=== PATIENT | male | born 1955 | race Caucasian/White ===

== ENCOUNTER 2017-01-30 18:53 | Inpatient (IN) | payer MEDICAID ==
[2017-01-30] MEDS ORDERED: Pantoprazole 40 mg EC Tab PO STA (21:06)
--- NOTE | 2017-01-30 21:10 | ED Physician Chart ---
ED Chief Complaint/HPI - Patient Information Date Seen:: 01/30/17 Time Seen:: 21:08 Chief Complaint:: Skin rashes and stomach pain History of Present Illness:: 61 yo male was brought to ER by a caregiver at a facility. Per caregiver, the patient complained about skin rashes, stomach pain and constipation for 2 days. The patient also burped a lot. Allergies:: Allergies Allergy/AdvReac Type Severity Reaction Status Date / Time No Known Allergies Allergy Verified 01/30/17 19:57 Vitals:: Vital Signs - 8 hr 01/30/17 19:25 Temp 97.1 F HR 63 RR 20 BP 151/100 O2 Sat % 96 <Gloria Smith - Last Filed: 01/31/17 01:00> - Patient Information Allergies:: Allergies Allergy/AdvReac Type Severity Reaction Status Date / Time No Known Allergies Allergy Verified 01/30/17 19:57 Vitals:: Vital Signs - 8 hr 01/30/17 19:25 Temp 97.1 F HR 63 RR 20 BP 151/100 O2 Sat % 96 Historian:: Patient <Oleg Echevarria - Last Filed: 02/03/17 16:51> ED Review of Systems - Review of Systems General/Constitutional: No fever, No chills Skin: Skin lesions Head: No headache Eyes: No loss of vision ENT: No earache Neck: No neck pain Cardio Vascular: No chest pain Pulmonary: No SOB GI: No nausea, No vomiting, Pain (epigastric pain) Musculoskeletal: No bone or joint pain <Gloria Smith Last Filed: 01/31/17 01:00> ED Past Medical History - Past Medical History Past Medical History: PUD/GERD, Seizures, Other (tinea body) Social History: Non Smoker, No Alcohol, No Drug Use Surgical History: None <Gloria Smith Filed: 01/31/17 01:00> Family Medical History - Family Member Mother History Unknown: Yes <Gloria Smith Filed: 01/31/17 01:00> ED Physical Exam - Physical Examination General/Constitutional: Awake, Alert Head: Atraumatic Eyes: PERRL, EOMI Other Skin comments:: diffusely dry skin, erythematus scaly skin in bilateral skin folds on the chest and bilateral inguinal area ENMT: Nasal exam nl Neck: No nuchal rigidity Other Respiratory comments:: B/L crackles Cardio Vascular: RRR, No murmur, gallop, rubs, NL S1 S2 GI: No tenderness/rebounding/guarding Extremities: Full ROM, normal strength in all extremities Neuro/Psych: No focal deficits <Gloria Smith Last Filed: 01/31/17 01:00> ED Labs/Radiology/EKG Results - Lab Results Results: Laboratory Tests 01/30/17 01/30/17 01/30/17 21:36 21:36 22:45 WBC 5.5 RBC 4.42 Hgb 15.0 Hct 43.7 MCV 98.9 MCH 33.9 H MCHC Differential 34.3 RDW 13.1 Plt Count 100 L MPV 8.3 Neutrophils (Manual) 50 Lymphocytes 30 Monocytes 17 H Eosinophils 3 Platelet Estimate DECREASED PLATELETS Sodium 118 L* 120 L Potassium 3.7 4.1 Chloride 89 L 88 L Carbon Dioxide 23.9 26.5 Anion Gap 8.8 9.6 BUN 11 11 Creatinine 0.7 0.7 Est GFR ( Amer) > 60.0 > 60.0 Est GFR (Non-Af Amer) > 60.0 > 60.0 BUN/Creatinine Ratio 15.7 15.7 Glucose 89 84 Calcium 9.0 9.2 Total Bilirubin 0.6 AST 31 ALT 18 Alkaline Phosphatase 55 Total Protein 6.7 Albumin 4.1 L Globulin 2.6 Albumin/Globulin Ratio 1.6 <Oleg Echevarria - Last Filed: 02/03/17 16:51> ED Assessment - Assessment Critical Care Time: 45 min Excludes all billable procedures: Yes This condition life threatening/high prob of deterioration: No <Gloria Smith - Last Filed: 01/31/17 01:00> - Assessment General Assessment: admitted to med surg for 120 hyponatremia verified pmd aware and will manage fluids <Oleg Echevarria - Last Filed: 02/03/17 16:51> ED Septic Shock - . Is Septic Shock (SBP<90, OR Lactate>4 mmol\L) present?: No - <6hrs of presentation: Vital Signs: Vital Signs - 8 hr 01/30/17 19:25 Temp 97.1 F HR 63 RR 20 BP 151/100 O2 Sat % 96 <Gloria Smith Last Filed: 01/31/17 01:00> - <6hrs of presentation: Vital Signs: Vital Signs - 8 hr 01/30/17 19:25 Temp 97.1 F HR 63 RR 20 BP 151/100 O2 Sat % 96 <Oleg Echevarria - Last Filed: 02/03/17 16:51> ED Reassessment (Disposition) - Reassessment Reassessment Condition:: Unchanged - Patient Disposition Discharge/Transfer:: Acute Care w/in this hosp <Gloria Smith - Last Filed: 01/31/17 01:00> ED Discharge Plan <Gloria Smith - Last Filed: 01/31/17 01:00> <Oleg Echevarria - Last Filed: 02/03/17 16:51> - Patient Disposition Admit/Discharge/Transfer: Acute Care w/in this hosp Condition at Disposition: Stable
[2017-01-30 21:48] LABS: EOSINOPHILE ABSOLUTE 0.2 Th/cmm (0.1-0.4); HEMATOCRIT 43.7 % (41.0-60); LYMPHOCYTE ABSOLUTE 1.5 Th/cmm (1.5-3.0); MEAN CELL VOLUME 98.9 fl (80-99); MEAN CORPUSCULAR HEMOGLOBIN 33.9 pg (26.0-30.0); MEAN CORPUSCULAR HGB CONC 34.3 pg (28.0-36.0); MEAN PLATELET VOLUME 8.3 fl; NEUTROPHILE ABSOLUTE 2.8 Th/cmm (1.8-8.0); RED BLOOD COUNT 4.42 Mil/cmm (4.30-5.70); RED CELL DISTRIBUTION WIDTH 13.1 % (11.5-20.0); WHITE BLOOD COUNT 5.5 Th/cmm (4.8-10.8)
[2017-01-30 21:59] LABS: ALB/GLOB RATIO 1.6 (1.0-1.8); ALBUMIN 4.1 gm/dL (4.2-5.5); ALKALINE PHOSPHATASE 55 U/L (34-104); ANION GAP 8.8 (7.0-16.0); BILIRUBIN,TOTAL 0.6 mg/dL (0.3-1.0); BUN - UREA NITROGEN 11 mg/dL (7-25); CARBON DIOXIDE 23.9 mEq/L (21.0-31.0); CHLORIDE 89 mEq/L (98-107); CREATININE - SERUM 0.7 mg/dL (0.7-1.3); GFR AFRICAN-AMERICAN > 60.0 ml/min (>90); GFR NON AFRICAN-AMERICAN > 60.0 ml/min; GLUCOSE 89 mg/dL (70-105); PLATELET COUNT 100 Th/cmm (150-400); POTASSIUM SERUM 3.7 mEq/L (3.5-5.1); SGOT 31 U/L (13-39); SGPT/ALT 18 U/L (7-52); TOTAL PROTEIN,SERUM 6.7 gm/dL (6.0-8.3)
[2017-01-30] MEDS ORDERED: Pantoprazole 40 mg EC Tab PO ONE (21:59)
[2017-01-30 22:06] LABS: SODIUM SERUM 118 mEq/L (136-145)
[2017-01-30 22:35] LABS: EOSINOPHIL 3 % (0-5); LYMPHOCYTE 30 % (20-50); MONOCYTE 17 % (2-10); NEUTROPHILS 50 % (40-80)
[2017-01-30 22:36] LABS: PLATELET ESTIMATE DECREASED PLATELETS (NORMAL)
[2017-01-30 23:09] LABS: ANION GAP 9.6 (7.0-16.0); BUN - UREA NITROGEN 11 mg/dL (7-25); CALCIUM SERUM 9.2 mg/dL (8.6-10.3); CARBON DIOXIDE 26.5 mEq/L (21.0-31.0); CHLORIDE 88 mEq/L (98-107); CREATININE - SERUM 0.7 mg/dL (0.7-1.3); GFR AFRICAN-AMERICAN > 60.0 ml/min (>90); GFR NON AFRICAN-AMERICAN > 60.0 ml/min; GLUCOSE 84 mg/dL (70-105); POTASSIUM SERUM 4.1 mEq/L (3.5-5.1)
[2017-01-30 23:22] LABS: SODIUM SERUM 120 mEq/L (136-145)
[2017-01-30] MEDS ORDERED: NITROGLYCERIN OINT 2% 1 INCH PACKET TP STA (23:59)
[2017-01-31] MEDS ORDERED: NITROGLYCERIN OINT 2% 1 INCH PACKET TP ONE (00:06)
[2017-01-31 03:26] VITALS: BP 117/78
[2017-01-31] MEDS: Sodium Chloride 0.9% 1,000 ML IV SCH ×3 (03:27→22:08)
[2017-01-31 05:27] LABS: EOSINOPHILE ABSOLUTE 0.3 Th/cmm (0.1-0.4); HEMATOCRIT 43.9 % (41.0-60); HEMOGLOBIN 14.9 gm/dL (12-16); LYMPHOCYTE ABSOLUTE 1.4 Th/cmm (1.5-3.0); MEAN CELL VOLUME 99.1 fl (80-99); MEAN CORPUSCULAR HEMOGLOBIN 33.6 pg (26.0-30.0); MEAN CORPUSCULAR HGB CONC 33.9 pg (28.0-36.0); MEAN PLATELET VOLUME 8.4 fl; MONOCYTE ABSOLUTE 1.3 Th/cmm (0.3-1.0); NEUTROPHILE ABSOLUTE 4.4 Th/cmm (1.8-8.0); PLATELET COUNT 91 Th/cmm (150-400); RED BLOOD COUNT 4.43 Mil/cmm (4.30-5.70); RED CELL DISTRIBUTION WIDTH 12.9 % (11.5-20.0); WHITE BLOOD COUNT 7.4 Th/cmm (4.8-10.8)
[2017-01-31 05:46] LABS: ANION GAP 10.6 (7.0-16.0); BUN - UREA NITROGEN 10 mg/dL (7-25); CALCIUM SERUM 8.8 mg/dL (8.6-10.3); CARBON DIOXIDE 23.2 mEq/L (21.0-31.0); CHLORIDE 91 mEq/L (98-107); CREATININE - SERUM 0.7 mg/dL (0.7-1.3); GFR AFRICAN-AMERICAN > 60.0 ml/min (>90); GFR NON AFRICAN-AMERICAN > 60.0 ml/min; GLUCOSE 76 mg/dL (70-105); POTASSIUM SERUM 3.8 mEq/L (3.5-5.1); SODIUM SERUM 121 mEq/L (136-145)
--- NOTE | 2017-01-31 08:12 | History & Physical ---
ADMIT DATE: 01/31/2017 DATE OF SERVICE: 01/31/2017 HISTORY OF PRESENT ILLNESS: This is a 61-year-old male who was admitted from a [facility] and [facility] with chief complaint of abdominal pain and constipation. REVIEW OF SYSTEMS: GENERAL: This is a 61-year-old male that appears as stated. Denies any fever, denies any chills. HEAD: Denies any headache. Denies any dizziness. EYES: Denies any eye pain. Denies any blurring of vision. NECK: Denies any neck pain, denies any nuchal rigidity. CARDIOVASCULAR: Denies any chest pain, denies any palpitation. RESPIRATORY: Denies shortness of breath. Denies coughing. GASTROINTESTINAL: Positive abdominal pain. Positive constipation. Denies diarrhea. MUSCULOSKELETAL: Denies any joint pain. Denies any muscle pain. SOCIAL HISTORY: The patient lives in a [facility] and [facility] prior to hospitalization. PAST SURGICAL HISTORY: Unremarkable. FAMILY HISTORY: Unremarkable. PAST MEDICAL HISTORY: Includes hypertension, seizure, gastroesophageal reflux disease, benign prostatic hypertrophy, insomnia, bipolar. PHYSICAL EXAMINATION: GENERAL: This is a 61-year-old male that appears as stated. The patient is awake, alert, oriented x 2-3 with episodes of forgetfulness. HEENT: Head is atraumatic, normocephalic. Eyes: Bilateral conjunctivae are clear. Bilateral pupils are equally round and reactive. NECK: Supple. No JVD. CARDIOVASCULAR: S1 and S2, without murmur. PULMONARY: Clear to auscultation. GASTROINTESTINAL: Soft and nontender without guarding. Positive bowel sounds. MUSCULOSKELETAL: No clubbing, no cyanosis noted. ASSESSMENT: 1. Hyponatremia. 2. Hypertension. 3. Bipolar. 4. Seizure. 5. Gastroesophageal reflux disease. 6. Benign prostatic hypertrophy. 7. Insomnia. 8. Obesity. PLAN: We will keep the patient inpatient. We will follow up with the solid plasterer and also we will monitor the patient's electrolytes. We will continue to monitor the patient's condition and also nutritional status. Treatment plans were discussed with the patient's nurse. Treatment plans were discussed with Dr. Franz. JOB# [id number]
--- NOTE | 2017-01-31 08:35 | Diagnostic Imaging Report ---
CHEST X-RAY: AP view INDICATION: Cough COMPARISON: None FINDINGS: Increased bibasal linear markings are noted. No focal consolidation. There may be a trace right effusion. Suboptimal lung volume noted. Heart size at the upper limits of normal. Mildly tortuous aorta is noted. Degenerative changes of the spine are noted. IMPRESSION: Suboptimal lung volumes increased bibasal lung markings. Findings may be due to atelectasis. Faint infiltrate is considered less likely, however, clinical correlation is recommended.
[2017-01-31] MEDS ORDERED: PANTOPRAZOLE SODIUM 20 MG PO SCH (09:00)
[2017-01-31] MEDS: Benztropine 1 MG TAB PO SCH ×2 (10:07→17:14)
[2017-01-31] MEDS: Calcium Carb/Vit D 500 mg/200 U Tab PO SCH ×2 (10:08→17:12)
[2017-01-31] MEDS: Pantoprazole 40 mg EC Tab PO SCH (10:09)
[2017-01-31] MEDS ORDERED: VTE Chemical Prophylaxis Screen/Admission MC PRN (12:25)
[2017-01-31 19:01] LABS: URINE MICROSCOPIC INDICATED? YES; URINE SOURCE MIDSTREAM
[2017-01-31 19:05] LABS: URINE BILIRUBIN NEGATIVE (NEGATIVE); URINE BLOOD TRACE (NEGATIVE); URINE GLUCOSE (UA) NEGATIVE (NEGATIVE); URINE KETONE TRACE mg/dL (NEGATIVE); URINE LEUKOCYTE ESTERASE NEGATIVE (NEGATIVE); URINE NITRATE NEGATIVE (NEGATIVE); URINE PH 6.5 (4.6 - 8.0); URINE PROTEIN NEGATIVE (NEGATIVE); URINE UROBILINOGEN 0.2 E.U./dL (0.2 - 1.0)
[2017-01-31 19:07] LABS: URINE CLARITY CLEAR (CLEAR); URINE COLOR YELLOW
[2017-01-31 19:09] LABS: URINE BACTERIA NONE SEEN /hpf (NONE SEEN); URINE EPITHELIAL CELLS NONE SEEN /lpf (FEW); URINE RBC 0-2 /hpf (0-5); URINE WBC NONE SEEN /hpf (0-5)
[2017-02-01] MEDS: Sodium Chloride 0.9% 1,000 ML IV SCH ×3 (05:48→22:52)
[2017-02-01 06:51] LABS: ANION GAP 10.8 (7.0-16.0); BUN - UREA NITROGEN 11 mg/dL (7-25); CALCIUM SERUM 9.1 mg/dL (8.6-10.3); CARBON DIOXIDE 22.1 mEq/L (21.0-31.0); CHLORIDE 93 mEq/L (98-107); CREATININE - SERUM 0.8 mg/dL (0.7-1.3); GFR AFRICAN-AMERICAN > 60.0 ml/min (>90); GFR NON AFRICAN-AMERICAN > 60.0 ml/min; GLUCOSE 71 mg/dL (70-105); POTASSIUM SERUM 3.9 mEq/L (3.5-5.1); SODIUM SERUM 122 mEq/L (136-145); URIC ACID 2.7 mg/dL (4.4-7.6)
[2017-02-01] MEDS: Calcium Carb/Vit D 500 mg/200 U Tab PO SCH ×2 (08:56→16:29)
[2017-02-01] MEDS: Benztropine 1 MG TAB PO SCH ×2 (08:56→16:30)
[2017-02-01] MEDS: Pantoprazole 40 mg EC Tab PO SCH (08:57)
--- NOTE | 2017-02-01 09:24 | General Progress Note ---
Subjective - Review of Systems Events since last encounter: patient still with c/o abdominal pain patient awake alert Objective - Results Result Diagrams: 01/31/17 04:33 02/01/17 05:14 Recent Labs: Laboratory Last Values WBC 7.4 Th/cmm (4.8-10.8) D 01/31/17 04:33 RBC 4.43 Mil/cmm (4.30-5.70) 01/31/17 04:33 Hgb 14.9 gm/dL (12-16) 01/31/17 04:33 Hct 43.9 % (41.0-60) 01/31/17 04:33 MCV 99.1 fl (80-99) H 01/31/17 04:33 MCH 33.6 pg (26.0-30.0) H 01/31/17 04:33 MCHC Differential 33.9 pg (28.0-36.0) 01/31/17 04:33 RDW 12.9 % (11.5-20.0) 01/31/17 04:33 Plt Count 91 Th/cmm (150-400) L 01/31/17 04:33 MPV 8.4 fl 01/31/17 04:33 Neutrophils (Manual) 50 % (40-80) 01/30/17 21:36 Lymphocytes 30 % (20-50) 01/30/17 21:36 Monocytes 17 % (2-10) H 01/30/17 21:36 Eosinophils 3 % (0-5) 01/30/17 21:36 Platelet Estimate DECREASED PLATELETS (NORMAL) 01/30/17 21:36 Sodium 122 mEq/L (136-145) L 02/01/17 05:14 Potassium 3.9 mEq/L (3.5-5.1) 02/01/17 05:14 Chloride 93 mEq/L (98-107) L 02/01/17 05:14 Carbon Dioxide 22.1 mEq/L (21.0-31.0) 02/01/17 05:14 Anion Gap 10.8 (7.0-16.0) 02/01/17 05:14 BUN 11 mg/dL (7-25) 02/01/17 05:14 Creatinine 0.8 mg/dL (0.7-1.3) 02/01/17 05:14 Est GFR ( Amer) > 60.0 ml/min (>90) 02/01/17 05:14 Est GFR (Non-Af Amer) > 60.0 ml/min 02/01/17 05:14 BUN/Creatinine Ratio 13.8 02/01/17 05:14 Glucose 71 mg/dL (70-105) 02/01/17 05:14 Uric Acid 2.7 mg/dL (4.4-7.6) L 02/01/17 05:14 Calcium 9.1 mg/dL (8.6-10.3) 02/01/17 05:14 Total Bilirubin 0.6 mg/dL (0.3-1.0) 01/30/17 21:36 AST 31 U/L (13-39) 01/30/17 21:36 ALT 18 U/L (7-52) 01/30/17 21:36 Alkaline Phosphatase 55 U/L (34-104) 01/30/17 21:36 Total Protein 6.7 gm/dL (6.0-8.3) 01/30/17 21:36 Albumin 4.1 gm/dL (4.2-5.5) L 01/30/17 21:36 Globulin 2.6 gm/dL 01/30/17 21:36 Albumin/Globulin Ratio 1.6 (1.0-1.8) 01/30/17 21:36 TSH 2.34 uIU/ml (0.34-5.60) 02/01/17 05:14 Urine Source MIDSTREAM 01/31/17 18:28 Urine Color YELLOW 01/31/17 18:28 Urine Clarity CLEAR (CLEAR) 01/31/17 18:28 Urine pH 6.5 (4.6 - 8.0) 01/31/17 18:28 Ur Specific [place] 1.010 (1.005-1.030) 01/31/17 18:28 Urine Protein NEGATIVE mg/dL (NEGATIVE) 01/31/17 18:28 Urine Glucose (UA) NEGATIVE mg/dL (NEGATIVE) 01/31/17 18:28 Urine Ketones TRACE mg/dL (NEGATIVE) 01/31/17 18:28 Urine Blood TRACE (NEGATIVE) 01/31/17 18:28 Urine Nitrate NEGATIVE (NEGATIVE) 01/31/17 18:28 Urine Bilirubin NEGATIVE (NEGATIVE) 01/31/17 18:28 Urine Urobilinogen 0.2 E.U./dL (0.2 - 1.0) 01/31/17 18:28 Ur Leukocyte Esterase NEGATIVE (NEGATIVE) 01/31/17 18:28 Urine RBC 0-2 /hpf (0-5) H 01/31/17 18:28 Urine WBC NONE SEEN /hpf (0-5) 01/31/17 18:28 Ur Epithelial Cells NONE SEEN /lpf (FEW) 01/31/17 18:28 Urine Bacteria NONE SEEN /hpf (NONE SEEN) 01/31/17 18:28 - Physical Exam Vitals and I&O: Vital Signs Temp 98.0 F 02/01/17 07:59 Pulse 64 02/01/17 07:59 Resp 18 02/01/17 07:59 BP 143/86 02/01/17 07:59 Pulse Ox 97 02/01/17 07:59 Intake & Output 01/31/17 02/01/17 02/01/17 18:59 06:59 18:59 Intake Total 2500 2518.750 Output Total 1300 Balance 2500 1218.750 Weight (lbs) 96.162 kg 97.84 kg Intake: Intake, IV Amount 1000 2018.750 Sodium Chloride 0.9% 1, 1000 2018.750 000 ml @ 125 mls/hr IV . Q8H [facility] Rx#:[id number] Oral 1500 500 Output: Urine 1300 Other: # Voids 5 # Bowel Movements 0 Active Medications: Current Medications Acetaminophen (Tylenol) 650 mg PO Q4HR PRN PRN Reason: Pain (Mild) Last Admin: 02/01/17 00:20 Dose: 650 mg Aripiprazole (Abilify) 5 mg PO BID [facility] PRN Reason: Protocol Stop: 04/01/17 08:59 Atenolol (Tenormin) 25 mg PO DAILY [facility] Stop: 04/01/17 08:59 Last Admin: 01/31/17 10:33 Dose: Not Given Benztropine Mesylate (Cogentin) 2 mg PO BID [facility] Stop: 04/01/17 08:59 Last Admin: 02/01/17 08:56 Dose: 2 mg Buspirone HCl (Buspar) 10 mg PO BID [facility] Stop: 04/01/17 08:59 Calcium/Vitamin D (Oscal W/Vitamin D) 1 tab PO BID [facility] Stop: 04/01/17 08:59 Last Admin: 02/01/17 08:56 Dose: 1 tab Clotrimazole (Lotrimin 1% Cream) 1 appl TP DAILY JONATHAN Stop: 04/01/17 08:59 Last Admin: 02/01/17 09:04 Dose: Not Given Diphenhydramine HCl (Benadryl) 50 mg PO TID PRN PRN Reason: Itching Stop: 04/01/17 17:31 Divalproex Sodium (Depakote Dr) 500 mg PO BID JONATHAN PRN Reason: Protocol Stop: 04/01/17 08:59 Last Admin: 02/01/17 08:56 Dose: 500 mg Docusate Sodium (Colace) 100 mg PO BID JONATHAN Stop: 04/01/17 08:59 Last Admin: 02/01/17 08:57 Dose: 100 mg Sodium Chloride (Nacl 0.9%) 1,000 mls @ 125 mls/hr IV .Q8H JONATHAN Stop: 04/01/17 00:29 Last Infusion: 02/01/17 06:17 Dose: 125 mls/hr Levetiracetam (Keppra) 1,000 mg PO HS JONATHAN Stop: 04/01/17 20:59 Last Admin: 01/31/17 21:12 Dose: 1,000 mg Levetiracetam (Keppra) 750 mg PO BID [facility] Stop: 04/01/17 08:59 Last Admin: 02/01/17 08:57 Dose: 750 mg Miscellaneous (Vte [employer] Prophylaxis Screen/ Admission) 1 ea [facility] PRN PRN PRN Reason: PROTOCOL Stop: 04/01/17 12:24 Oxcarbazepine (Trileptal) 600 mg PO BID JONATHAN PRN Reason: Protocol Stop: 04/01/17 08:59 Last Admin: 02/01/17 08:57 Dose: 600 mg Pantoprazole Sodium (Protonix) 40 mg PO DAILY JONATHAN Stop: 04/01/17 08:59 Last Admin: 02/01/17 08:57 Dose: 40 mg Tamsulosin HCl (Flomax) 0.4 mg PO DAILY JONATHAN Stop: 04/01/17 08:59 Last Admin: 02/01/17 08:56 Dose: 0.4 mg
--- NOTE | 2017-02-01 09:50 | Diagnostic Imaging Report ---
KUB single view HISTORY: Abdominal pain distention. COMPARISON: None FINDINGS: Generalized gas-filled loops of bowel are noted. No abnormal calcifications identified. Osseous structures are intact. IMPRESSION: Generalized gaseous distended loops of bowel which is nonspecific. A mild ileus may be considered in the appropriate clinical setting.
--- NOTE | 2017-02-01 13:06 | Consultation ---
DATE OF CONSULTATION: 01/31/2017 REASON FOR CONSULTATION: Electrolyte imbalance and fluid management. HISTORY OF PRESENT ILLNESS: This is a 61-year-old male with past medical history of epilepsy, who came in because of constipation. A few hours prior to admission, the patient complained of abdominal pain. He had no bowel movement for several days. He had no episode of nausea and vomiting. Upon arrival at the Emergency Room, labs drawn revealed sodium of 120. PAST MEDICAL HISTORY: 1. Intellectual disability. 2. Epilepsy. 3. Essential hypertension. 4. GERD. 5. BPH. 6. Bipolar disorder. 7. Insomnia. CURRENT MEDICATIONS: He is currently on acetaminophen, Abilify, atenolol, Cogentin, BuSpar, clonidine, clotrimazole 1%, divalproex, docusate sodium, fluoxetine, levetiracetam, oxcarbazepine, pantoprazole, tamsulosin, and temazepam. ALLERGIES: No known drug allergies. SOCIAL AND FAMILY HISTORY: I was unable to obtain from the patient because the patient has slow mentation and unable to provide any information. REVIEW OF SYSTEMS: Again, I was unable to decipher directly from the patient because of the above mental reasons. PHYSICAL EXAMINATION: GENERAL: The patient is awake, mumbling, not in any distress. VITAL SIGNS: Blood pressure is 128/78, pulse 81, and temperature 97.9 degrees. SKIN: Good turgor, warm. He has macular rash in his upper extremities, linear papular rash on his abdomen, some on his legs. HEENT: Head: Normocephalic, atraumatic. Eyes: Extraocular muscles intact. Pupils equal, round, and reactive to light and accommodation. Anicteric sclerae. [place] conjunctivae. Nose: Midline nasal septum. Mouth: Moist mucosa with adequate dentition. NECK: Supple, no adenopathy, no thyromegaly, no bruits. Trachea palpated in the midline. CHEST AND CARDIOVASCULAR: S1 and S2. No rub, murmur, nor gallop appreciated. Point of maximal impulse fifth intercostal space, left midclavicular line. No abdominal or femoral bruits appreciated. LUNGS: Equal expansion. No use of accessory muscles. No supraclavicular retractions. Decreased breath sounds, but no rales nor wheezes appreciated. ABDOMEN: Globular, minimal bowel sounds, no tenderness on palpation. No bruits either diastolic or systolic. RECTAL: The patient refused. GENITOURINARY: Normal-appearing male genitalia. MUSCULOSKELETAL: No effusions present in his joints, but unable to assess his range of motion. EXTREMITIES: No evidence of any edema, cyanosis nor clubbing with palpable femoral, popliteal and dorsalis pedis pulses. NEUROLOGIC: The patient is awake; however, unable to follow my neuro commands, so I was not able to pursue further by neuro exam. LABORATORY DATA: Labs did reveal white count 7.4, hemoglobin 14.9, hematocrit 43.9, platelets 91, and polys 50%. Sodium was 121, potassium 3.8, chloride 91, bicarb 23, BUN 10, creatinine 0.7, glucose 76, and calcium 8.8. Albumin 4.1. IMPRESSION: 1. Hyponatremia, possibly syndrome of inappropriate antidiuretic hormone secondary to SSRI as well as carbamazepine in the form of Trileptal. 2. Macular rash, upper arms, etiology of possibly drug reaction. 3. Abdominal pain secondary to constipation, rule out ileus versus partial small bowel obstruction. 4. Fungal infection involving chest area. 5. Epilepsy. 6. Essential hypertension. 7. Gastroesophageal reflux disease. 8. Benign prostatic hypertrophy. 9. Bipolar disorder. 10. Insomnia. PLAN: 1. Discontinue SSRI. 2. Consider discontinuing Trileptal because carbamazepine can cause syndrome of inappropriate antidiuretic hormone. Consider switching to another antiepileptic drug. 3. Agree with clotrimazole which could be applied in the chest area. 4. Continue normal saline. 5. Urinalysis. 6. Continue with Colace. 7. Benadryl. 8. KUB. Thank you, Dr. Franz for this consult. I will follow the patient closely with you. JOB# [id number]
--- NOTE | 2017-02-01 15:13 | General Progress Note ---
Subjective - Review of Systems Service Date: 02/01/17 Subjective: awake, confused Objective - Results Result Diagrams: 01/31/17 04:33 02/01/17 05:14 Recent Labs: Laboratory Last Values WBC 7.4 Th/cmm (4.8-10.8) D 01/31/17 04:33 RBC 4.43 Mil/cmm (4.30-5.70) 01/31/17 04:33 Hgb 14.9 gm/dL (12-16) 01/31/17 04:33 Hct 43.9 % (41.0-60) 01/31/17 04:33 MCV 99.1 fl (80-99) H 01/31/17 04:33 MCH 33.6 pg (26.0-30.0) H 01/31/17 04:33 MCHC Differential 33.9 pg (28.0-36.0) 01/31/17 04:33 RDW 12.9 % (11.5-20.0) 01/31/17 04:33 Plt Count 91 Th/cmm (150-400) L 01/31/17 04:33 MPV 8.4 fl 01/31/17 04:33 Neutrophils (Manual) 50 % (40-80) 01/30/17 21:36 Lymphocytes 30 % (20-50) 01/30/17 21:36 Monocytes 17 % (2-10) H 01/30/17 21:36 Eosinophils 3 % (0-5) 01/30/17 21:36 Platelet Estimate DECREASED PLATELETS (NORMAL) 01/30/17 21:36 Sodium 122 mEq/L (136-145) L 02/01/17 05:14 Potassium 3.9 mEq/L (3.5-5.1) 02/01/17 05:14 Chloride 93 mEq/L (98-107) L 02/01/17 05:14 Carbon Dioxide 22.1 mEq/L (21.0-31.0) 02/01/17 05:14 Anion Gap 10.8 (7.0-16.0) 02/01/17 05:14 BUN 11 mg/dL (7-25) 02/01/17 05:14 Creatinine 0.8 mg/dL (0.7-1.3) 02/01/17 05:14 Est GFR ( Amer) > 60.0 ml/min (>90) 02/01/17 05:14 Est GFR (Non-Af Amer) > 60.0 ml/min 02/01/17 05:14 BUN/Creatinine Ratio 13.8 02/01/17 05:14 Glucose 71 mg/dL (70-105) 02/01/17 05:14 Uric Acid 2.7 mg/dL (4.4-7.6) L 02/01/17 05:14 Calcium 9.1 mg/dL (8.6-10.3) 02/01/17 05:14 Total Bilirubin 0.6 mg/dL (0.3-1.0) 01/30/17 21:36 AST 31 U/L (13-39) 01/30/17 21:36 ALT 18 U/L (7-52) 01/30/17 21:36 Alkaline Phosphatase 55 U/L (34-104) 01/30/17 21:36 Total Protein 6.7 gm/dL (6.0-8.3) 01/30/17 21:36 Albumin 4.1 gm/dL (4.2-5.5) L 01/30/17 21:36 Globulin 2.6 gm/dL 01/30/17 21:36 Albumin/Globulin Ratio 1.6 (1.0-1.8) 01/30/17 21:36 TSH 2.34 uIU/ml (0.34-5.60) 02/01/17 05:14 Urine Source MIDSTREAM 01/31/17 18:28 Urine Color YELLOW 01/31/17 18:28 Urine Clarity CLEAR (CLEAR) 01/31/17 18:28 Urine pH 6.5 (4.6 - 8.0) 01/31/17 18:28 Ur Specific [place] 1.010 (1.005-1.030) 01/31/17 18:28 Urine Protein NEGATIVE mg/dL (NEGATIVE) 01/31/17 18:28 Urine Glucose (UA) NEGATIVE mg/dL (NEGATIVE) 01/31/17 18:28 Urine Ketones TRACE mg/dL (NEGATIVE) 01/31/17 18:28 Urine Blood TRACE (NEGATIVE) 01/31/17 18:28 Urine Nitrate NEGATIVE (NEGATIVE) 01/31/17 18:28 Urine Bilirubin NEGATIVE (NEGATIVE) 01/31/17 18:28 Urine Urobilinogen 0.2 E.U./dL (0.2 - 1.0) 01/31/17 18:28 Ur Leukocyte Esterase NEGATIVE (NEGATIVE) 01/31/17 18:28 Urine RBC 0-2 /hpf (0-5) H 01/31/17 18:28 Urine WBC NONE SEEN /hpf (0-5) 01/31/17 18:28 Ur Epithelial Cells NONE SEEN /lpf (FEW) 01/31/17 18:28 Urine Bacteria NONE SEEN /hpf (NONE SEEN) 01/31/17 18:28 - Physical Exam Vitals and I&O: Vital Signs Temp 97.6 F 02/01/17 11:45 Pulse 80 02/01/17 11:45 Resp 18 02/01/17 11:45 BP 135/89 02/01/17 11:45 Pulse Ox 98 02/01/17 11:45 Intake & Output 01/31/17 02/01/17 02/01/17 18:59 06:59 18:59 Intake Total 2500 2518.750 943.749 Output Total 1300 Balance 2500 1218.750 943.749 Weight (lbs) 96.162 kg 97.84 kg Intake: Intake, IV Amount 1000 2017.750 943.749 Sodium Chloride 0.9% 1, 1000 2017.750 943.749 000 ml @ 125 mls/hr IV . Q8H [facility] Rx#:[id number] Oral 1500 500 Output: Urine 1300 Other: # Voids 5 # Bowel Movements 0 Active Medications: Current Medications Acetaminophen (Tylenol) 650 mg PO Q4HR PRN PRN Reason: Pain (Mild) Last Admin: 02/01/17 00:20 Dose: 650 mg Aripiprazole (Abilify) 5 mg PO BID [facility] PRN Reason: Protocol Stop: 04/01/17 08:59 Atenolol (Tenormin) 25 mg PO DAILY [facility] Stop: 04/01/17 08:59 Last Admin: 02/01/17 10:33 Dose: Not Given Benztropine Mesylate (Cogentin) 2 mg PO BID [facility] Stop: 04/01/17 08:59 Last Admin: 02/01/17 08:56 Dose: 2 mg Buspirone HCl (Buspar) 10 mg PO BID [facility] Stop: 04/01/17 08:59 Calcium/Vitamin D (Oscal W/Vitamin D) 1 tab PO BID [facility] Stop: 04/01/17 08:59 Last Admin: 02/01/17 08:56 Dose: 1 tab Diphenhydramine HCl (Benadryl) 50 mg PO TID PRN PRN Reason: Itching Stop: 04/01/17 17:31 Divalproex Sodium (Depakote Dr) 500 mg PO BID [facility] PRN Reason: Protocol Stop: 04/01/17 08:59 Last Admin: 02/01/17 08:56 Dose: 500 mg Docusate Sodium (Colace) 100 mg PO BID [facility] Stop: 04/01/17 08:59 Last Admin: 02/01/17 08:57 Dose: 100 mg Sodium Chloride (Nacl 0.9%) 1,000 mls @ 125 mls/hr IV .Q8H [facility] Stop: 04/01/17 00:29 Last Infusion: 02/01/17 14:34 Dose: 125 mls/hr Levetiracetam (Keppra) 1,000 mg PO HS [facility] Stop: 04/01/17 20:59 Last Admin: 01/31/17 21:12 Dose: 1,000 mg Levetiracetam (Keppra) 750 mg PO BID [facility] Stop: 04/01/17 08:59 Last Admin: 02/01/17 08:57 Dose: 750 mg Miscellaneous (Vte Chemical Prophylaxis Screen/ Admission) 1 ea [facility] PRN PRN PRN Reason: PROTOCOL Stop: 04/01/17 12:24 Oxcarbazepine (Trileptal) 600 mg PO BID [facility] PRN Reason: Protocol Stop: 04/01/17 08:59 Last Admin: 02/01/17 08:57 Dose: 600 mg Pantoprazole Sodium (Protonix) 40 mg PO DAILY [facility] Stop: 04/01/17 08:59 Last Admin: 02/01/17 08:57 Dose: 40 mg Tamsulosin HCl (Flomax) 0.4 mg PO DAILY [facility] Stop: 04/01/17 08:59 Last Admin: 02/01/17 08:56 Dose: 0.4 mg General: Alert, Mild distress HEENT: Atraumatic, PERRLA, EOMI, Mucous membr. 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 Macular rash 2nd drug reaction Abd pain mild ileus Fungal infxn chest area Epilepsy Ess HTN GERD BPH Bipolar Disorder Insomnia - Plan Plan: Lab - Result Diagrams 01/31/17 04:33 02/01/17 05:14 Current Medications Acetaminophen (Tylenol) 650 mg PO Q4HR PRN PRN Reason: Pain (Mild) Last Admin: 02/01/17 00:20 Dose: 650 mg Aripiprazole (Abilify) 5 mg PO BID [facility] PRN Reason: Protocol Stop: 04/01/17 08:59 Atenolol (Tenormin) 25 mg PO DAILY [facility] Stop: 04/01/17 08:59 Last Admin: 02/01/17 10:33 Dose: Not Given Benztropine Mesylate (Cogentin) 2 mg PO BID [facility] Stop: 04/01/17 08:59 Last Admin: 02/01/17 08:56 Dose: 2 mg Buspirone HCl (Buspar) 10 mg PO BID [facility] Stop: 04/01/17 08:59 Calcium/Vitamin D (Oscal W/Vitamin D) 1 tab PO BID [facility] Stop: 04/01/17 08:59 Last Admin: 02/01/17 08:56 Dose: 1 tab Diphenhydramine HCl (Benadryl) 50 mg PO TID PRN PRN Reason: Itching Stop: 04/01/17 17:31 Divalproex Sodium (Depakote Dr) 500 mg PO BID [facility] PRN Reason: Protocol Stop: 04/01/17 08:59 Last Admin: 02/01/17 08:56 Dose: 500 mg Docusate Sodium (Colace) 100 mg PO BID [facility] Stop: 04/01/17 08:59 Last Admin: 02/01/17 08:57 Dose: 100 mg Sodium Chloride (Nacl 0.9%) 1,000 mls @ 125 mls/hr IV .Q8H [facility] Stop: 04/01/17 00:29 Last Infusion: 02/01/17 14:34 Dose: 125 mls/hr Levetiracetam (Keppra) 1,000 mg PO HS [facility] Stop: 04/01/17 20:59 Last Admin: 01/31/17 21:12 Dose: 1,000 mg Levetiracetam (Keppra) 750 mg PO BID [facility] Stop: 04/01/17 08:59 Last Admin: 02/01/17 08:57 Dose: 750 mg Miscellaneous (Vte Chemical Prophylaxis Screen/ Admission) 1 ea PRN PRN PRN Reason: PROTOCOL Stop: 04/01/17 12:24 Oxcarbazepine (Trileptal) 600 mg PO BID [facility] PRN Reason: Protocol Stop: 04/01/17 08:59 Last Admin: 02/01/17 08:57 Dose: 600 mg Pantoprazole Sodium (Protonix) 40 mg PO DAILY [facility] Stop: 04/01/17 08:59 Last Admin: 02/01/17 08:57 Dose: 40 mg Tamsulosin HCl (Flomax) 0.4 mg PO DAILY [facility] Stop: 04/01/17 08:59 Last Admin: 02/01/17 08:56 Dose: 0.4 mg Lab - Result Diagrams 01/31/17 04:33 02/01/17 05:14 Na still low @ 122 even w/ NS Fluoxitene dc'ed already will also dc Trileptal switch to Lamictal f/u electrolytes
[2017-02-02 05:20] LABS: ANION GAP 10.9 (7.0-16.0); BUN - UREA NITROGEN 9 mg/dL (7-25); CALCIUM SERUM 9.3 mg/dL (8.6-10.3); CARBON DIOXIDE 25.1 mEq/L (21.0-31.0); CHLORIDE 93 mEq/L (98-107); CREATININE - SERUM 0.7 mg/dL (0.7-1.3); GFR AFRICAN-AMERICAN > 60.0 ml/min (>90); GFR NON AFRICAN-AMERICAN > 60.0 ml/min; GLUCOSE 81 mg/dL (70-105); SODIUM SERUM 125 mEq/L (136-145)
[2017-02-02] MEDS: Sodium Chloride 0.9% 1,000 ML IV SCH ×2 (06:25→16:38)
[2017-02-02] MEDS: Pantoprazole 40 mg EC Tab PO SCH (08:46)
[2017-02-02] MEDS: Benztropine 1 MG TAB PO SCH ×2 (08:47→16:32)
[2017-02-02] MEDS: Calcium Carb/Vit D 500 mg/200 U Tab PO SCH ×2 (08:48→16:33)
--- NOTE | 2017-02-02 09:34 | General Progress Note ---
Subjective - Review of Systems Events since last encounter: awake still confused Objective - Results Result Diagrams: 01/31/17 04:33 02/02/17 04:37 Recent Labs: Laboratory Last Values WBC 7.4 Th/cmm (4.8-10.8) D 01/31/17 04:33 RBC 4.43 Mil/cmm (4.30-5.70) 01/31/17 04:33 Hgb 14.9 gm/dL (12-16) 01/31/17 04:33 Hct 43.9 % (41.0-60) 01/31/17 04:33 MCV 99.1 fl (80-99) H 01/31/17 04:33 MCH 33.6 pg (26.0-30.0) H 01/31/17 04:33 MCHC Differential 33.9 pg (28.0-36.0) 01/31/17 04:33 RDW 12.9 % (11.5-20.0) 01/31/17 04:33 Plt Count 91 Th/cmm (150-400) L 01/31/17 04:33 MPV 8.4 fl 01/31/17 04:33 Neutrophils (Manual) 50 % (40-80) 01/30/17 21:36 Lymphocytes 30 % (20-50) 01/30/17 21:36 Monocytes 17 % (2-10) H 01/30/17 21:36 Eosinophils 3 % (0-5) 01/30/17 21:36 Platelet Estimate DECREASED PLATELETS (NORMAL) 01/30/17 21:36 Sodium 125 mEq/L (136-145) L 02/02/17 04:37 Potassium 4.0 mEq/L (3.5-5.1) 02/02/17 04:37 Chloride 93 mEq/L (98-107) L 02/02/17 04:37 Carbon Dioxide 25.1 mEq/L (21.0-31.0) 02/02/17 04:37 Anion Gap 10.9 (7.0-16.0) 02/02/17 04:37 BUN 9 mg/dL (7-25) 02/02/17 04:37 Creatinine 0.7 mg/dL (0.7-1.3) 02/02/17 04:37 Est GFR ( Amer) > 60.0 ml/min (>90) 02/02/17 04:37 Est GFR (Non-Af Amer) > 60.0 ml/min 02/02/17 04:37 BUN/Creatinine Ratio 12.9 02/02/17 04:37 Glucose 81 mg/dL (70-105) 02/02/17 04:37 Uric Acid 2.7 mg/dL (4.4-7.6) L 02/01/17 05:14 Calcium 9.3 mg/dL (8.6-10.3) 02/02/17 04:37 Total Bilirubin 0.6 mg/dL (0.3-1.0) 01/30/17 21:36 AST 31 U/L (13-39) 01/30/17 21:36 ALT 18 U/L (7-52) 01/30/17 21:36 Alkaline Phosphatase 55 U/L (34-104) 01/30/17 21:36 Total Protein 6.7 gm/dL (6.0-8.3) 01/30/17 21:36 Albumin 4.1 gm/dL (4.2-5.5) L 01/30/17 21:36 Globulin 2.6 gm/dL 01/30/17 21:36 Albumin/Globulin Ratio 1.6 (1.0-1.8) 01/30/17 21:36 TSH 2.34 uIU/ml (0.34-5.60) 02/01/17 05:14 Urine Source MIDSTREAM 01/31/17 18:28 Urine Color YELLOW 01/31/17 18:28 Urine Clarity CLEAR (CLEAR) 01/31/17 18:28 Urine pH 6.5 (4.6 - 8.0) 01/31/17 18:28 Ur Specific [place] 1.010 (1.005-1.030) 01/31/17 18:28 Urine Protein NEGATIVE mg/dL (NEGATIVE) 01/31/17 18:28 Urine Glucose (UA) NEGATIVE mg/dL (NEGATIVE) 01/31/17 18:28 Urine Ketones TRACE mg/dL (NEGATIVE) 01/31/17 18:28 Urine Blood TRACE (NEGATIVE) 01/31/17 18:28 Urine Nitrate NEGATIVE (NEGATIVE) 01/31/17 18:28 Urine Bilirubin NEGATIVE (NEGATIVE) 01/31/17 18:28 Urine Urobilinogen 0.2 E.U./dL (0.2 - 1.0) 01/31/17 18:28 Ur Leukocyte Esterase NEGATIVE (NEGATIVE) 01/31/17 18:28 Urine RBC 0-2 /hpf (0-5) H 01/31/17 18:28 Urine WBC NONE SEEN /hpf (0-5) 01/31/17 18:28 Ur Epithelial Cells NONE SEEN /lpf (FEW) 01/31/17 18:28 Urine Bacteria NONE SEEN /hpf (NONE SEEN) 01/31/17 18:28 - Physical Exam Vitals and I&O: Vital Signs Temp 97.1 F 02/02/17 04:00 Pulse 95 02/02/17 08:47 Resp 20 02/02/17 04:00 BP 136/94 02/02/17 08:47 Pulse Ox 95 02/02/17 04:00 Intake & Output 02/01/17 02/02/17 02/02/17 18:59 06:59 18:59 Intake Total 2443.749 2939.584 Output Total 1500 2670 Balance 943.749 269.584 Weight (lbs) 97.522 kg 97.704 kg Intake: Intake, IV Amount 138.805 7380.584 Sodium Chloride 0.9% 1, 518.059 9723.584 000 ml @ 125 mls/hr IV . Q8H [facility] Rx#:[id number] Oral 1500 1000 Output: Urine 1500 2670 Other: # Bowel Movements 1 0 Active Medications: Current Medications Acetaminophen (Tylenol) 650 mg PO Q4HR PRN PRN Reason: Pain (Mild) Last Admin: 02/01/17 00:20 Dose: 650 mg Aripiprazole (Abilify) 5 mg PO BID [facility] PRN Reason: Protocol Stop: 04/01/17 08:59 Last Admin: 02/02/17 08:48 Dose: 5 mg Atenolol (Tenormin) 25 mg PO DAILY [facility] Stop: 04/01/17 08:59 Last Admin: 02/02/17 08:47 Dose: 25 mg Benztropine Mesylate (Cogentin) 2 mg PO BID [facility] Stop: 04/01/17 08:59 Last Admin: 02/02/17 08:47 Dose: 2 mg Buspirone HCl (Buspar) 10 mg PO BID [facility] Stop: 04/01/17 08:59 Last Admin: 02/02/17 08:46 Dose: 10 mg Calcium/Vitamin D (Oscal W/Vitamin D) 1 tab PO BID [facility] Stop: 04/01/17 08:59 Last Admin: 02/02/17 08:48 Dose: 1 tab Diphenhydramine HCl (Benadryl) 50 mg PO TID PRN PRN Reason: Itching Stop: 04/01/17 17:31 Divalproex Sodium (Depakote Dr) 500 mg PO BID [facility] PRN Reason: Protocol Stop: 04/01/17 08:59 Last Admin: 02/02/17 08:46 Dose: 500 mg Docusate Sodium (Colace) 100 mg PO BID [facility] Stop: 04/01/17 08:59 Last Admin: 02/02/17 08:48 Dose: 100 mg Sodium Chloride (Nacl 0.9%) 1,000 mls @ 125 mls/hr IV .Q8H [facility] Stop: 04/01/17 00:29 Last Admin: 02/02/17 06:25 Dose: 125 mls/hr Lamotrigine (Lamictal) 25 mg PO Q48HR@0900 [facility] Stop: 04/02/17 15:29 Last Admin: 02/01/17 15:41 Dose: 25 mg Levetiracetam (Keppra) 1,000 mg PO HS [facility] Stop: 04/01/17 20:59 Last Admin: 02/01/17 23:27 Dose: 1,000 mg Levetiracetam (Keppra) 750 mg PO BID [facility] Stop: 04/01/17 08:59 Last Admin: 02/02/17 08:46 Dose: 750 mg Miscellaneous (Vte Chemical Prophylaxis Screen/ Admission) 1 ea [facility] PRN PRN PRN Reason: PROTOCOL Stop: 04/01/17 12:24 Pantoprazole Sodium (Protonix) 40 mg PO DAILY [facility] Stop: 04/01/17 08:59 Last Admin: 02/02/17 08:46 Dose: 40 mg Tamsulosin HCl (Flomax) 0.4 mg PO DAILY [facility] Stop: 04/01/17 08:59 Last Admin: 02/02/17 08:46 Dose: 0.4 mg General: Alert, Mild distress HEENT: Atraumatic, PERRLA, EOMI, Mucous membr. moist/pink Neck: Supple, +2 carotid pulse wo bruit Cardiovascular: Regular rate, Normal S1, Normal S2 Lungs: Clear to auscultation Abdomen: Bowel sounds, Soft Extremities: no Edema Neurological: Sensation intact Skin: no Rash Psych/Mental Status: Other (confused) Assessment/Plan - Problem List Patient Problems: All Active Problems Abdominal pain (Acute) R10.9 BPH (benign prostatic hyperplasia) (Acute) N40.0 Bipolar disorder (Acute) Drug allergy (Acute) Z88.9 Epilepsy (Acute) G40.909 GERD (gastroesophageal reflux disease) (Acute) K21.9 HTN (hypertension) (Acute) I10 Hyponatremia (Acute) E87.1 Ileus (Acute) K56.7 Insomnia (Acute) G47.00 Macular rash (Acute) R21 fungal infection chest area (Acute) - Plan Plan: labs monitor vitals diet f/up consultants
--- NOTE | 2017-02-02 18:44 | General Progress Note ---
Subjective - Review of Systems Service Date: 02/02/17 Subjective: awake, confused Objective - Results Result Diagrams: 01/31/17 04:33 02/02/17 04:37 Recent Labs: Laboratory Last Values WBC 7.4 Th/cmm (4.8-10.8) D 01/31/17 04:33 RBC 4.43 Mil/cmm (4.30-5.70) 01/31/17 04:33 Hgb 14.9 gm/dL (12-16) 01/31/17 04:33 Hct 43.9 % (41.0-60) 01/31/17 04:33 MCV 99.1 fl (80-99) H 01/31/17 04:33 MCH 33.6 pg (26.0-30.0) H 01/31/17 04:33 MCHC Differential 33.9 pg (28.0-36.0) 01/31/17 04:33 RDW 12.9 % (11.5-20.0) 01/31/17 04:33 Plt Count 91 Th/cmm (150-400) L 01/31/17 04:33 MPV 8.4 fl 01/31/17 04:33 Neutrophils (Manual) 50 % (40-80) 01/30/17 21:36 Lymphocytes 30 % (20-50) 01/30/17 21:36 Monocytes 17 % (2-10) H 01/30/17 21:36 Eosinophils 3 % (0-5) 01/30/17 21:36 Platelet Estimate DECREASED PLATELETS (NORMAL) 01/30/17 21:36 Sodium 125 mEq/L (136-145) L 02/02/17 04:37 Potassium 4.0 mEq/L (3.5-5.1) 02/02/17 04:37 Chloride 93 mEq/L (98-107) L 02/02/17 04:37 Carbon Dioxide 25.1 mEq/L (21.0-31.0) 02/02/17 04:37 Anion Gap 10.9 (7.0-16.0) 02/02/17 04:37 BUN 9 mg/dL (7-25) 02/02/17 04:37 Creatinine 0.7 mg/dL (0.7-1.3) 02/02/17 04:37 Est GFR ( Amer) > 60.0 ml/min (>90) 02/02/17 04:37 Est GFR (Non-Af Amer) > 60.0 ml/min 02/02/17 04:37 BUN/Creatinine Ratio 12.9 02/02/17 04:37 Glucose 81 mg/dL (70-105) 02/02/17 04:37 Uric Acid 2.7 mg/dL (4.4-7.6) L 02/01/17 05:14 Calcium 9.3 mg/dL (8.6-10.3) 02/02/17 04:37 Total Bilirubin 0.6 mg/dL (0.3-1.0) 01/30/17 21:36 AST 31 U/L (13-39) 01/30/17 21:36 ALT 18 U/L (7-52) 01/30/17 21:36 Alkaline Phosphatase 55 U/L (34-104) 01/30/17 21:36 Total Protein 6.7 gm/dL (6.0-8.3) 01/30/17 21:36 Albumin 4.1 gm/dL (4.2-5.5) L 01/30/17 21:36 Globulin 2.6 gm/dL 01/30/17 21:36 Albumin/Globulin Ratio 1.6 (1.0-1.8) 01/30/17 21:36 TSH 2.34 uIU/ml (0.34-5.60) 02/01/17 05:14 Urine Source MIDSTREAM 01/31/17 18:28 Urine Color YELLOW 01/31/17 18:28 Urine Clarity CLEAR (CLEAR) 01/31/17 18:28 Urine pH 6.5 (4.6 - 8.0) 01/31/17 18:28 Ur Specific [place] 1.010 (1.005-1.030) 01/31/17 18:28 Urine Protein NEGATIVE mg/dL (NEGATIVE) 01/31/17 18:28 Urine Glucose (UA) NEGATIVE mg/dL (NEGATIVE) 01/31/17 18:28 Urine Ketones TRACE mg/dL (NEGATIVE) 01/31/17 18:28 Urine Blood TRACE (NEGATIVE) 01/31/17 18:28 Urine Nitrate NEGATIVE (NEGATIVE) 01/31/17 18:28 Urine Bilirubin NEGATIVE (NEGATIVE) 01/31/17 18:28 Urine Urobilinogen 0.2 E.U./dL (0.2 - 1.0) 01/31/17 18:28 Ur Leukocyte Esterase NEGATIVE (NEGATIVE) 01/31/17 18:28 Urine RBC 0-2 /hpf (0-5) H 01/31/17 18:28 Urine WBC NONE SEEN /hpf (0-5) 01/31/17 18:28 Ur Epithelial Cells NONE SEEN /lpf (FEW) 01/31/17 18:28 Urine Bacteria NONE SEEN /hpf (NONE SEEN) 01/31/17 18:28 - Physical Exam Vitals and I&O: Vital Signs Temp 97.2 F 02/02/17 08:00 Pulse 95 02/02/17 08:47 Resp 20 02/02/17 08:00 BP 136/94 02/02/17 08:47 Pulse Ox 95 02/02/17 08:00 Intake & Output 02/01/17 02/02/17 12 18:59 06:59 18:59 Intake Total 2443.749 2939.584 1000 Output Total 1500 2670 Balance 943.749 952.725 8490 Weight (lbs) 97.522 kg 97.704 kg Intake: Intake, IV Amount 654.239 3513.584 1000 Sodium Chloride 0.9% 1, 352.625 6415.584 1000 000 ml @ 125 mls/hr IV . Q8H [facility] Rx#:[id number] Oral 1500 1000 Output: Urine 1500 2670 Other: # Bowel Movements 1 0 Active Medications: Current Medications Acetaminophen (Tylenol) 650 mg PO Q4HR PRN PRN Reason: Pain (Mild) Last Admin: 02/01/17 00:20 Dose: 650 mg Aripiprazole (Abilify) 5 mg PO BID [facility] PRN Reason: Protocol Stop: 04/01/17 08:59 Last Admin: 02/02/17 16:32 Dose: 5 mg Atenolol (Tenormin) 25 mg PO DAILY [facility] Stop: 04/01/17 08:59 Last Admin: 02/02/17 08:47 Dose: 25 mg Benztropine Mesylate (Cogentin) 2 mg PO BID [facility] Stop: 04/01/17 08:59 Last Admin: 02/02/17 16:32 Dose: 2 mg Buspirone HCl (Buspar) 10 mg PO BID [facility] Stop: 04/01/17 08:59 Last Admin: 02/02/17 16:33 Dose: 10 mg Calcium/Vitamin D (Oscal W/Vitamin D) 1 tab PO BID [facility] Stop: 04/01/17 08:59 Last Admin: 02/02/17 16:33 Dose: 1 tab Diphenhydramine HCl (Benadryl) 50 mg PO TID PRN PRN Reason: Itching Stop: 04/01/17 17:31 Divalproex Sodium (Depakote Dr) 500 mg PO BID [facility] PRN Reason: Protocol Stop: 04/01/17 08:59 Last Admin: 02/02/17 16:32 Dose: 500 mg Docusate Sodium (Colace) 100 mg PO BID [facility] Stop: 04/01/17 08:59 Last Admin: 02/02/17 16:33 Dose: 100 mg Sodium Chloride (Nacl 0.9%) 1,000 mls @ 125 mls/hr IV .Q8H [facility] Stop: 04/01/17 00:29 Last Admin: 02/02/17 16:38 Dose: 125 mls/hr Lamotrigine (Lamictal) 25 mg PO Q48HR@0900 [facility] Stop: 04/02/17 15:29 Last Admin: 02/01/17 15:41 Dose: 25 mg Levetiracetam (Keppra) 1,000 mg PO HS [facility] Stop: 04/01/17 20:59 Last Admin: 02/01/17 23:27 Dose: 1,000 mg Levetiracetam (Keppra) 750 mg PO BID [facility] Stop: 04/01/17 08:59 Last Admin: 02/02/17 16:32 Dose: 750 mg Miscellaneous (Vte Chemical Prophylaxis Screen/ Admission) 1 ea PRN PRN PRN Reason: PROTOCOL Stop: 04/01/17 12:24 Pantoprazole Sodium (Protonix) 40 mg PO DAILY [facility] Stop: 04/01/17 08:59 Last Admin: 02/02/17 08:46 Dose: 40 mg Tamsulosin HCl (Flomax) 0.4 mg PO DAILY [facility] Stop: 04/01/17 08:59 Last Admin: 02/02/17 08:46 Dose: 0.4 mg General: Alert, Mild distress HEENT: Atraumatic, PERRLA, EOMI, Mucous membr. moist/pink Neck: Supple, +2 carotid pulse wo bruit Cardiovascular: Regular rate, Normal S1, Normal S2 Lungs: Clear to auscultation Abdomen: Bowel sounds, Soft Extremities: no Edema Neurological: Sensation intact Skin: no Rash Psych/Mental Status: Other (confused) Assessment/Plan - Problem List Patient Problems: All Active Problems Abdominal pain (Acute) R10.9 BPH (benign prostatic hyperplasia) (Acute) N40.0 Bipolar disorder (Acute) Drug allergy (Acute) Z88.9 Epilepsy (Acute) G40.909 GERD (gastroesophageal reflux disease) (Acute) K21.9 HTN (hypertension) (Acute) I10 Hyponatremia (Acute) E87.1 Ileus (Acute) K56.7 Insomnia (Acute) G47.00 Macular rash (Acute) R21 fungal infection chest area (Acute) - Assessment Assessment: 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 Macular rash 2nd drug reaction Abd pain mild ileus Fungal infxn chest area Epilepsy Ess HTN GERD BPH Bipolar Disorder Insomnia - Plan Plan: Lab - Result Diagrams 01/31/17 04:33 02/01/17 05:14 Current Medications Acetaminophen (Tylenol) 650 mg PO Q4HR PRN PRN Reason: Pain (Mild) Last Admin: 02/01/17 00:20 Dose: 650 mg Aripiprazole (Abilify) 5 mg PO BID [facility] PRN Reason: Protocol Stop: 04/01/17 08:59 Atenolol (Tenormin) 25 mg PO DAILY [facility] Stop: 04/01/17 08:59 Last Admin: 02/01/17 10:33 Dose: Not Given Benztropine Mesylate (Cogentin) 2 mg PO BID [facility] Stop: 04/01/17 08:59 Last Admin: 02/01/17 08:56 Dose: 2 mg Buspirone HCl (Buspar) 10 mg PO BID [facility] Stop: 04/01/17 08:59 Calcium/Vitamin D (Oscal W/Vitamin D) 1 tab PO BID [facility] Stop: 04/01/17 08:59 Last Admin: 02/01/17 08:56 Dose: 1 tab Diphenhydramine HCl (Benadryl) 50 mg PO TID PRN PRN Reason: Itching Stop: 02/14/18 17:31 Divalproex Sodium (Depakote Dr) 500 mg PO BID [facility] PRN Reason: Protocol Stop: 04/01/17 08:59 Last Admin: 02/01/17 08:56 Dose: 500 mg Docusate Sodium (Colace) 100 mg PO BID [facility] Stop: 04/01/17 08:59 Last Admin: 02/01/17 08:57 Dose: 100 mg Sodium Chloride (Nacl 0.9%) 1,000 mls @ 125 mls/hr IV .Q8H [facility] Stop: 04/01/17 00:29 Last Infusion: 02/01/17 14:34 Dose: 125 mls/hr Levetiracetam (Keppra) 1,000 mg PO HS [facility] Stop: 04/01/17 20:59 Last Admin: 01/31/17 21:12 Dose: 1,000 mg Levetiracetam (Keppra) 750 mg PO BID [facility] Stop: 04/01/17 08:59 Last Admin: 02/01/17 08:57 Dose: 750 mg Miscellaneous ([employer] Prophylaxis Screen/ Admission) 1 ea [facility] PRN PRN PRN Reason: PROTOCOL Stop: 04/01/17 12:24 Oxcarbazepine (Trileptal) 600 mg PO BID [facility] PRN Reason: Protocol Stop: 04/01/17 08:59 Last Admin: 02/01/17 08:57 Dose: 600 mg Pantoprazole Sodium (Protonix) 40 mg PO DAILY [facility] Stop: 04/01/17 08:59 Last Admin: 02/01/17 08:57 Dose: 40 mg Tamsulosin HCl (Flomax) 0.4 mg PO DAILY [facility] Stop: 04/01/17 08:59 Last Admin: 02/01/17 08:56 Dose: 0.4 mg Lab - Result Diagrams 01/31/17 04:33 02/02/17 04:37 Na improved @ 122 even w/ NS Fluoxitene dc'ed already will also dc Trileptal switch to Lamictal f/u electrolytes
[2017-02-03] MEDS: Sodium Chloride 0.9% 1,000 ML IV SCH ×2 (01:05→08:48)
[2017-02-03 05:58] LABS: ANION GAP 8.2 (7.0-16.0); BUN - UREA NITROGEN 12 mg/dL (7-25); CALCIUM SERUM 9.2 mg/dL (8.6-10.3); CARBON DIOXIDE 24.7 mEq/L (21.0-31.0); CHLORIDE 95 mEq/L (98-107); CREATININE - SERUM 0.8 mg/dL (0.7-1.3); GFR AFRICAN-AMERICAN > 60.0 ml/min (>90); GFR NON AFRICAN-AMERICAN > 60.0 ml/min; GLUCOSE 76 mg/dL (70-105); POTASSIUM SERUM 3.9 mEq/L (3.5-5.1); SODIUM SERUM 124 mEq/L (136-145)
[2017-02-03] MEDS: Calcium Carb/Vit D 500 mg/200 U Tab PO SCH ×2 (08:48→16:31)
[2017-02-03] MEDS: Benztropine 1 MG TAB PO SCH ×2 (08:49→16:31)
[2017-02-03] MEDS: Pantoprazole 40 mg EC Tab PO SCH (08:50)
--- NOTE | 2017-02-03 12:39 | Internal Medicine Prog Note ---
Internal Medicine Subjective - Subjective Service Date: 02/03/17 Patient seen and examined:: with staff Patient is:: awake, confused Per staff patient has:: no adverse event, tolerating meds Internal Medicine Objective - Results Result Diagrams: 01/31/17 04:33 02/03/17 05:00 Recent Labs: Laboratory Last Values WBC 7.4 Th/cmm (4.8-10.8) D 01/31/17 04:33 RBC 4.43 Mil/cmm (4.30-5.70) 01/31/17 04:33 Hgb 14.9 gm/dL (-16) 01/31/17 04:33 Hct 43.9 % (41.0-60) 01/31/17 04:33 MCV 99.1 fl (80-99) H 01/31/17 04:33 MCH 33.6 pg (26.0-30.0) H 01/31/17 04:33 MCHC Differential 33.9 pg (28.0-36.0) 01/31/17 04:33 RDW 12.9 % (11.5-20.0) 01/31/17 04:33 Plt Count 91 Th/cmm (150-400) L 01/31/17 04:33 MPV 8.4 fl 01/31/17 04:33 Neutrophils (Manual) 50 % (40-80) 01/30/17 21:36 Lymphocytes 30 % (20-50) 01/30/17 21:36 Monocytes 17 % (2-10) H 01/30/17 21:36 Eosinophils 3 % (0-5) 01/30/17 21:36 Platelet Estimate DECREASED PLATELETS (NORMAL) 01/30/17 21:36 Sodium 124 mEq/L (136-145) L 02/03/17 05:00 Potassium 3.9 mEq/L (3.5-5.1) 02/03/17 05:00 Chloride 95 mEq/L (98-107) L 02/03/17 05:00 Carbon Dioxide 24.7 mEq/L (21.0-31.0) 02/03/17 05:00 Anion Gap 8.2 (7.0-16.0) 02/03/17 05:00 BUN 12 mg/dL (7-25) 02/03/17 05:00 Creatinine 0.8 mg/dL (0.7-1.3) 02/03/17 05:00 Est GFR ( Amer) > 60.0 ml/min (>90) 02/03/17 05:00 Est GFR (Non-Af Amer) > 60.0 ml/min 02/03/17 05:00 BUN/Creatinine Ratio 15.0 02/03/17 05:00 Glucose 76 mg/dL (70-105) 02/03/17 05:00 Plasma/Ser Osmolality 253 mOsmol/kg (275-295) L 01/31/17 04:33 Uric Acid 2.7 mg/dL (4.4-7.6) L 02/01/17 05:14 Calcium 9.2 mg/dL (8.6-10.3) 02/03/17 05:00 Total Bilirubin 0.6 mg/dL (0.3-1.0) 01/30/17 21:36 AST 31 U/L (13-39) 01/30/17 21:36 ALT 18 U/L (7-52) 01/30/17 21:36 Alkaline Phosphatase 55 U/L (34-104) 01/30/17 21:36 Total Protein 6.7 gm/dL (6.0-8.3) 01/30/17 21:36 Albumin 4.1 gm/dL (4.2-5.5) L 01/30/17 21:36 Globulin 2.6 gm/dL 01/30/17 21:36 Albumin/Globulin Ratio 1.6 (1.0-1.8) 01/30/17 21:36 TSH 2.34 uIU/ml (0.34-5.60) 02/01/17 05:14 Urine Source MIDSTREAM 01/31/17 18:28 Urine Color YELLOW 01/31/17 18:28 Urine Clarity CLEAR (CLEAR) 01/31/17 18:28 Urine pH 6.5 (4.6 - 8.0) 01/31/17 18:28 Ur Specific [place] 1.010 (1.005-1.030) 01/31/17 18:28 Urine Protein NEGATIVE mg/dL (NEGATIVE) 01/31/17 18:28 Urine Glucose (UA) NEGATIVE mg/dL (NEGATIVE) 01/31/17 18:28 Urine Ketones TRACE mg/dL (NEGATIVE) 01/31/17 18:28 Urine Blood TRACE (NEGATIVE) 01/31/17 18:28 Urine Nitrate NEGATIVE (NEGATIVE) 01/31/17 18:28 Urine Bilirubin NEGATIVE (NEGATIVE) 01/31/17 18:28 Urine Urobilinogen 0.2 E.U./dL (0.2 - 1.0) 01/31/17 18:28 Ur Leukocyte Esterase NEGATIVE (NEGATIVE) 01/31/17 18:28 Urine RBC 0-2 /hpf (0-5) H 01/31/17 18:28 Urine WBC NONE SEEN /hpf (0-5) 01/31/17 18:28 Ur Epithelial Cells NONE SEEN /lpf (FEW) 01/31/17 18:28 Urine Bacteria NONE SEEN /hpf (NONE SEEN) 01/31/17 18:28 - Physical Exam Vitals and I&O: Vital Signs Temp 97.8 F 02/03/17 11:55 Pulse 72 02/03/17 11:55 Resp 18 02/03/17 11:55 BP 143/83 02/03/17 11:55 Pulse Ox 97 02/03/17 11:55 Intake & Output 02/02/17 02/03/17 02/03/17 18:59 06:59 18:59 Intake Total 1000 2293.75 320.833 Output Total 2775 Balance 1000 -481.25 320.833 Weight (lbs) 212 lb 8 oz Intake: Intake, IV Amount 1000 1643.75 320.833 Sodium Chloride 0.9% 1, 1000 1643.75 320.833 000 ml @ 125 mls/hr IV . Q8H [facility] Rx#:[id number] Oral 650 Output: Urine 2775 Other: # Voids 4 Active Medications: Current Medications Acetaminophen (Tylenol) 650 mg PO Q4HR PRN PRN Reason: Pain (Mild) Last Admin: 02/01/17 00:20 Dose: 650 mg Aripiprazole (Abilify) 5 mg PO BID [facility] PRN Reason: Protocol Stop: 04/01/17 08:59 Last Admin: 02/03/17 08:50 Dose: 5 mg Atenolol (Tenormin) 25 mg PO DAILY [facility] Stop: 04/01/17 08:59 Last Admin: 02/03/17 08:48 Dose: 25 mg Benztropine Mesylate (Cogentin) 2 mg PO BID [facility] Stop: 04/01/17 08:59 Last Admin: 02/03/17 08:49 Dose: 2 mg Betamethasone/Clotrimazole (Lotrisone Cream) 1 appl TP BID [facility] Stop: 04/04/17 16:59 Buspirone HCl (Buspar) 10 mg PO BID [facility] Stop: 04/01/17 08:59 Last Admin: 02/03/17 08:49 Dose: 10 mg Calcium/Vitamin D (Oscal W/Vitamin D) 1 tab PO BID [facility] Stop: 04/01/17 08:59 Last Admin: 02/03/17 08:48 Dose: 1 tab Diphenhydramine HCl (Benadryl) 50 mg PO TID PRN PRN Reason: Itching Stop: 04/01/17 17:31 Divalproex Sodium (Depakote Dr) 500 mg PO BID [facility] PRN Reason: Protocol Stop: 04/01/17 08:59 Last Admin: 02/03/17 08:50 Dose: 500 mg Docusate Sodium (Colace) 100 mg PO BID [facility] Stop: 04/01/17 08:59 Last Admin: 02/03/17 08:50 Dose: 100 mg Sodium Chloride (Nacl 0.9%) 1,000 mls @ 125 mls/hr IV .Q8H [facility] Stop: 04/01/17 00:29 Last Admin: 02/03/17 08:48 Dose: 125 mls/hr Ceftriaxone Sodium 1 gm/ (Dextrose) 50 mls @ 100 mls/hr IV Q24H [facility] Stop: 04/04/17 10:59 Last Admin: 02/03/17 12:23 Dose: 100 mls/hr Lactic Acid (Lac-Hydrin Cream) 1 appl TP BID [facility] Stop: 04/04/17 16:59 Lamotrigine (Lamictal) 25 mg PO Q48HR@0900 [facility] Stop: 04/02/17 15:29 Last Admin: 02/03/17 08:48 Dose: 25 mg Levetiracetam (Keppra) 1,000 mg PO HS [facility] Stop: 04/01/17 20:59 Last Admin: 02/02/17 21:42 Dose: 1,000 mg Levetiracetam (Keppra) 750 mg PO BID [facility] Stop: 04/01/17 08:59 Last Admin: 02/03/17 08:48 Dose: 750 mg Miscellaneous (Vte Chemical Prophylaxis Screen/ Admission) 1 ea PRN PRN PRN Reason: PROTOCOL Stop: 04/01/17 12:24 Pantoprazole Sodium (Protonix) 40 mg PO DAILY [facility] Stop: 04/01/17 08:59 Last Admin: 02/03/17 08:50 Dose: 40 mg Tamsulosin HCl (Flomax) 0.4 mg PO DAILY [facility] Stop: 04/01/17 08:59 Last Admin: 02/03/17 08:48 Dose: 0.4 mg General: weak HEENT: NC/AT, PERRLA Neck: Supple Lungs: CTAB Cardiovascular: RRR, Normal S1, Normal S2 Abdomen: soft, non-tender, non-distended, positive bowel sound Extremities: excoriation Neurological: no change Internal Medicine Assmt/Plan - Assessment Assessment: Abdominal pain (Acute) R10.9 BPH (benign prostatic hyperplasia) (Acute) N40.0 Bipolar disorder (Acute) Drug allergy (Acute) Z88.9 Epilepsy (Acute) G40.909 GERD (gastroesophageal reflux disease) (Acute) K21.9 HTN (hypertension) (Acute) I10 Hyponatremia (Acute) E87.1 Ileus (Acute) K56.7 Insomnia (Acute) G47.00 Macular rash (Acute) R21 fungal infection chest area (Acute) - Plan Plan: follow up labs in am contact isolation continue current orders
--- NOTE | 2017-02-03 15:01 | Consultation ---
DATE OF CONSULTATION: 02/03/2017 REFERRING PHYSICIAN: Dr. Franz. REASON FOR CONSULTATION: Rash, cellulitis of left leg. HISTORY OF PRESENT ILLNESS: The patient is a 61-year-old male with a past medical history of hypertension, seizure disorder, GERD, BPH, insomnia, bipolar disorder, brought in to the hospital for abdominal pain and constipation. On further evaluation, the patient was found to have fungal rash under the breast, worse on the right side and redness of the left lower extremity with dry skin. ID consult was called for further evaluation and management. On initial evaluation, the patient's temperature was 97.1 degree Fahrenheit and WBC count was 7400. PAST MEDICAL HISTORY: As mentioned above, bipolar disorder, seizure disorder, hypertension, GERD, BPH, insomnia. ALLERGIES: NKDA. MEDICATIONS: As per medication reconciliation sheet. No antibiotic at this time. REVIEW OF SYSTEMS: GENERAL: The patient has no fever, no chills. HEENT: No diplopia, no photophobia, no sore throat. RESPIRATORY: No cough, no shortness of breath. CARDIOVASCULAR: No chest pain or palpitation. GASTROINTESTINAL: No nausea, no vomiting, no diarrhea, no constipation. GENITOURINARY: No dysuria. NEUROLOGIC: No headache, no dizziness. No focal weakness. SKIN: The patient has rash under lower chest bilaterally. The patient also has some redness and dry skin of the left leg. There is no swelling. The patient has some itchiness of both hands dorsal aspect. PHYSICAL EXAMINATION: VITAL SIGNS: Shows temperature is 97.4 degrees Fahrenheit, pulse 68, respirations 18, blood pressure 163/92. GENERAL: The patient is comfortable lying in the bed, not in acute distress. HEENT: Head is normocephalic, atraumatic. Oral mucosa moist, pink tongue. Eyes: Pallor is present, no icterus. PERRLA, EOMI. NECK: Supple, no JVD, no carotid bruit. Trachea in midline. CHEST: Bilateral breath sounds. No crackles or wheezing. HEART: S1, S2 within normal limit. Regular rhythm. No murmur, no gallop. ABDOMEN: Soft, nontender, nondistended. Bowel sounds present. EXTREMITIES: No cyanosis, no clubbing, no edema. NEUROLOGIC: Alert, awake ____ as well. Confused. LABORATORY DATA: Current lab shows WBC count is 7400, hemoglobin 14.9, hematocrit 43, platelets are 91,000. Sodium 124, potassium 3.9, chloride 95, bicarbonate is 24.7 and BUN is 12, creatinine 0.8, glucose is 76. Urinalysis shows negative nitrite, negative leukoesterase. WBCs none. Bacteria none. There is RBC 0-2. IMPRESSION: 1. Cellulitis of left leg. 2. Tinea corporis. 3. Hematuria. 4. Hypertension. 5. Bipolar disorder. 6. Seizure disorder. 7. Benign prostatic hypertrophy. 8. Dry skin dermatitis. RECOMMENDATIONS: 1. We will provide some moisturizer cream A and D or Lac-Hydrin. 2. For the cellulitis of left leg, we will provide Rocephin, which can be changed to Keflex to complete 10 days of therapy and give Lotrisone twice a day apply topically to lower chest. Thank you Dr. Franz for involving me in taking care of this patient. JOB# [id number]
[2017-02-03] MEDS: Betamethasone/Clotrimazole Cream 15 gm Tube TP SCH (16:38)
[2017-02-03] MEDS: Ammonium Lactate Cream 140 gm Tube TP SCH (16:38)
[2017-02-04 06:38] LABS: ANION GAP 13.4 (7.0-16.0); BUN - UREA NITROGEN 14 mg/dL (7-25); CALCIUM SERUM 9.7 mg/dL (8.6-10.3); CARBON DIOXIDE 23.6 mEq/L (21.0-31.0); CHLORIDE 92 mEq/L (98-107); CREATININE - SERUM 0.8 mg/dL (0.7-1.3); GFR AFRICAN-AMERICAN > 60.0 ml/min (>90); GFR NON AFRICAN-AMERICAN > 60.0 ml/min; GLUCOSE 78 mg/dL (70-105); SODIUM SERUM 125 mEq/L (136-145)
[2017-02-04] MEDS: Ammonium Lactate Cream 140 gm Tube TP SCH ×2 (08:19→16:23)
[2017-02-04] MEDS: Benztropine 1 MG TAB PO SCH ×2 (08:19→16:23)
[2017-02-04] MEDS: Betamethasone/Clotrimazole Cream 15 gm Tube TP SCH ×2 (08:19→16:24)
[2017-02-04] MEDS: Calcium Carb/Vit D 500 mg/200 U Tab PO SCH ×2 (08:20→16:23)
[2017-02-04] MEDS: Pantoprazole 40 mg EC Tab PO SCH (08:22)
--- NOTE | 2017-02-04 08:45 | Infectious Disease Prog Note ---
Infectious Disease Subjective - Review of Systems Service Date: 02/04/17 Subjective: There is no new change, there is no fever. Infectious Disease Objective - Results Result Diagrams: 01/31/17 04:33 02/04/17 06:00 Recent Labs: Laboratory Last Values WBC 7.4 Th/cmm (4.8-10.8) D 01/31/17 04:33 RBC 4.43 Mil/cmm (4.30-5.70) 01/31/17 04:33 Hgb 14.9 gm/dL (12-16) 01/31/17 04:33 Hct 43.9 % (41.0-60) 01/31/17 04:33 MCV 99.1 fl (80-99) H 01/31/17 04:33 MCH 33.6 pg (26.0-30.0) H 01/31/17 04:33 MCHC Differential 33.9 pg (28.0-36.0) 01/31/17 04:33 RDW 12.9 % (11.5-20.0) 01/31/17 04:33 Plt Count 91 Th/cmm (150-400) L 01/31/17 04:33 MPV 8.4 fl 01/31/17 04:33 Neutrophils (Manual) 50 % (40-80) 01/30/17 21:36 Lymphocytes 30 % (20-50) 01/30/17 21:36 Monocytes 17 % (2-10) H 01/30/17 21:36 Eosinophils 3 % (0-5) 01/30/17 21:36 Platelet Estimate DECREASED PLATELETS (NORMAL) 01/30/17 21:36 Sodium 125 mEq/L (136-145) L 02/04/17 06:00 Potassium 4.0 mEq/L (3.5-5.1) 02/04/17 06:00 Chloride 92 mEq/L (98-107) L 02/04/17 06:00 Carbon Dioxide 23.6 mEq/L (21.0-31.0) 02/04/17 06:00 Anion Gap 13.4 (7.0-16.0) 02/04/17 06:00 BUN 14 mg/dL (7-25) 02/04/17 06:00 Creatinine 0.8 mg/dL (0.7-1.3) 02/04/17 06:00 Est GFR ( Amer) > 60.0 ml/min (>90) 02/04/17 06:00 Est GFR (Non-Af Amer) > 60.0 ml/min 02/04/17 06:00 BUN/Creatinine Ratio 17.5 02/04/17 06:00 Glucose 78 mg/dL (70-105) 02/04/17 06:00 Plasma/Ser Osmolality 253 mOsmol/kg (275-295) L 01/31/17 04:33 Uric Acid 2.7 mg/dL (4.4-7.6) L 02/01/17 05:14 Calcium 9.7 mg/dL (8.6-10.3) 02/04/17 06:00 Total Bilirubin 0.6 mg/dL (0.3-1.0) 01/30/17 21:36 AST 31 U/L (13-39) 01/30/17 21:36 ALT 18 U/L (7-52) 01/30/17 21:36 Alkaline Phosphatase 55 U/L (34-104) 01/30/17 21:36 Total Protein 6.7 gm/dL (6.0-8.3) 01/30/17 21:36 Albumin 4.1 gm/dL (4.2-5.5) L 01/30/17 21:36 Globulin 2.6 gm/dL 01/30/17 21:36 Albumin/Globulin Ratio 1.6 (1.0-1.8) 01/30/17 21:36 TSH 2.34 uIU/ml (0.34-5.60) 02/01/17 05:14 Urine Source MIDSTREAM 01/31/17 18:28 Urine Color YELLOW 01/31/17 18:28 Urine Clarity CLEAR (CLEAR) 01/31/17 18:28 Urine pH 6.5 (4.6 - 8.0) 01/31/17 18:28 Ur Specific [place] 1.010 (1.005-1.030) 01/31/17 18:28 Urine Protein NEGATIVE mg/dL (NEGATIVE) 01/31/17 18:28 Urine Glucose (UA) NEGATIVE mg/dL (NEGATIVE) 01/31/17 18:28 Urine Ketones TRACE mg/dL (NEGATIVE) 01/31/17 18:28 Urine Blood TRACE (NEGATIVE) 01/31/17 18:28 Urine Nitrate NEGATIVE (NEGATIVE) 01/31/17 18:28 Urine Bilirubin NEGATIVE (NEGATIVE) 01/31/17 18:28 Urine Urobilinogen 0.2 E.U./dL (0.2 - 1.0) 01/31/17 18:28 Ur Leukocyte Esterase NEGATIVE (NEGATIVE) 01/31/17 18:28 Urine RBC 0-2 /hpf (0-5) H 01/31/17 18:28 Urine WBC NONE SEEN /hpf (0-5) 01/31/17 18:28 Ur Epithelial Cells NONE SEEN /lpf (FEW) 01/31/17 18:28 Urine Bacteria NONE SEEN /hpf (NONE SEEN) 01/31/17 18:28 - Physical Exam Vitals and I&O: Vital Signs Temp 98.5 F 02/04/17 04:00 Pulse 80 02/04/17 08:22 Resp 18 02/04/17 04:00 BP 152/86 02/04/17 08:22 Pulse Ox 99 02/04/17 04:00 Intake & Output 02/03/17 02/04/17 02/04/17 18:59 06:59 18:59 Intake Total 185.171 0639 Output Total 700 Balance 370.833 300 Weight (lbs) 93.44 kg Intake: Intake, IV Amount 456.173 4697 Sodium Chloride 0.9% 1, 320.833 000 ml @ 125 mls/hr IV . Q8H [facility] Rx#:[id number] cefTRIAXone 1 gm In 50 Dextrose 5% 50 ml @ 100 mls/hr IV Q24H [facility] Rx#: [id number] Output: Urine 700 Active Medications: Current Medications Acetaminophen (Tylenol) 650 mg PO Q4HR PRN PRN Reason: Pain (Mild) Last Admin: 02/01/17 00:20 Dose: 650 mg Aripiprazole (Abilify) 5 mg PO BID [facility] PRN Reason: Protocol Stop: 04/01/17 08:59 Last Admin: 02/04/17 08:20 Dose: 5 mg Atenolol (Tenormin) 25 mg PO DAILY [facility] Stop: 04/01/17 08:59 Last Admin: 02/04/17 08:22 Dose: 25 mg Benztropine Mesylate (Cogentin) 2 mg PO BID [facility] Stop: 04/01/17 08:59 Last Admin: 02/04/17 08:19 Dose: 2 mg Betamethasone/Clotrimazole (Lotrisone Cream) 1 appl TP BID [facility] Stop: 04/04/17 16:59 Last Admin: 02/04/17 08:19 Dose: 1 appl Buspirone HCl (Buspar) 10 mg PO BID [facility] Stop: 04/01/17 08:59 Last Admin: 02/04/17 08:19 Dose: 10 mg Calcium/Vitamin D (Oscal W/Vitamin D) 1 tab PO BID [facility] Stop: 04/01/17 08:59 Last Admin: 02/04/17 08:20 Dose: 1 tab Diphenhydramine HCl (Benadryl) 50 mg PO TID PRN PRN Reason: Itching Stop: 04/01/17 17:31 Divalproex Sodium (Depakote Dr) 500 mg PO BID [facility] PRN Reason: Protocol Stop: 04/01/17 08:59 Last Admin: 02/04/17 08:20 Dose: 500 mg Docusate Sodium (Colace) 100 mg PO BID [facility] Stop: 04/01/17 08:59 Last Admin: 02/04/17 08:21 Dose: 100 mg Furosemide (Lasix) 20 mg IVP DAILY [facility] Stop: 04/04/17 20:14 Last Admin: 02/04/17 08:22 Dose: 20 mg Ceftriaxone Sodium 1 gm/ (Dextrose) 50 mls @ 100 mls/hr IV Q24H [facility] Stop: 04/04/17 10:59 Last Infusion: 02/03/17 12:54 Dose: Infused Lactic Acid (Lac-Hydrin Cream) 1 appl TP BID [facility] Stop: 04/04/17 16:59 Last Admin: 02/04/17 08:19 Dose: 1 appl Lamotrigine (Lamictal) 25 mg PO Q48HR@0900 [facility] Stop: 04/02/17 15:29 Last Admin: 02/03/17 08:48 Dose: 25 mg Levetiracetam (Keppra) 1,000 mg PO HS [facility] Stop: 04/01/17 20:59 Last Admin: 02/03/17 20:50 Dose: 1,000 mg Levetiracetam (Keppra) 750 mg PO BID [facility] Stop: 04/01/17 08:59 Last Admin: 02/04/17 08:20 Dose: 750 mg Miscellaneous (Vte Chemical Prophylaxis Screen/ Admission) 1 [facility] PRN PRN PRN Reason: PROTOCOL Stop: 04/01/17 12:24 Pantoprazole Sodium (Protonix) 40 mg PO DAILY [facility] Stop: 04/01/17 08:59 Last Admin: 02/04/17 08:22 Dose: 40 mg Sodium Chloride (Nacl Tab) 1 gm PO BID [facility] Stop: 04/04/17 20:14 Last Admin: 02/04/17 08:20 Dose: 1 gm Tamsulosin HCl (Flomax) 0.4 mg PO DAILY [facility] Stop: 04/01/17 08:59 Last Admin: 02/04/17 08:20 Dose: 0.4 mg General: no acute distress, well developed, well nourished HEENT: atraumatic, normocephalic, PERRLA Neck: supple, no thyromegaly Cardiovascular: S1S2, regular Lungs: clear to auscultation bilaterally, clear to percussion Abdomen: soft, no tender, no distended, no mass, no rebound, no hepatomegaly Extremities: no cyanosis, no clubbing, no edema Neurological: awake, alert, oriented Infectious Disease Assmt/Plan - Problem List Patient Problems: All Active Problems Abdominal pain (Acute) R10.9 BPH (benign prostatic hyperplasia) (Acute) N40.0 Bipolar disorder (Acute) Drug allergy (Acute) Z88.9 Epilepsy (Acute) G40.909 GERD (gastroesophageal reflux disease) (Acute) K21.9 HTN (hypertension) (Acute) I10 Hyponatremia (Acute) E87.1 Ileus (Acute) K56.7 Insomnia (Acute) G47.00 Macular rash (Acute) R21 fungal infection chest area (Acute) - Assessment Assessment: 1. Cellulitis of the left leg. 2. Tinea corporis. 3. Hematuria. 4. BPH. 5. Bipolar disorder. 6. HTN. 7. Dry skin dermatitis. - Plan Plan: Will change antibiotics to keflex. renal US arterial us.
--- NOTE | 2017-02-04 14:59 | Diagnostic Imaging Report ---
Renal ultrasound HISTORY: Hematuria The right kidney is somewhat decreased in size (8.4 x 4.7 x 6.5 cm). No focal lesions. No hydronephrosis. The left kidney is normal in size (10.8 x 6.0 x 6.8 cm). No focal lesions. Hydronephrosis. No intraluminal abnormality seen within the urinary bladder. IMPRESSION: 1. Decreased size of the right kidney 2. No other significant abnormalities
--- NOTE | 2017-02-04 15:00 | Diagnostic Imaging Report ---
Left lower extremity Doppler arterial ultrasound exam HISTORY: Peripheral vascular disease, pain Sonographic sector images were obtained through the arterial system of the left leg. Associated Doppler data was obtained. The exam demonstrates normal triphasic waveforms within the common femoral, superficial femoral, popliteal, anterior tibial, posterior tibial, and dorsalis pedis arteries. Slight increase in velocity noted within the left posterior tibial artery. The left ankle-brachial index is normal (0.98). Sonographic images demonstrate mild diffuse atherosclerotic plaque. IMPRESSION: 1. Mild diffuse atherosclerotic changes. No significant focal narrowing or stenosis.
--- NOTE | 2017-02-04 16:07 | General Progress Note ---
Subjective - Review of Systems Events since last encounter: no change no fever in no acute distress Objective - Results Result Diagrams: 01/31/17 04:33 02/04/17 06:00 Recent Labs: Laboratory Last Values WBC 7.4 Th/cmm (4.8-10.8) D 01/31/17 04:33 RBC 4.43 Mil/cmm (4.30-5.70) 01/31/17 04:33 Hgb 14.9 gm/dL (12-16) 01/31/17 04:33 Hct 43.9 % (41.0-60) 01/31/17 04:33 MCV 99.1 fl (80-99) H 01/31/17 04:33 MCH 33.6 pg (26.0-30.0) H 01/31/17 04:33 MCHC Differential 33.9 pg (28.0-36.0) 01/31/17 04:33 RDW 12.9 % (11.5-20.0) 01/31/17 04:33 Plt Count 91 Th/cmm (150-400) L 01/31/17 04:33 MPV 8.4 fl 01/31/17 04:33 Neutrophils (Manual) 50 % (40-80) 01/30/17 21:36 Lymphocytes 30 % (20-50) 01/30/17 21:36 Monocytes 17 % (2-10) H 01/30/17 21:36 Eosinophils 3 % (0-5) 01/30/17 21:36 Platelet Estimate DECREASED PLATELETS (NORMAL) 01/30/17 21:36 Sodium 125 mEq/L (136-145) L 02/04/17 06:00 Potassium 4.0 mEq/L (3.5-5.1) 02/04/17 06:00 Chloride 92 mEq/L (98-107) L 02/04/17 06:00 Carbon Dioxide 23.6 mEq/L (21.0-31.0) 02/04/17 06:00 Anion Gap 13.4 (7.0-16.0) 02/04/17 06:00 BUN 14 mg/dL (7-25) 02/04/17 06:00 Creatinine 0.8 mg/dL (0.7-1.3) 02/04/17 06:00 Est GFR ( Amer) > 60.0 ml/min (>90) 02/04/17 06:00 Est GFR (Non-Af Amer) > 60.0 ml/min 02/04/17 06:00 BUN/Creatinine Ratio 17.5 02/04/17 06:00 Glucose 78 mg/dL (70-105) 02/04/17 06:00 Plasma/Ser Osmolality 253 mOsmol/kg (275-295) L 01/31/17 04:33 Uric Acid 2.7 mg/dL (4.4-7.6) L 02/01/17 05:14 Calcium 9.7 mg/dL (8.6-10.3) 02/04/17 06:00 Total Bilirubin 0.6 mg/dL (0.3-1.0) 01/30/17 21:36 AST 31 U/L (13-39) 01/30/17 21:36 ALT 18 U/L (7-52) 01/30/17 21:36 Alkaline Phosphatase 55 U/L (34-104) 01/30/17 21:36 Total Protein 6.7 gm/dL (6.0-8.3) 01/30/17 21:36 Albumin 4.1 gm/dL (4.2-5.5) L 01/30/17 21:36 Globulin 2.6 gm/dL 01/30/17 21:36 Albumin/Globulin Ratio 1.6 (1.0-1.8) 01/30/17 21:36 TSH 2.34 uIU/ml (0.34-5.60) 02/01/17 05:14 Urine Source MIDSTREAM 01/31/17 18:28 Urine Color YELLOW 01/31/17 18:28 Urine Clarity CLEAR (CLEAR) 01/31/17 18:28 Urine pH 6.5 (4.6 - 8.0) 01/31/17 18:28 Ur Specific [place] 1.010 (1.005-1.030) 01/31/17 18:28 Urine Protein NEGATIVE mg/dL (NEGATIVE) 01/31/17 18:28 Urine Glucose (UA) NEGATIVE mg/dL (NEGATIVE) 01/31/17 18:28 Urine Ketones TRACE mg/dL (NEGATIVE) 01/31/17 18:28 Urine Blood TRACE (NEGATIVE) 01/31/17 18:28 Urine Nitrate NEGATIVE (NEGATIVE) 01/31/17 18:28 Urine Bilirubin NEGATIVE (NEGATIVE) 01/31/17 18:28 Urine Urobilinogen 0.2 E.U./dL (0.2 - 1.0) 01/31/17 18:28 Ur Leukocyte Esterase NEGATIVE (NEGATIVE) 01/31/17 18:28 Urine RBC 0-2 /hpf (0-5) H 01/31/17 18:28 Urine WBC NONE SEEN /hpf (0-5) 01/31/17 18:28 Ur Epithelial Cells NONE SEEN /lpf (FEW) 01/31/17 18:28 Urine Bacteria NONE SEEN /hpf (NONE SEEN) 01/31/17 18:28 - Physical Exam Vitals and I&O: Vital Signs Temp 97.6 F 02/04/17 12:00 Pulse 72 02/04/17 12:00 Resp 17 02/04/17 12:00 BP 116/72 02/04/17 12:00 Pulse Ox 97 02/04/17 12:00 Intake & Output 02/03/17 02/04/17 02/04/17 18:59 06:59 18:59 Intake Total 188.386 5252 Output Total 700 Balance 370.833 300 Weight (lbs) 93.44 kg Intake: Intake, IV Amount 327.925 1837 Sodium Chloride 0.9% 1, 320.833 000 ml @ 125 mls/hr IV . Q8H [facility] Rx#:[id number] cefTRIAXone 1 gm In 50 Dextrose 5% 50 ml @ 100 mls/hr IV Q24H [facility] Rx#: [id number] Output: Urine 700 Active Medications: Current Medications Acetaminophen (Tylenol) 650 mg PO Q4HR PRN PRN Reason: Pain (Mild) Last Admin: 02/01/17 00:20 Dose: 650 mg Aripiprazole (Abilify) 5 mg PO BID [facility] PRN Reason: Protocol Stop: 04/01/17 08:59 Last Admin: 02/04/17 08:20 Dose: 5 mg Atenolol (Tenormin) 25 mg PO DAILY [facility] Stop: 04/01/17 08:59 Last Admin: 02/04/17 08:22 Dose: 25 mg Benztropine Mesylate (Cogentin) 2 mg PO BID [facility] Stop: 04/01/17 08:59 Last Admin: 02/04/17 08:19 Dose: 2 mg Betamethasone/Clotrimazole (Lotrisone Cream) 1 appl TP BID [facility] Stop: 04/04/17 16:59 Last Admin: 02/04/17 08:19 Dose: 1 appl Buspirone HCl (Buspar) 10 mg PO BID [facility] Stop: 04/01/17 08:59 Last Admin: 02/04/17 08:19 Dose: 10 mg Calcium/Vitamin D (Oscal W/Vitamin D) 1 tab PO BID [facility] Stop: 04/01/17 08:59 Last Admin: 02/04/17 08:20 Dose: 1 tab Diphenhydramine HCl (Benadryl) 50 mg PO TID PRN PRN Reason: Itching Stop: 04/01/17 17:31 Divalproex Sodium (Depakote Dr) 500 mg PO BID [facility] PRN Reason: Protocol Stop: 04/01/17 08:59 Last Admin: 02/04/17 08:20 Dose: 500 mg Docusate Sodium (Colace) 100 mg PO BID [facility] Stop: 04/01/17 08:59 Last Admin: 02/04/17 08:21 Dose: 100 mg Furosemide (Lasix) 20 mg IVP DAILY [facility] Stop: 04/04/17 20:14 Last Admin: 02/04/17 08:22 Dose: 20 mg Ceftriaxone Sodium 1 gm/ (Dextrose) 50 mls @ 100 mls/hr IV Q24H [facility] Stop: 04/04/17 10:59 Last Admin: 02/04/17 11:24 Dose: 100 mls/hr Lactic Acid (Lac-Hydrin Cream) 1 appl TP BID [facility] Stop: 04/04/17 16:59 Last Admin: 02/04/17 08:19 Dose: 1 appl Lamotrigine (Lamictal) 25 mg PO Q48HR@0900 [facility] Stop: 04/02/17 15:29 Last Admin: 02/03/17 08:48 Dose: 25 mg Levetiracetam (Keppra) 1,000 mg PO HS [facility] Stop: 04/01/17 20:59 Last Admin: 02/03/17 20:50 Dose: 1,000 mg Levetiracetam (Keppra) 750 mg PO BID [facility] Stop: 04/01/17 08:59 Last Admin: 02/04/17 08:20 Dose: 750 mg Miscellaneous (Vte Chemical Prophylaxis Screen/ Admission) 1 ea PRN PRN PRN Reason: PROTOCOL Stop: 04/01/17 12:24 Pantoprazole Sodium (Protonix) 40 mg PO DAILY [facility] Stop: 04/01/17 08:59 Last Admin: 02/04/17 08:22 Dose: 40 mg Sodium Chloride (Nacl Tab) 1 gm PO BID [facility] Stop: 04/04/17 20:14 Last Admin: 02/04/17 08:20 Dose: 1 gm Tamsulosin HCl (Flomax) 0.4 mg PO DAILY [facility] Stop: 04/01/17 08:59 Last Admin: 02/04/17 08:20 Dose: 0.4 mg General: Alert, Mild distress HEENT: Atraumatic, PERRLA, EOMI, Mucous membr. moist/pink Neck: Supple, +2 carotid pulse wo bruit Cardiovascular: Regular rate, Normal S1, Normal S2 Lungs: Clear to auscultation Abdomen: Bowel sounds, Soft Extremities: no Edema Neurological: Sensation intact Skin: no Rash Psych/Mental Status: Other (confused) Assessment/Plan - Problem List Patient Problems: All Active Problems Abdominal pain (Acute) R10.9 BPH (benign prostatic hyperplasia) (Acute) N40.0 Bipolar disorder (Acute) Drug allergy (Acute) Z88.9 Epilepsy (Acute) G40.909 GERD (gastroesophageal reflux disease) (Acute) K21.9 HTN (hypertension) (Acute) I10 Hyponatremia (Acute) E87.1 Ileus (Acute) K56.7 Insomnia (Acute) G47.00 Macular rash (Acute) R21 fungal infection chest area (Acute) - Plan Plan: labs monitor vitals diet f/up consultants
[2017-02-05 06:27] LABS: BUN - UREA NITROGEN 21 mg/dL (7-25); CALCIUM SERUM 9.6 mg/dL (8.6-10.3); CHLORIDE 92 mEq/L (98-107); CREATININE - SERUM 0.9 mg/dL (0.7-1.3); GFR AFRICAN-AMERICAN > 60.0 ml/min (>90); GFR NON AFRICAN-AMERICAN > 60.0 ml/min; GLUCOSE 86 mg/dL (70-105); SODIUM SERUM 123 mEq/L (136-145)
--- NOTE | 2017-02-05 08:52 | Infectious Disease Prog Note ---
Infectious Disease Subjective - Review of Systems Service Date: 02/05/17 Subjective: There is no new change, there is no fever. Infectious Disease Objective - Results Result Diagrams: 01/31/17 04:33 02/05/17 05:23 Recent Labs: Laboratory Last Values WBC 7.4 Th/cmm (4.8-10.8) D 01/31/17 04:33 RBC 4.43 Mil/cmm (4.30-5.70) 01/31/17 04:33 Hgb 14.9 gm/dL (-16) 01/31/17 04:33 Hct 43.9 % (41.0-60) 01/31/17 04:33 MCV 99.1 fl (80-99) H 01/31/17 04:33 MCH 33.6 pg (26.0-30.0) H 01/31/17 04:33 MCHC Differential 33.9 pg (28.0-36.0) 01/31/17 04:33 RDW 12.9 % (11.5-20.0) 01/31/17 04:33 Plt Count 91 Th/cmm (150-400) L 01/31/17 04:33 MPV 8.4 fl 01/31/17 04:33 Neutrophils (Manual) 50 % (40-80) 01/30/17 21:36 Lymphocytes 30 % (20-50) 01/30/17 21:36 Monocytes 17 % (2-10) H 01/30/17 21:36 Eosinophils 3 % (0-5) 01/30/17 21:36 Platelet Estimate DECREASED PLATELETS (NORMAL) 01/30/17 21:36 Sodium 123 mEq/L (136-145) L 02/05/17 05:23 Potassium 4.0 mEq/L (3.5-5.1) 02/05/17 05:23 Chloride 92 mEq/L (98-107) L 02/05/17 05:23 Carbon Dioxide 22.0 mEq/L (21.0-31.0) 02/05/17 05:23 Anion Gap 13.0 (7.0-16.0) 02/05/17 05:23 BUN 21 mg/dL (7-25) 02/05/17 05:23 Creatinine 0.9 mg/dL (0.7-1.3) 02/05/17 05:23 Est GFR ( Amer) > 60.0 ml/min (>90) 02/05/17 05:23 Est GFR (Non-Af Amer) > 60.0 ml/min 02/05/17 05:23 BUN/Creatinine Ratio 23.3 02/05/17 05:23 Glucose 86 mg/dL (70-105) 02/05/17 05:23 Plasma/Ser Osmolality 253 mOsmol/kg (275-295) L 01/31/17 04:33 Uric Acid 2.7 mg/dL (4.4-7.6) L 02/01/17 05:14 Calcium 9.6 mg/dL (8.6-10.3) 02/05/17 05:23 Total Bilirubin 0.6 mg/dL (0.3-1.0) 01/30/17 21:36 AST 31 U/L (13-39) 01/30/17 21:36 ALT 18 U/L (7-52) 01/30/17 21:36 Alkaline Phosphatase 55 U/L (34-104) 01/30/17 21:36 Total Protein 6.7 gm/dL (6.0-8.3) 01/30/17 21:36 Albumin 4.1 gm/dL (4.2-5.5) L 01/30/17 21:36 Globulin 2.6 gm/dL 01/30/17 21:36 Albumin/Globulin Ratio 1.6 (1.0-1.8) 01/30/17 21:36 TSH 2.34 uIU/ml (0.34-5.60) 02/01/17 05:14 Urine Source MIDSTREAM 01/31/17 18:28 Urine Color YELLOW 01/31/17 18:28 Urine Clarity CLEAR (CLEAR) 01/31/17 18:28 Urine pH 6.5 (4.6 - 8.0) 01/31/17 18:28 Ur Specific [place] 1.010 (1.005-1.030) 01/31/17 18:28 Urine Protein NEGATIVE mg/dL (NEGATIVE) 01/31/17 18:28 Urine Glucose (UA) NEGATIVE mg/dL (NEGATIVE) 01/31/17 18:28 Urine Ketones TRACE mg/dL (NEGATIVE) 01/31/17 18:28 Urine Blood TRACE (NEGATIVE) 01/31/17 18:28 Urine Nitrate NEGATIVE (NEGATIVE) 01/31/17 18:28 Urine Bilirubin NEGATIVE (NEGATIVE) 01/31/17 18:28 Urine Urobilinogen 0.2 E.U./dL (0.2 - 1.0) 01/31/17 18:28 Ur Leukocyte Esterase NEGATIVE (NEGATIVE) 01/31/17 18:28 Urine RBC 0-2 /hpf (0-5) H 01/31/17 18:28 Urine WBC NONE SEEN /hpf (0-5) 01/31/17 18:28 Ur Epithelial Cells NONE SEEN /lpf (FEW) 01/31/17 18:28 Urine Bacteria NONE SEEN /hpf (NONE SEEN) 01/31/17 18:28 - Physical Exam Vitals and I&O: Vital Signs Temp 96.8 F 02/05/17 04:00 Pulse 62 02/05/17 04:00 Resp 20 02/05/17 04:00 BP 143/95 02/05/17 04:00 Pulse Ox 96 02/05/17 04:00 Intake & Output 02/04/17 02/05/17 02/05/17 18:59 06:59 18:59 Intake Total 1200 Output Total 1250 Balance -50 Weight (lbs) 93.44 kg 94.755 kg Intake: Intake, IV Amount 50 cefTRIAXone 1 gm In 50 Dextrose 5% 50 ml @ 100 mls/hr IV Q24H [facility] Rx#: [id number] Oral 1150 Output: Urine 1250 Other: # Bowel Movements 0 Active Medications: Current Medications Acetaminophen (Tylenol) 650 mg PO Q4HR PRN PRN Reason: Pain (Mild) Last Admin: 02/01/17 00:20 Dose: 650 mg Aripiprazole (Abilify) 5 mg PO BID [facility] PRN Reason: Protocol Stop: 04/01/17 08:59 Last Admin: 02/04/17 16:23 Dose: 5 mg Atenolol (Tenormin) 25 mg PO DAILY [facility] Stop: 04/01/17 08:59 Last Admin: 02/04/17 08:22 Dose: 25 mg Benztropine Mesylate (Cogentin) 2 mg PO BID [facility] Stop: 04/01/17 08:59 Last Admin: 02/04/17 16:23 Dose: 2 mg Betamethasone/Clotrimazole (Lotrisone Cream) 1 appl TP BID [facility] Stop: 04/04/17 16:59 Last Admin: 02/04/17 16:24 Dose: 1 appl Buspirone HCl (Buspar) 10 mg PO BID [facility] Stop: 04/01/17 08:59 Last Admin: 02/04/17 16:23 Dose: 10 mg Calcium/Vitamin D (Oscal W/Vitamin D) 1 tab PO BID [facility] Stop: 04/01/17 08:59 Last Admin: 02/04/17 16:23 Dose: 1 tab Diphenhydramine HCl (Benadryl) 50 mg PO TID PRN PRN Reason: Itching Stop: 04/01/17 17:31 Divalproex Sodium (Depakote Dr) 500 mg PO BID [facility] PRN Reason: Protocol Stop: 04/01/17 08:59 Last Admin: 02/04/17 16:22 Dose: 500 mg Docusate Sodium (Colace) 100 mg PO BID [facility] Stop: 04/01/17 08:59 Last Admin: 02/04/17 16:23 Dose: 100 mg Furosemide (Lasix) 20 mg IVP DAILY [facility] Stop: 04/04/17 20:14 Last Admin: 02/04/17 08:22 Dose: 20 mg Ceftriaxone Sodium 1 gm/ (Dextrose) 50 mls @ 100 mls/hr IV Q24H [facility] Stop: 04/04/17 10:59 Last Infusion: 02/04/17 18:34 Dose: Infused Lactic Acid (Lac-Hydrin Cream) 1 appl TP BID [facility] Stop: 04/04/17 16:59 Last Admin: 02/04/17 16:23 Dose: 1 appl Lamotrigine (Lamictal) 25 mg PO Q48HR@0900 [facility] Stop: 04/02/17 15:29 Last Admin: 02/03/17 08:48 Dose: 25 mg Levetiracetam (Keppra) 1,000 mg PO HS [facility] Stop: 04/01/17 20:59 Last Admin: 02/04/17 20:25 Dose: 1,000 mg Levetiracetam (Keppra) 750 mg PO BID [facility] Stop: 04/01/17 08:59 Last Admin: 02/04/17 16:22 Dose: 750 mg Miscellaneous (Vte Chemical Prophylaxis Screen/ Admission) 1 ea [facility] PRN PRN PRN Reason: PROTOCOL Stop: 04/01/17 12:24 Pantoprazole Sodium (Protonix) 40 mg PO DAILY [facility] Stop: 04/01/17 08:59 Last Admin: 02/04/17 08:22 Dose: 40 mg Sodium Chloride (Nacl Tab) 1 gm PO BID [facility] Stop: 04/04/17 20:14 Last Admin: 02/04/17 16:22 Dose: 1 gm Tamsulosin HCl (Flomax) 0.4 mg PO DAILY [facility] Stop: 04/01/17 08:59 Last Admin: 02/04/17 08:20 Dose: 0.4 mg General: no acute distress, well developed, well nourished HEENT: atraumatic, normocephalic, PERRLA, EOMI Neck: supple, no thyromegaly Cardiovascular: S1S2, regular Lungs: clear to auscultation bilaterally, clear to percussion Abdomen: soft, no tender, no distended, no mass Extremities: no cyanosis, no clubbing, no edema Skin: intact Infectious Disease Assmt/Plan - Problem List Patient Problems: All Active Problems Abdominal pain (Acute) R10.9 BPH (benign prostatic hyperplasia) (Acute) N40.0 Bipolar disorder (Acute) Drug allergy (Acute) Z88.9 Epilepsy (Acute) G40.909 GERD (gastroesophageal reflux disease) (Acute) K21.9 HTN (hypertension) (Acute) I10 Hyponatremia (Acute) E87.1 Ileus (Acute) K56.7 Insomnia (Acute) G47.00 Macular rash (Acute) R21 fungal infection chest area (Acute) - Assessment Assessment: 1. Cellulitis of the left leg. 2. Tinea corporis. 3. Hematuria. 4. BPH. 5. Bipolar disorder. 6. HTN. 7. Dry skin dermatitis. - Plan Plan: Will change antibiotics to keflex. dc to snf.
[2017-02-05] MEDS: Calcium Carb/Vit D 500 mg/200 U Tab PO SCH (10:36)
[2017-02-05] MEDS: Pantoprazole 40 mg EC Tab PO SCH (10:36)
[2017-02-05] MEDS: Benztropine 1 MG TAB PO SCH (10:37)
[2017-02-05] MEDS: Betamethasone/Clotrimazole Cream 15 gm Tube TP SCH (10:44)
[2017-02-05] MEDS: Ammonium Lactate Cream 140 gm Tube TP SCH (10:44)
[2017-02-05] MEDS ORDERED: Probiotic Screen MC PRN (14:15)
--- NOTE | 2017-02-05 14:29 | General Progress Note ---
Subjective - Review of Systems Service Date: 02/05/17 Subjective: awake, confused Objective - Results Result Diagrams: 01/31/17 04:33 02/05/17 05:23 Recent Labs: Laboratory Last Values WBC 7.4 Th/cmm (4.8-10.8) D 01/31/17 04:33 RBC 4.43 Mil/cmm (4.30-5.70) 01/31/17 04:33 Hgb 14.9 gm/dL (12-16) 01/31/17 04:33 Hct 43.9 % (41.0-60) 01/31/17 04:33 MCV 99.1 fl (80-99) H 01/31/17 04:33 MCH 33.6 pg (26.0-30.0) H 01/31/17 04:33 MCHC Differential 33.9 pg (28.0-36.0) 01/31/17 04:33 RDW 12.9 % (11.5-20.0) 01/31/17 04:33 Plt Count 91 Th/cmm (150-400) L 01/31/17 04:33 MPV 8.4 fl 01/31/17 04:33 Neutrophils (Manual) 50 % (40-80) 01/30/17 21:36 Lymphocytes 30 % (20-50) 01/30/17 21:36 Monocytes 17 % (2-10) H 01/30/17 21:36 Eosinophils 3 % (0-5) 01/30/17 21:36 Platelet Estimate DECREASED PLATELETS (NORMAL) 01/30/17 21:36 Sodium 123 mEq/L (136-145) L 02/05/17 05:23 Potassium 4.0 mEq/L (3.5-5.1) 02/05/17 05:23 Chloride 92 mEq/L (98-107) L 02/05/17 05:23 Carbon Dioxide 22.0 mEq/L (21.0-31.0) 02/05/17 05:23 Anion Gap 13.0 (7.0-16.0) 02/05/17 05:23 BUN 21 mg/dL (7-25) 02/05/17 05:23 Creatinine 0.9 mg/dL (0.7-1.3) 02/05/17 05:23 Est GFR ( Amer) > 60.0 ml/min (>90) 02/05/17 05:23 Est GFR (Non-Af Amer) > 60.0 ml/min 02/05/17 05:23 BUN/Creatinine Ratio 23.3 02/05/17 05:23 Glucose 86 mg/dL (70-105) 02/05/17 05:23 Plasma/Ser Osmolality 253 mOsmol/kg (275-295) L 01/31/17 04:33 Uric Acid 2.7 mg/dL (4.4-7.6) L 02/01/17 05:14 Calcium 9.6 mg/dL (8.6-10.3) 02/05/17 05:23 Total Bilirubin 0.6 mg/dL (0.3-1.0) 01/30/17 21:36 AST 31 U/L (13-39) 01/30/17 21:36 ALT 18 U/L (7-52) 01/30/17 21:36 Alkaline Phosphatase 55 U/L (34-104) 01/30/17 21:36 Total Protein 6.7 gm/dL (6.0-8.3) 01/30/17 21:36 Albumin 4.1 gm/dL (4.2-5.5) L 01/30/17 21:36 Globulin 2.6 gm/dL 01/30/17 21:36 Albumin/Globulin Ratio 1.6 (1.0-1.8) 01/30/17 21:36 TSH 2.34 uIU/ml (0.34-5.60) 02/01/17 05:14 Urine Source MIDSTREAM 01/31/17 18:28 Urine Color YELLOW 01/31/17 18:28 Urine Clarity CLEAR (CLEAR) 01/31/17 18:28 Urine pH 6.5 (4.6 - 8.0) 01/31/17 18:28 Ur Specific [place] 1.010 (1.005-1.030) 01/31/17 18:28 Urine Protein NEGATIVE mg/dL (NEGATIVE) 01/31/17 18:28 Urine Glucose (UA) NEGATIVE mg/dL (NEGATIVE) 01/31/17 18:28 Urine Ketones TRACE mg/dL (NEGATIVE) 01/31/17 18:28 Urine Blood TRACE (NEGATIVE) 01/31/17 18:28 Urine Nitrate NEGATIVE (NEGATIVE) 01/31/17 18:28 Urine Bilirubin NEGATIVE (NEGATIVE) 01/31/17 18:28 Urine Urobilinogen 0.2 E.U./dL (0.2 - 1.0) 01/31/17 18:28 Ur Leukocyte Esterase NEGATIVE (NEGATIVE) 01/31/17 18:28 Urine RBC 0-2 /hpf (0-5) H 01/31/17 18:28 Urine WBC NONE SEEN /hpf (0-5) 01/31/17 18:28 Ur Epithelial Cells NONE SEEN /lpf (FEW) 01/31/17 18:28 Urine Bacteria NONE SEEN /hpf (NONE SEEN) 01/31/17 18:28 - Physical Exam Vitals and I&O: Vital Signs Temp 98.6 F 02/05/17 12:00 Pulse 104 02/05/17 12:00 Resp 22 02/05/17 12:00 BP 110/67 02/05/17 12:00 Pulse Ox 95 02/05/17 12:00 Intake & Output 02/04/17 02/05/17 02/05/17 18:59 06:59 18:59 Intake Total 1200 Output Total 1250 Balance -50 Weight (lbs) 93.44 kg 94.755 kg Intake: Intake, IV Amount 50 cefTRIAXone 1 gm In 50 Dextrose 5% 50 ml @ 100 mls/hr IV Q24H [facility] Rx#: [id number] Oral 1150 Output: Urine 1250 Other: # Bowel Movements 0 Active Medications: Current Medications Acetaminophen (Tylenol) 650 mg PO Q4HR PRN PRN Reason: Pain (Mild) Last Admin: 02/01/17 00:20 Dose: 650 mg Aripiprazole (Abilify) 5 mg PO BID [facility] PRN Reason: Protocol Stop: 04/01/17 08:59 Last Admin: 02/05/17 10:56 Dose: 5 mg Atenolol (Tenormin) 25 mg PO DAILY [facility] Stop: 04/01/17 08:59 Last Admin: 02/05/17 10:45 Dose: Not Given Benztropine Mesylate (Cogentin) 2 mg PO BID [facility] Stop: 04/01/17 08:59 Last Admin: 02/05/17 10:37 Dose: 2 mg Betamethasone/Clotrimazole (Lotrisone Cream) 1 appl TP BID [facility] Stop: 04/04/17 16:59 Last Admin: 02/05/17 10:44 Dose: 1 appl Buspirone HCl (Buspar) 10 mg PO BID [facility] Stop: 04/01/17 08:59 Last Admin: 02/05/17 10:56 Dose: 10 mg Calcium/Vitamin D (Oscal W/Vitamin D) 1 tab PO BID [facility] Stop: 04/01/17 08:59 Last Admin: 02/05/17 10:36 Dose: 1 tab Diphenhydramine HCl (Benadryl) 50 mg PO TID PRN PRN Reason: Itching Stop: 04/01/17 17:31 Divalproex Sodium (Depakote Dr) 500 mg PO BID [facility] PRN Reason: Protocol Stop: 04/01/17 08:59 Last Admin: 02/05/17 10:36 Dose: 500 mg Docusate Sodium (Colace) 100 mg PO BID [facility] Stop: 04/01/17 08:59 Last Admin: 02/05/17 10:36 Dose: 100 mg Furosemide (Lasix) 20 mg IVP DAILY [facility] Stop: 04/04/17 20:14 Last Admin: 02/05/17 10:45 Dose: Not Given Ceftriaxone Sodium 1 gm/ (Dextrose) 50 mls @ 100 mls/hr IV Q24H [facility] Stop: 04/04/17 10:59 Last Admin: 02/05/17 10:44 Dose: 100 mls/hr Lactic Acid (Lac-Hydrin Cream) 1 appl TP BID [facility] Stop: 04/04/17 16:59 Last Admin: 02/05/17 10:44 Dose: 1 appl Lactobacillus Rhamnosus (Culturelle) 1 each PO DAILY [facility] Stop: 04/07/17 08:59 Lamotrigine (Lamictal) 25 mg PO Q48HR@0900 [facility] Stop: 04/02/17 15:29 Last Admin: 02/05/17 10:35 Dose: 25 mg Levetiracetam (Keppra) 1,000 mg PO HS [facility] Stop: 04/01/17 20:59 Last Admin: 02/04/17 20:25 Dose: 1,000 mg Levetiracetam (Keppra) 750 mg PO BID [facility] Stop: 04/01/17 08:59 Last Admin: 02/05/17 10:36 Dose: 750 mg Miscellaneous (Vte Chemical Prophylaxis Screen/ Admission) 1 ea [facility] PRN PRN PRN Reason: PROTOCOL Stop: 04/01/17 12:24 Miscellaneous (Probiotic Screen) 1 ea [facility] PRN PRN PRN Reason: PROTOCOL Stop: 04/06/17 14:14 Pantoprazole Sodium (Protonix) 40 mg PO DAILY [facility] Stop: 04/01/17 08:59 Last Admin: 02/05/17 10:36 Dose: 40 mg Sodium Chloride (Nacl Tab) 1 gm PO BID [facility] Stop: 04/04/17 20:14 Last Admin: 02/05/17 10:36 Dose: 1 gm Tamsulosin HCl (Flomax) 0.4 mg PO DAILY [facility] Stop: 04/01/17 08:59 Last Admin: 02/05/17 10:36 Dose: 0.4 mg General: Alert, Mild distress HEENT: Atraumatic, PERRLA, EOMI, Mucous membr. moist/pink Neck: Supple, +2 carotid pulse wo bruit Cardiovascular: Regular rate, Normal S1, Normal S2 Lungs: Clear to auscultation Abdomen: Bowel sounds, Soft Extremities: no Edema Neurological: Sensation intact Skin: no Rash Psych/Mental Status: Other (confused) Assessment/Plan - Problem List Patient Problems: All Active Problems Abdominal pain (Acute) R10.9 BPH (benign prostatic hyperplasia) (Acute) N40.0 Bipolar disorder (Acute) Drug allergy (Acute) Z88.9 Epilepsy (Acute) G40.909 GERD (gastroesophageal reflux disease) (Acute) K21.9 HTN (hypertension) (Acute) I10 Hyponatremia (Acute) E87.1 Ileus (Acute) K56.7 Insomnia (Acute) G47.00 Macular rash (Acute) R21 fungal infection chest area (Acute) - Assessment Assessment: 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 Macular rash 2nd drug reaction Abd pain mild ileus Fungal infxn chest area Epilepsy Ess HTN GERD BPH Bipolar Disorder Insomnia - Plan Plan: Lab - Result Diagrams 01/31/17 04:33 02/01/17 05:14 Current Medications Acetaminophen (Tylenol) 650 mg PO Q4HR PRN PRN Reason: Pain (Mild) Last Admin: 02/01/17 00:20 Dose: 650 mg Aripiprazole (Abilify) 5 mg PO BID [facility] PRN Reason: Protocol Stop: 04/01/17 08:59 Atenolol (Tenormin) 25 mg PO DAILY [facility] Stop: 04/01/17 08:59 Last Admin: 02/01/17 10:33 Dose: Not Given Benztropine Mesylate (Cogentin) 2 mg PO BID [facility] Stop: 04/01/17 08:59 Last Admin: 02/01/17 08:56 Dose: 2 mg Buspirone HCl (Buspar) 10 mg PO BID [facility] Stop: 04/01/17 08:59 Calcium/Vitamin D (Oscal W/Vitamin D) 1 tab PO BID [facility] Stop: 04/01/17 08:59 Last Admin: 02/01/17 08:56 Dose: 1 tab Diphenhydramine HCl (Benadryl) 50 mg PO TID PRN PRN Reason: Itching Stop: 04/01/17 17:31 Divalproex Sodium (Depakote Dr) 500 mg PO BID [facility] PRN Reason: Protocol Stop: 04/01/17 08:59 Last Admin: 02/01/17 08:56 Dose: 500 mg Docusate Sodium (Colace) 100 mg PO BID [facility] Stop: 04/01/17 08:59 Last Admin: 02/01/17 08:57 Dose: 100 mg Sodium Chloride (Nacl 0.9%) 1,000 mls @ 125 mls/hr IV .Q8H [facility] Stop: 04/01/17 00:29 Last Infusion: 02/01/17 14:34 Dose: 125 mls/hr Levetiracetam (Keppra) 1,000 mg PO HS [facility] Stop: 04/01/17 20:59 Last Admin: 01/31/17 21:12 Dose: 1,000 mg Levetiracetam (Keppra) 750 mg PO BID [facility] Stop: 04/01/17 08:59 Last Admin: 02/01/17 08:57 Dose: 750 mg Miscellaneous (Vte Chemical Prophylaxis Screen/ Admission) 1 ea [facility] PRN PRN PRN Reason: PROTOCOL Stop: 04/01/17 12:24 Oxcarbazepine (Trileptal) 600 mg PO BID [facility] PRN Reason: Protocol Stop: 04/01/17 08:59 Last Admin: 02/01/17 08:57 Dose: 600 mg Pantoprazole Sodium (Protonix) 40 mg PO DAILY [facility] Stop: 04/01/17 08:59 Last Admin: 02/01/17 08:57 Dose: 40 mg Tamsulosin HCl (Flomax) 0.4 mg PO DAILY [facility] Stop: 04/01/17 08:59 Last Admin: 02/01/17 08:56 Dose: 0.4 Lab - Result Diagrams 01/31/17 04:33 02/05/17 05:23 Na same @ 123 on Lasix Fluoxitene dc'ed already will also dc Trileptal switch to Lamictal started on sodium tabs will need Samsca because of persistent hyponatremia possible dc to [facility] Nutritional Asmnt/Malnutr-PDOC - Dietary Evaluation Malnutrition Findings (Please click <Entered> for more info): Nutritional Asmnt/Malnutrition Start: 02/05/17 10: 38 Text: Status: Complete Freq: Document 02/04/17 16:39 LCHENG (Rec: 02/05/17 10:49 LCHENG [email or web address]) Nutritional Asmnt/Malnutrition Patient General Information Nutritional Screening Moderate Risk Diagnosis hyponatremia Pertinent Medical Hx/Surgical Hx HTN, seizure, GERD, BPH, insomnia, bipolar Subjective Information Pt seen lying in bed, awake during the time of visit. Arabic speaking. Per notes PO intake 80-100%. Pt appeared no fat/muscle wasting. Current Diet Order/ Nutrition Support Regular Pertinent Medications calcium, vitamin D, colace, lasix, protonix, Nacl tab Pertinent Labs 02/04 Na 125, K 4.0, Cl 92, BUN 14, Cr 0.8, Glucose 78, Ca 9.6 Nutritional Hx/Data Height 1.57 m Height (Calculated Centimeters) 157.5 Current Weight (lbs) 93.44 kg Weight (Calculated Kilograms) 93.4 Weight (Calculated Grams) 53324.0 [place] Body Weight 118 % [place] Body Weight 177 Body Mass Index (BMI) 37.6 Weight Status Obese GI Symptoms GI Symptoms None Last BM 02/01 Difficult in: None Skin Integrity/Comment: reddened rash to left lateral abdomen, right leg, left leg and abdomen Estimated Nutritional Goals BEE in Kcals: Adj wt of IBW Calories/Kcals/Kg 25-30 Kcals Calculated 6015-9145 Protein: Adj wt of IBW Protein g/k Protein Calculated 64 Fluid: ml 9652-3015 Nutritional Problem 1. Problem Problem altered nutrition related lab values Etiology imbalanced electrolytes Signs/Symptoms: Na 125, Cl 92 Malnutrition Alert Protein-Calorie Malnutrition N/A Is there a minimum of two criteria No selected? Query Text:Check all the applicable criteria. A minimum of two criteria are recommended for diagnosis of either severe or non-severe malnutrition. Intervention/Recommendation Comments 1. Continue with current diet as ordered. 2. Monitor PO intake, wt weekly, labs and skin integrity 3. F/U as low risk in 7 days, 02/11 Expected Outcomes/Goals Expected Outcomes/Goals 1. PO intake to meet at least 75% of nutritional needs. 2. Wt stability, skin to remain intact, labs to approach WNL.
--- NOTE | 2017-02-05 16:28 | General Progress Note ---
Subjective - Review of Systems Events since last encounter: no change no fever Objective - Results Result Diagrams: 01/31/17 04:33 02/05/17 05:23 Recent Labs: Laboratory Last Values WBC 7.4 Th/cmm (4.8-10.8) D 01/31/17 04:33 RBC 4.43 Mil/cmm (4.30-5.70) 01/31/17 04:33 Hgb 14.9 gm/dL (12-16) 01/31/17 04:33 Hct 43.9 % (41.0-60) 01/31/17 04:33 MCV 99.1 fl (80-99) H 01/31/17 04:33 MCH 33.6 pg (26.0-30.0) H 01/31/17 04:33 MCHC Differential 33.9 pg (28.0-36.0) 01/31/17 04:33 RDW 12.9 % (11.5-20.0) 01/31/17 04:33 Plt Count 91 Th/cmm (150-400) L 01/31/17 04:33 MPV 8.4 fl 01/31/17 04:33 Neutrophils (Manual) 50 % (40-80) 01/30/17 21:36 Lymphocytes 30 % (20-50) 01/30/17 21:36 Monocytes 17 % (2-10) H 01/30/17 21:36 Eosinophils 3 % (0-5) 01/30/17 21:36 Platelet Estimate DECREASED PLATELETS (NORMAL) 01/30/17 21:36 Sodium 123 mEq/L (136-145) L 02/05/17 05:23 Potassium 4.0 mEq/L (3.5-5.1) 02/05/17 05:23 Chloride 92 mEq/L (98-107) L 02/05/17 05:23 Carbon Dioxide 22.0 mEq/L (21.0-31.0) 02/05/17 05:23 Anion Gap 13.0 (7.0-16.0) 02/05/17 05:23 BUN 21 mg/dL (7-25) 02/05/17 05:23 Creatinine 0.9 mg/dL (0.7-1.3) 02/05/17 05:23 Est GFR ( Amer) > 60.0 ml/min (>90) 02/05/17 05:23 Est GFR (Non-Af Amer) > 60.0 ml/min 02/05/17 05:23 BUN/Creatinine Ratio 23.3 02/05/17 05:23 Glucose 86 mg/dL (70-105) 02/05/17 05:23 Plasma/Ser Osmolality 253 mOsmol/kg (275-295) L 01/31/17 04:33 Uric Acid 2.7 mg/dL (4.4-7.6) L 02/01/17 05:14 Calcium 9.6 mg/dL (8.6-10.3) 02/05/17 05:23 Total Bilirubin 0.6 mg/dL (0.3-1.0) 01/30/17 21:36 AST 31 U/L (13-39) 01/30/17 21:36 ALT 18 U/L (7-52) 01/30/17 21:36 Alkaline Phosphatase 55 U/L (34-104) 01/30/17 21:36 Total Protein 6.7 gm/dL (6.0-8.3) 01/30/17 21:36 Albumin 4.1 gm/dL (4.2-5.5) L 01/30/17 21:36 Globulin 2.6 gm/dL 01/30/17 21:36 Albumin/Globulin Ratio 1.6 (1.0-1.8) 01/30/17 21:36 TSH 2.34 uIU/ml (0.34-5.60) 02/01/17 05:14 Urine Source MIDSTREAM 01/31/17 18:28 Urine Color YELLOW 01/31/17 18:28 Urine Clarity CLEAR (CLEAR) 01/31/17 18:28 Urine pH 6.5 (4.6 - 8.0) 01/31/17 18:28 Ur Specific [place] 1.010 (1.005-1.030) 01/31/17 18:28 Urine Protein NEGATIVE mg/dL (NEGATIVE) 01/31/17 18:28 Urine Glucose (UA) NEGATIVE mg/dL (NEGATIVE) 01/31/17 18:28 Urine Ketones TRACE mg/dL (NEGATIVE) 01/31/17 18:28 Urine Blood TRACE (NEGATIVE) 01/31/17 18:28 Urine Nitrate NEGATIVE (NEGATIVE) 01/31/17 18:28 Urine Bilirubin NEGATIVE (NEGATIVE) 01/31/17 18:28 Urine Urobilinogen 0.2 E.U./dL (0.2 - 1.0) 01/31/17 18:28 Ur Leukocyte Esterase NEGATIVE (NEGATIVE) 01/31/17 18:28 Urine RBC 0-2 /hpf (0-5) H 01/31/17 18:28 Urine WBC NONE SEEN /hpf (0-5) 01/31/17 18:28 Ur Epithelial Cells NONE SEEN /lpf (FEW) 01/31/17 18:28 Urine Bacteria NONE SEEN /hpf (NONE SEEN) 01/31/17 18:28 - Physical Exam Vitals and I&O: Vital Signs Temp 98.6 F 02/05/17 14:30 Pulse 104 02/05/17 14:30 Resp 22 02/05/17 14:30 BP 110/67 02/05/17 14:30 Pulse Ox 95 02/05/17 14:30 Intake & Output 02/04/17 02/05/17 02/05/17 18:59 06:59 18:59 Intake Total 1200 Output Total 1250 Balance -50 Weight (lbs) 93.44 kg 94.755 kg Intake: Intake, IV Amount 50 cefTRIAXone 1 gm In 50 Dextrose 5% 50 ml @ 100 mls/hr IV Q24H [facility] Rx#: [id number] Oral 1150 Output: Urine 1250 Other: # Bowel Movements 0 Active Medications: Current Medications Acetaminophen (Tylenol) 650 mg PO Q4HR PRN PRN Reason: Pain (Mild) Last Admin: 02/01/17 00:20 Dose: 650 mg Aripiprazole (Abilify) 5 mg PO BID [facility] PRN Reason: Protocol Stop: 04/01/17 08:59 Last Admin: 02/05/17 10:56 Dose: 5 mg Atenolol (Tenormin) 25 mg PO DAILY [facility] Stop: 04/01/17 08:59 Last Admin: 02/05/17 10:45 Dose: Not Given Benztropine Mesylate (Cogentin) 2 mg PO BID [facility] Stop: 04/01/17 08:59 Last Admin: 02/05/17 10:37 Dose: 2 mg Betamethasone/Clotrimazole (Lotrisone Cream) 1 appl TP BID [facility] Stop: 04/04/17 16:59 Last Admin: 12/21/17 10:44 Dose: 1 appl Buspirone HCl (Buspar) 10 mg PO BID [facility] Stop: 04/01/17 08:59 Last Admin: 02/05/17 10:56 Dose: 10 mg Calcium/Vitamin D (Oscal W/Vitamin D) 1 tab PO BID [facility] Stop: 04/01/17 08:59 Last Admin: 02/05/17 10:36 Dose: 1 tab Diphenhydramine HCl (Benadryl) 50 mg PO TID PRN PRN Reason: Itching Stop: 04/01/17 17:31 Divalproex Sodium (Depakote Dr) 500 mg PO BID [facility] PRN Reason: Protocol Stop: 04/01/17 08:59 Last Admin: 02/05/17 10:36 Dose: 500 mg Docusate Sodium (Colace) 100 mg PO BID [facility] Stop: 04/01/17 08:59 Last Admin: 02/05/17 10:36 Dose: 100 mg Ceftriaxone Sodium 1 gm/ (Dextrose) 50 mls @ 100 mls/hr IV Q24H [facility] Stop: 04/04/17 10:59 Last Admin: 02/05/17 10:44 Dose: 100 mls/hr Lactic Acid (Lac-Hydrin Cream) 1 appl TP BID [facility] Stop: 04/04/17 16:59 Last Admin: 02/05/17 10:44 Dose: 1 appl Lactobacillus Rhamnosus (Culturelle) 1 each PO DAILY [facility] Stop: 04/07/17 08:59 Lamotrigine (Lamictal) 25 mg PO Q48HR@0900 [facility] Stop: 04/02/17 15:29 Last Admin: 02/05/17 10:35 Dose: 25 mg Levetiracetam (Keppra) 1,000 mg PO HS [facility] Stop: 04/01/17 20:59 Last Admin: 02/04/17 20:25 Dose: 1,000 mg Levetiracetam (Keppra) 750 mg PO BID [facility] Stop: 04/01/17 08:59 Last Admin: 02/05/17 10:36 Dose: 750 mg Miscellaneous (Vte Chemical Prophylaxis Screen/ Admission) 1 ea PRN PRN PRN Reason: PROTOCOL Stop: 04/01/17 12:24 Miscellaneous (Probiotic Screen) 1 ea PRN PRN PRN Reason: PROTOCOL Stop: 04/06/17 14:14 Pantoprazole Sodium (Protonix) 40 mg PO DAILY [facility] Stop: 04/01/17 08:59 Last Admin: 02/05/17 10:36 Dose: 40 mg Sodium Chloride (Nacl Tab) 1 gm PO BID [facility] Stop: 04/04/17 20:14 Last Admin: 02/05/17 10:36 Dose: 1 gm Tamsulosin HCl (Flomax) 0.4 mg PO DAILY [facility] Stop: 04/01/17 08:59 Last Admin: 02/05/17 10:36 Dose: 0.4 mg General: Alert, Mild distress HEENT: Atraumatic, PERRLA, EOMI, Mucous membr. moist/pink Neck: Supple, +2 carotid pulse wo bruit Cardiovascular: Regular rate, Normal S1, Normal S2 Lungs: Clear to auscultation Abdomen: Bowel sounds, Soft Extremities: no Edema Neurological: Sensation intact Skin: no Rash Psych/Mental Status: Other (confused) Assessment/Plan - Problem List Patient Problems: All Active Problems Abdominal pain (Acute) R10.9 BPH (benign prostatic hyperplasia) (Acute) N40.0 Bipolar disorder (Acute) Drug allergy (Acute) Z88.9 Epilepsy (Acute) G40.909 GERD (gastroesophageal reflux disease) (Acute) K21.9 HTN (hypertension) (Acute) I10 Hyponatremia (Acute) E87.1 Ileus (Acute) K56.7 Insomnia (Acute) G47.00 Macular rash (Acute) R21 fungal infection chest area (Acute) - Plan Plan: labs monitor vitals diet f/up consultants Nutritional Asmnt/Malnutr-PDOC - Dietary Evaluation Malnutrition Findings (Please click <Entered> for more info): Nutritional Asmnt/Malnutrition Start: 02/05/17 10: 38 Text: Status: Complete Freq: Document 02/04/17 16:39 JACKIE (Rec: 02/05/17 10:49 JACKIE [email or web address]) Nutritional Asmnt/Malnutrition Patient General Information Nutritional Screening Moderate Risk Diagnosis hyponatremia Pertinent Medical Hx/Surgical Hx HTN, seizure, GERD, BPH, insomnia, bipolar Subjective Information Pt seen lying in bed, awake during the time of visit. Faroese speaking. Per notes PO intake 80-100%. Pt appeared no fat/muscle wasting. Current Diet Order/ Nutrition Support Regular Pertinent Medications calcium, vitamin D, colace, lasix, protonix, Nacl tab Pertinent Labs 02/04 Na 125, K 4.0, Cl 92, BUN 14, Cr 0.8, Glucose 78, Ca 9.6 Nutritional Hx/Data Height 1.57 m Height (Calculated Centimeters) 157.5 Current Weight (lbs) 93.44 kg Weight (Calculated Kilograms) 93.4 Weight (Calculated Grams) 67005.0 [place] Body Weight 118 % [place] Body Weight 177 Body Mass Index (BMI) 37.6 Weight Status Obese GI Symptoms GI Symptoms None Last BM 02/01 Difficult in: None Skin Integrity/Comment: reddened rash to left lateral abdomen, right leg, left leg and abdomen Estimated Nutritional Goals BEE in Kcals: Adj wt of IBW Calories/Kcals/Kg 25-30 Kcals Calculated 2323-5630 Protein: Adj wt of IBW Protein g/k Protein Calculated 64 Fluid: ml 4708-6759 Nutritional Problem 1. Problem Problem altered nutrition related lab values Etiology imbalanced electrolytes Signs/Symptoms: Na 125, Cl 92 Malnutrition Alert Protein-Calorie Malnutrition N/A Is there a minimum of two criteria No selected? Query Text:Check all the applicable criteria. A minimum of two criteria are recommended for diagnosis of either severe or non-severe malnutrition. Intervention/Recommendation Comments 1. Continue with current diet as ordered. 2. Monitor PO intake, wt weekly, labs and skin integrity 3. F/U as low risk in 7 days, 02/11 Expected Outcomes/Goals Expected Outcomes/Goals 1. PO intake to meet at least 75% of nutritional needs. 2. Wt stability, skin to remain intact, labs to approach WNL.
[2017-02-06] MEDS ORDERED: Lactobacillus Rhamnosus 10 Billion CFU Capsule PO SCH (09:00)
--- NOTE | 2017-03-16 14:16 | Discharge Summary ---
DATE OF DISCHARGE: 02/05/2017 The patient is a 61-year-old complaining of abdominal pain and constipation. Diagnosis of abdominal pain, rule out diverticulitis, history of hyponatremia, hypertension, bipolar disorder, seizure, gastroenteritis, benign enlargement of the prostate. The patient was given IV fluids and the patient had a GI consultation. The patient gradually improved and the patient was in stable condition on 02/05/2017, was discharged back to [facility] where I will be following the patient. PLAN: See the reconciliation sheet. ACTIVITY: As tolerated. JOB# [id number]
== END 2017-02-05 16:00 | disposition short-term general hospital (02) | DRG 426 ==
LOC: ER 18:53 → TELE 23:25 → MSI 02-02 10:30
PROVIDERS: ADMIT Internal Medicine; ATTEND Internal Medicine
DX: E22.2 Syndrome of inappropriate secretion of antidiuretic hormone (principal); B48.8 Other specified mycoses; K56.7 Ileus, unspecified; L03.116 Cellulitis of left lower limb; B35.4 Tinea corporis; G40.909 Epilepsy, unspecified, not intractable, without status epilepticus; E66.9 Obesity, unspecified; F31.9 Bipolar disorder, unspecified; I10 Essential (primary) hypertension; K21.9 Gastro-esophageal reflux disease without esophagitis; T50.995A Adverse effect of other drugs, medicaments and biological substances, initial encounter; N40.0 Benign prostatic hyperplasia without lower urinary tract symptoms; G47.00 Insomnia, unspecified; K59.00 Constipation, unspecified; R21 Rash and other nonspecific skin eruption; R31.9 Hematuria, unspecified; L30.8 Other specified dermatitis; L85.3 Xerosis cutis; Z68.38 Body mass index [BMI] 38.0-38.9, adult; Y92.89 Other specified places as the place of occurrence of the external cause
CPT/HCPCS: 36415-UA; 71010-TC; 74000-TC; 76770-TC; 80048-TC; 80053-TC; 81001-TC; 83930-90; 84443-TC; 84550-TC; 85007-TC; 85027-TC; 93926-LT-TC; J0696; J1940; J7030; Z7502; Z7610

== ENCOUNTER 2017-07-08 12:05 | Inpatient (IN) | payer MEDICAID ==
--- NOTE | 2017-07-08 12:30 | ED Physician Chart ---
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 Patient has been less alert than usual since 0930 this morning. Apparently no other symptoms. Patient did have a grand mal seizure last week which lasted less than 3 minutes. No evidence of a more recent seizure. Patient has a history of hyponatremia the etiology of which the lumber press operator is not aware but he does state the patient drinks a lot of liquids. Allergies:: Allergies Allergy/AdvReac Type Severity Reaction Status Date / Time No Known Allergies Allergy Verified 01/30/17 19:57 Historian:: Other (care provider) Review:: Nurse's Note Reviewed ED Review of Systems - Review of Systems General/Constitutional: No fever, No chills, No weight loss, No weakness, No diaphoresis, No edema, No loss of appetite Skin: No skin lesions, No rash, No bruising Head: No headache, No light-headedness Eyes: No loss of vision, No pain, No diplopia ENT: No earache, No nasal drainage, No sore throat, No tinnitus Neck: No neck pain, No swelling, No thyromegaly, No stiffness, No mass noted Cardio Vascular: No chest pain, No palpitations, No PND, No orthopnea, No edema Pulmonary: No SOB, No cough, No sputum, No wheezing GI: No nausea, No vomiting, No diarrhea, No pain, No melena, No hematochezia, No constipation, No hematemesis G/U: No dysuria, No frequency, No hematuria Musculoskeletal: No bone or joint pain, No back pain, No muscle pain Endocrine: No polydipsia, Other (possible polyuria) Psychiatric: Prior psych history, No depression, No anxiety, No suicidal ideation Hematopoietic: No bruising, No lymphadenopathy Allergic/Immuno: No urticaria, No angioedema Neurological: No syncope, No focal symptoms, No weakness, No paresthesia, No headache, No seizure, No dizziness, No confusion, No vertigo, Other (altered level consciousness) Family Medical History - Family Member Mother History Unknown: Yes Ethnicity: ED Physical Exam - Physical Examination General/Constitutional: Awake, Well-developed, well-nourished, Alert, No distress, GCS 15, Non-toxic appearing, Ambulatory Head: Atraumatic Eyes: Lids, conjuctiva normal, PERRL, EOMI Skin: Nl inspection, No rash, No skin lesions, No ecchymosis, Well hydrated, No lymphadenopathy ENMT: External ears, nose nl, Nasal exam nl, Lips, teeth, gums nl Neck: Nontender, Full ROM w/o pain, No JVD, No nuchal rigidity, No bruit, No mass, No stridor Respiratory: Nl effort/Exclusion, Clear to Auscultation, No Wheeze/Rhonchi/Rales Cardio Vascular: RRR, No murmur, gallop, rubs, NL S1 S2 GI: No tenderness/rebounding/guarding, No organomegaly, No hernia, Normal BS's, Nondistended, No mass/bruits, No McBurney tenderness : No CVA tenderness Extremities: Full ROM, normal strength in all extremities, No edema, Normal digits & nails Other Extremities comments:: 2 out of 4 pretibial pitting edema Neuro/Psych: Alert/oriented, Mood normal, No focal deficits Misc: No paraspinal tenderness ED Labs/Radiology/EKG Results - Lab Results Results: Laboratory Tests 07/08/17 12:21 POC Glucose 99 Laboratory Results - last 24 hr 07/08/17 07/08/17 07/08/17 12:21 12:35 12:35 WBC 6.8 RBC 4.33 Hgb 14.6 Hct 42.7 MCV 98.5 MCH 33.8 H MCHC Differential 34.3 RDW 12.9 Plt Count 118 L MPV 7.9 Neutrophils % 63.1 Lymphocytes % 24.4 Monocytes % 11.4 H Eosinophils % 0.6 Basophils % 0.5 Sodium 120 L Potassium 3.9 Chloride 88 L Carbon Dioxide 26.3 Anion Gap 9.6 BUN 12 Creatinine 0.7 Est GFR ( Amer) > 60.0 Est GFR (Non-Af Amer) > 60.0 BUN/Creatinine Ratio 17.1 Glucose 87 POC Glucose 99 Calcium 9.0 Total Bilirubin 0.4 AST 17 ALT 10 Alkaline Phosphatase 59 Total Protein 6.7 Albumin 3.8 L Globulin 2.9 Albumin/Globulin Ratio 1.3 ED Septic Shock - . Is Septic Shock (SBP<90, OR Lactate>4 mmol\L) present?: No ED Reassessment (Disposition) - Reassessment Reassessment Condition:: Unchanged - Diagnosis Diagnosis:: Symptomatic hyponatremia; mental retardation - Patient Disposition Admitted to:: Med/Surg Spoke to:: Faith Franz Admitting Medical Physician:: Faith Franz Condition at Disposition:: Stable, Unchanged
[2017-07-08 12:45] LABS: % BASOPHILS 0.5 % (0.0-2.0); % EOSINOPHILS 0.6 % (0.0-5.0); % LYMPHOCYTES 24.4 % (20.0-50.0); % MONOCYTES 11.4 % (2.0-10.0); % NEUTROPHILS 63.1 % (40.0-80.0); HEMATOCRIT 42.7 % (41.0-60); HEMOGLOBIN 14.6 gm/dL (12-16); LYMPHOCYTE ABSOLUTE 1.7 Th/cmm (1.5-3.0); MEAN CELL VOLUME 98.5 fl (80-99); MEAN CORPUSCULAR HEMOGLOBIN 33.8 pg (26.0-30.0); MEAN CORPUSCULAR HGB CONC 34.3 pg (28.0-36.0); MEAN PLATELET VOLUME 7.9 fl; MONOCYTE ABSOLUTE 0.8 Th/cmm (0.3-1.0); NEUTROPHILE ABSOLUTE 4.3 Th/cmm (1.8-8.0); PLATELET COUNT 118 Th/cmm (150-400); RED BLOOD COUNT 4.33 Mil/cmm (4.30-5.70); RED CELL DISTRIBUTION WIDTH 12.9 % (11.5-20.0); WHITE BLOOD COUNT 6.8 Th/cmm (4.8-10.8)
[2017-07-08 12:59] LABS: ALB/GLOB RATIO 1.3 (1.0-1.8); ALBUMIN 3.8 gm/dL (4.2-5.5); ALKALINE PHOSPHATASE 59 U/L (34-104); ANION GAP 9.6 (7.0-16.0); BILIRUBIN,TOTAL 0.4 mg/dL (0.3-1.0); BUN - UREA NITROGEN 12 mg/dL (7-25); CARBON DIOXIDE 26.3 mEq/L (21.0-31.0); CHLORIDE 88 mEq/L (98-107); CREATININE - SERUM 0.7 mg/dL (0.7-1.3); GFR AFRICAN-AMERICAN > 60.0 ml/min (>90); GFR NON AFRICAN-AMERICAN > 60.0 ml/min; GLUCOSE 87 mg/dL (70-105); POTASSIUM SERUM 3.9 mEq/L (3.5-5.1); SGOT 17 U/L (13-39); SGPT/ALT 10 U/L (7-52); TOTAL PROTEIN,SERUM 6.7 gm/dL (6.0-8.3)
[2017-07-08 13:00] LABS: SODIUM SERUM 120 mEq/L (136-145)
[2017-07-08] MEDS ORDERED: Sodium Chloride 0.9% 1,000 ML IV ONE (13:02)
[2017-07-08] MEDS ORDERED: Sodium Chloride 0.9% 1,000 ML IV SCH (15:30)
[2017-07-08] MEDS: Albuterol/Ipratropium Neb 3 ML AERS HHN SCH ×3 (16:05→23:05)
[2017-07-08] MEDS ORDERED: Sodium Chloride 3% 500 ML IV ONE ×2 (19:30→22:05)
--- NOTE | 2017-07-08 20:16 | Consultation ---
DATE OF CONSULTATION: 07/08/2017 AGE OF THE PATIENT: 61 years. SEX: Male. RACE: . REQUESTING PHYSICIAN: Dr. Franz. TIME: 6:30 p.m. REASON FOR CONSULTATION: Severe electrolyte imbalance and other associated problems. HISTORY OF PRESENT ILLNESS: The patient is awake, Ukrainian speaking, able to communicate reasonably well. Sometimes seems to be a little bit disoriented, although not sure because of language problems. On questioning, the patient stated that he had severe headache sometime back and had been having headaches off and on, but does not have a headache now. Reason for this has not been clear whether he had any injury or anything else. The other problem remains as he may be having some tumor pathology or subarachnoid hemorrhage. On clinical examination, it is difficult to do that much thing out here because of his understanding, but he is able to follow some commands and it seems the cranial nerves seem to be intact at present time. There is no significant nystagmus noticed. PHYSICAL EXAMINATION VITAL SIGNS: At present seems to be okay. The patient is afebrile at present. Able to communicate. Eye movement seems to be okay. Heart rate is around 80 per minute, blood pressure essentially in the normal range except for borderline high. No other significant problems noticed on this examination. SKIN: Turgor seems to be normal. EXTREMITIES: No pedal edema notice at present on clinical examination. Peripheral pulses are reasonably well felt. The patient is able to mobilize all the 4 extremities reasonably well. CHEST: Reveals good air entry bilaterally. HEART: Heart sounds S1, S2 normally heard. There is no EKG in the chart, so difficult to evaluate. LABORATORY DATA: The patient's biochemical data had been as follows done at about 12:00 noon. The patient had a valproic acid level done, which was 116 borderline high Tegretol level less than 2.0, hemoglobin 14.6 with WBC count of 6.8, platelet count of 118. Differential seems to be essentially normal. Electrolytes and other chemistries reveal the following: Sodium 120, potassium 3.9, chloride 88, CO2 content 26.3, glucose 87, BUN 12, creatinine 0.7. Albumin 3.8, total protein 6.7. Liver enzymes are essentially normal. MEDICATIONS: Medications what he has been getting are as follows: The patient is getting bisacodyl 5 mg; milk of magnesia suspension, amount is not clear how much; acetaminophen 325 mg p.o. p.r.n. The patient had been also getting Buspirone 5 mg tablets; again, we do not know what exactly the doses was. Natural fiber laxative; Latuda 40 mg tablets, he does not say how much doses he has been getting. He has been getting also Flomax 0.4 mg, omeprazole. The patient had been also getting atenolol 25 mg; Keppra, no doses written and how much; also Trileptal, again no doses here, this has been in the care home and looks like a docusate soft gel. Medications here are not known. Considering the above, likely possibility is patient has syndrome of inappropriate ADH. Since the patient is not getting any diuretics and he does not have any diarrhea or wasting electrolytes seems to be unlikely to be an adrenal insufficiency or salt wasting nephropathy. Advised to get a urinalysis now. Normal saline to run only 15 mL per hour to keep vein open. Uric acid level on the blood drawn earlier and to run 3% saline 300 mL over 10 hours that is 30 mL per hour one time only. Hold Depakote. CBC, CMP, phosphorus tomorrow a.m. Magnesium level now on blood drawn earlier. Total fluid restriction [address] scan of the head to rule out tumor pathology or subarachnoid hemorrhage. In addition, the patient needs to have an EKG to be done. I tried to call Dr. Franz, left a message for him. We need to have some more history, so as to find out what else he has been treated for. JOB# [id number]
[2017-07-08] MEDS: Sodium Chloride 0.9% 1,000 ML IV SCH (20:27)
[2017-07-08] MEDS: PHENYLEPHRINE TP SCH (21:36)
[2017-07-09] MEDS: Albuterol/Ipratropium Neb 3 ML AERS HHN SCH ×4 (03:04→20:16)
--- NOTE | 2017-07-09 03:49 | Progress Notes ---
DATE: 07/08/2017 REASON FOR CONSULTATION: Help the patient manage with shortness of breath. CONSULT NOTE: This is a 61-year-old -speaking gentleman who has history of mentally challenged issue with a history of previous seizure disorder. The patient was brought up here with altered state of mind. Subsequently, the patient was found to have electrolyte imbalance some wheezing, subsequently I was asked to see this patient. The patient is awake, very minimal communication could be done though his transit does not offer any. He has complaints of abdominal pain. Denies of any coughing or chest pain or any other breathing difficulty. PAST MEDICAL HISTORY: History of hyponatremia, history of morbid obesity, history of seizure disorder, history of suspect obstructive sleep apnea syndrome. SMOKING HISTORY: Nil. Other history is very minimal to nil. ALLERGIC HISTORY: Nill. PHYSICAL EXAMINATION: GENERAL: This is a middle-aged heavy set, looking gentleman, awake, alert, oriented, not in any acute distress. VITAL SIGNS: Head is essentially unremarkable. HEENT: Pupils appear to be equal and reactive to light. Conjunctivae are slightly pallor. Oral cavity shows fair dental hygiene with small oropharyngeal opening. NECK: Very short. No nodes in the neck could be palpated. CHEST: Finding shows diminished air entry with occasional upper airway secretory noise. HEART: Regular. ABDOMEN: Protuberant. EXTREMITIES: Shows no peripheral edema. LABORATORY DATA: The patient's chest x-ray is not available. The patient's white count is 6.8, hemoglobin is 14.6, platelet count is 118. Sodium is 120 with chloride 118. ASSESSMENT: 1. The patient is possibly mild asthmatic episode complicated by possibly still severe obstructive sleep apnea syndrome. 2. Suspect syndrome of inappropriate antidiuretic hormone secretion or hyper hydration or embolization of the fluid causing hyponatremia dilutional. PLANS AND SUGGESTIONS: We will check serum SIADH, urine C and S. We will give breathing treatment. Get a basic chest x-ray, blood gas is pending. We may consider put him on BiPAP. Pending other things availability and go from there and we will be glad to follow along with you. JOB# [id number]
[2017-07-09] MEDS: Pantoprazole 40 mg EC Tab PO SCH (06:43)
[2017-07-09 06:48] LABS: EOSINOPHILE ABSOLUTE 0.1 Th/cmm (0.1-0.4); HEMATOCRIT 41.5 % (41.0-60); HEMOGLOBIN 14.2 gm/dL (12-16); LYMPHOCYTE ABSOLUTE 1.6 Th/cmm (1.5-3.0); MANUAL DIFF REQUIRED? YES; MEAN CELL VOLUME 99.9 fl (80-99); MEAN CORPUSCULAR HEMOGLOBIN 34.2 pg (26.0-30.0); MEAN CORPUSCULAR HGB CONC 34.2 pg (28.0-36.0); MEAN PLATELET VOLUME 8.5 fl; NEUTROPHILE ABSOLUTE 3.4 Th/cmm (1.8-8.0); PLATELET COUNT 104 Th/cmm (150-400); RED BLOOD COUNT 4.15 Mil/cmm (4.30-5.70); RED CELL DISTRIBUTION WIDTH 13.1 % (11.5-20.0); WHITE BLOOD COUNT 6.1 Th/cmm (4.8-10.8)
[2017-07-09 07:17] LABS: ALB/GLOB RATIO 1.3 (1.0-1.8); ALBUMIN 3.5 gm/dL (4.2-5.5); ALKALINE PHOSPHATASE 55 U/L (34-104); ANION GAP 10.6 (7.0-16.0); BILIRUBIN,DIRECT 0.15 mg/dL (0.0-0.2); BILIRUBIN,TOTAL 0.5 mg/dL (0.3-1.0); BUN - UREA NITROGEN 11 mg/dL (7-25); CALCIUM SERUM 8.8 mg/dL (8.6-10.3); CARBON DIOXIDE 24.2 mEq/L (21.0-31.0); CHLORIDE 92 mEq/L (98-107); CREATININE - SERUM 0.7 mg/dL (0.7-1.3); GFR AFRICAN-AMERICAN > 60.0 ml/min (>90); GFR NON AFRICAN-AMERICAN > 60.0 ml/min; GLUCOSE 76 mg/dL (70-105); MAGNESIUM 1.8 mg/dL (1.9-2.7); POTASSIUM SERUM 3.8 mEq/L (3.5-5.1); SGOT 15 U/L (13-39); SGPT/ALT 10 U/L (7-52); SODIUM SERUM 123 mEq/L (136-145); TOTAL PROTEIN,SERUM 6.2 gm/dL (6.0-8.3)
[2017-07-09 07:22] LABS: TOTAL CELLS COUNTED 100
[2017-07-09 07:23] LABS: EOSINOPHIL 2 % (0-5); LYMPHOCYTE 30 % (20-50); MONOCYTE 15 % (2-10); NEUTROPHILS 53 % (40-80); PLATELET ESTIMATE DECREASED PLATELETS (NORMAL)
[2017-07-09] MEDS: Budesonide 0.5 Mg/2 mL Ud HHN SCH ×2 (07:39→20:16)
--- NOTE | 2017-07-09 08:10 | Diagnostic Imaging Report ---
Head CT without intravenous contrast Indication: Mass Comparison: None Technique: Axial images were obtained from the vertex to the skull base without IV contrast. Coronal reconstructions were made. Total DLP: 771, [id number] FINDINGS: Exam is limited due to lack of IV contrast. Images of the brain obtained without contrast demonstrate no evidence of an acute hemorrhage. The cartagena-white matter differentiation is preserved. The ventricles and basal cisterns are patent. No mass effect or midline shift. No gross mass lesions identified. No evidence of a skull fracture. There is mild right frontal soft tissue swelling. There is mild mucosal thickening of the paranasal sinuses. IMPRESSION: No acute intracranial abnormality. No mass lesions identified, however, exam was limited due to lack of IV contrast. If indicated, follow up CT or MRI with IV contrast may also be obtained for further assessment. Mild soft tissue swelling of the right frontal scalp.
--- NOTE | 2017-07-09 08:18 | Diagnostic Imaging Report ---
CHEST X-RAY: AP view INDICATION: Shortness of breath, wheezing COMPARISON: 01/30/2017 FINDINGS: The patient is mildly rotated. Low lung volumes are seen with increased bibasal lung markings. Heart size cannot be well assessed due to patient's low lung markings. No focal consolidation or definite effusions. Mildly tortuous aorta is noted. Degenerative changes of the spine are noted. IMPRESSION: Low lung volumes with increased bibasilar lung markings favoring atelectatic changes versus scarring. No focal consolidation identified. Please correlate with clinical findings.
[2017-07-09 09:58] LABS: ALLEN TEST Positive; pH 7.45 (7.35-7.45)
[2017-07-09] MEDS: Benztropine 1 MG TAB PO SCH ×2 (10:08→17:14)
[2017-07-09] MEDS: Levothyroxine 0.125 Mg Tab PO SCH (10:20)
[2017-07-09] MEDS: PHENYLEPHRINE TP SCH ×4 (10:20→23:03)
[2017-07-09] MEDS ORDERED: Sodium Chloride 3% 500 ML IV ONE (11:00)
[2017-07-09] MEDS: Calcium Carb/Vit D 500 mg/200 U Tab PO SCH (14:57)
--- NOTE | 2017-07-09 16:01 | General Progress Note ---
Objective - Results Result Diagrams: 07/09/17 06:10 07/09/17 06:10 Recent Labs: Laboratory Last Values WBC 6.1 Th/cmm (4.8-10.8) 07/09/17 06:10 RBC 4.15 Mil/cmm (4.30-5.70) L 07/09/17 06:10 Hgb 14.2 gm/dL (12-16) 07/09/17 06:10 Hct 41.5 % (41.0-60) 07/09/17 06:10 MCV 99.9 fl (80-99) H 07/09/17 06:10 MCH 34.2 pg (26.0-30.0) H 07/09/17 06:10 MCHC Differential 34.2 pg (28.0-36.0) 07/09/17 06:10 RDW 13.1 % (11.5-20.0) 07/09/17 06:10 Plt Count 104 Th/cmm (150-400) L 07/09/17 06:10 MPV 8.5 fl 07/09/17 06:10 Neutrophils % 63.1 % (40.0-80.0) 07/08/17 12:35 Lymphocytes % 24.4 % (20.0-50.0) 07/08/17 12:35 Monocytes % 11.4 % (2.0-10.0) H 07/08/17 12:35 Eosinophils % 0.6 % (0.0-5.0) 07/08/17 12:35 Basophils % 0.5 % (0.0-2.0) 07/08/17 12:35 Neutrophils (Manual) 53 % (40-80) 07/09/17 06:10 Lymphocytes 30 % (20-50) 07/09/17 06:10 Monocytes 15 % (2-10) H 07/09/17 06:10 Eosinophils 2 % (0-5) 07/09/17 06:10 Platelet Estimate DECREASED PLATELETS (NORMAL) 07/09/17 06:10 Specimen Source Arterial 07/09/17 09:47 Sample Site Right Radial 07/09/17 09:47 pH 7.45 (7.35-7.45) 07/09/17 09:47 pCO2 36.0 mmHg (35.0-45.0) 07/09/17 09:47 pO2 74.0 mmHg (80.0-100.0) L 07/09/17 09:47 HCO3 25.8 mEq/L (20.0-26.0) 07/09/17 09:47 Base Excess 1.2 mEq/L (-3.0-3.0) 07/09/17 09:47 O2 Saturation 95.0 % (92.0-100.0) 07/09/17 09:47 Reji Test Positive 07/09/17 09:47 Vent Rate NA 07/09/17 09:47 Inspired O2 21 07/09/17 09:47 Tidal Volume NA 07/09/17 09:47 PEEP NA 07/09/17 09:47 Pressure (ins/psv/peep) NA 07/09/17 09:47 Critical Value LZHANG 07/09/17 09:47 Sodium 123 mEq/L (136-145) L 07/09/17 06:10 Potassium 3.8 mEq/L (3.5-5.1) 07/09/17 06:10 Chloride 92 mEq/L (98-107) L 07/09/17 06:10 Carbon Dioxide 24.2 mEq/L (21.0-31.0) 07/09/17 06:10 Anion Gap 10.6 (7.0-16.0) 07/09/17 06:10 BUN 11 mg/dL (7-25) 07/09/17 06:10 Creatinine 0.7 mg/dL (0.7-1.3) 07/09/17 06:10 Est GFR ( Amer) > 60.0 ml/min (>90) 07/09/17 06:10 Est GFR (Non-Af Amer) > 60.0 ml/min 07/09/17 06:10 BUN/Creatinine Ratio 15.7 07/09/17 06:10 Glucose 76 mg/dL (70-105) 07/09/17 06:10 POC Glucose 99 MG/DL (70 - 105) 07/08/17 12:21 Uric Acid 2.5 mg/dL (4.4-7.6) L 07/08/17 12:35 Calcium 8.8 mg/dL (8.6-10.3) 07/09/17 06:10 Magnesium 1.8 mg/dL (1.9-2.7) L 07/09/17 06:10 Total Bilirubin 0.5 mg/dL (0.3-1.0) 07/09/17 06:10 Direct Bilirubin 0.15 mg/dL (0.0-0.2) 07/09/17 06:10 AST 15 U/L (13-39) 07/09/17 06:10 ALT 10 U/L (7-52) 07/09/17 06:10 Alkaline Phosphatase 55 U/L (34-104) 07/09/17 06:10 Ammonia 86 umol/L (16-53) H 07/09/17 06:10 Total Protein 6.2 gm/dL (6.0-8.3) 07/09/17 06:10 Albumin 3.5 gm/dL (4.2-5.5) L 07/09/17 06:10 Globulin 2.7 gm/dL 07/09/17 06:10 Albumin/Globulin Ratio 1.3 (1.0-1.8) 07/09/17 06:10 Valproic Acid 116.1 ug/mL (50.0-100.0) H 07/08/17 12:35 Carbamazepine < 2.0 ug/ml (4.0-12.0) L 07/08/17 12:35 - Physical Exam Vitals and I&O: Vital Signs Temp 97.5 F 07/09/17 08:00 Pulse 69 07/09/17 15:43 Resp 18 07/09/17 15:43 BP 141/62 07/09/17 10:09 Pulse Ox 97 07/09/17 15:43 Intake & Output 07/08/17 07/09/17 07/09/17 18:59 06:59 18:59 Intake Total 440 Balance 440 Weight (lbs) 89.811 kg 89.811 kg Intake: Oral 440 Other: # Bowel Movements 2 Weight Source Bedscale Estimated Active Medications: Current Medications Acetaminophen (Tylenol) 650 mg PO Q6H PRN PRN Reason: Pain (Mild) Stop: 09/07/17 02:00 Albuterol/Ipratropium (Duoneb Neb) 3 ml HHN Q6HRT JONATHAN Stop: 09/07/17 00:59 Last Admin: 07/09/17 15:40 Dose: 3 ml Atenolol (Tenormin) 25 mg PO DAILY JONATHAN Stop: 09/07/17 08:59 Last Admin: 07/09/17 10:09 Dose: 25 mg Benztropine Mesylate (Cogentin) 2 mg PO BID JONATHAN Stop: 09/07/17 08:59 Last Admin: 07/09/17 10:08 Dose: 2 mg Bisacodyl (Dulcolax 5 Mg Ec Tab) 5 mg PO BID JONATHAN Stop: 09/07/17 08:59 Last Admin: 07/09/17 10:08 Dose: 5 mg Budesonide (Pulmicort) 0.5 mg HHN BIDRT JONATHAN Stop: 09/07/17 06:59 Last Admin: 07/09/17 07:39 Dose: 0.5 mg Buspirone HCl (Buspar) 5 mg PO BID JONATHAN Stop: 09/07/17 08:59 Last Admin: 07/09/17 14:57 Dose: 5 mg Calcium/Vitamin D (Oscal W/Vitamin D) 1 tab PO DAILY JONATHAN Stop: 09/07/17 08:59 Last Admin: 07/09/17 14:57 Dose: 1 tab Docusate Sodium (Colace) 100 mg PO BID JONATHAN Stop: 09/07/17 08:59 Last Admin: 07/09/17 10:09 Dose: 100 mg Fluoxetine HCl (Prozac) 20 mg PO DAILY JONATHAN PRN Reason: Protocol Stop: 09/07/17 08:59 Last Admin: 07/09/17 14:57 Dose: 20 mg Sodium Chloride (Nacl 0.9%) 1,000 mls @ 15 mls/hr IV .Q24H JONATHAN Stop: 09/06/17 18:54 Last Admin: 07/08/17 20:27 Dose: 15 mls/hr Sodium Chloride (Hypertonic 3%) 500 mls @ 30 mls/hr IV X1 ONE Stop: 07/10/17 03:39 Last Admin: 07/09/17 13:19 Dose: 30 mls/hr Levetiracetam (Keppra) 1,500 mg PO BID JONATHAN Stop: 09/07/17 08:59 Last Admin: 07/09/17 10:07 Dose: 1,500 mg Levothyroxine Sodium (Synthroid) 0.125 mg PO DAILY JONATHAN Stop: 09/07/17 08:59 Last Admin: 07/09/17 10:20 Dose: 0.125 mg Magnesium Hydroxide (Milk Of Magnesia) 30 ml PO DAILY PRN PRN Reason: Constipation Stop: 09/06/17 20:14 Miscellaneous (Lurasidone Hcl [Latuda]) 40 mg PO HS [facility] Stop: 09/06/17 20:59 Oxcarbazepine (Trileptal) 600 mg PO BID JONATHAN Stop: 09/07/17 08:59 Last Admin: 07/09/17 10:20 Dose: 600 mg Pantoprazole Sodium (Protonix) 40 mg PO QDAC JONATHAN Stop: 09/07/17 07:29 Last Admin: 07/09/17 06:43 Dose: 40 mg Phenyleph/Shark Oil/Glycerin/Petrol (Preparation-H) 1 appl TP QID [facility] Stop: 09/06/17 20:59 Last Admin: 07/09/17 14:56 Dose: 1 appl Psyllium Hydrophilic Mucilloid (Metamucil) 1 pkt PO DAILY JONATHAN Stop: 09/07/17 08:59 Last Admin: 07/09/17 14:57 Dose: Not Given Sodium Chloride (Nacl Tab) 1 gm PO TID [facility] Stop: 09/06/17 20:59 Last Admin: 07/09/17 14:59 Dose: Not Given Tamsulosin HCl (Flomax) 0.4 mg PO DAILY [facility] Stop: 09/07/17 08:59 Last Admin: 07/09/17 14:56 Dose: 0.4 mg
--- NOTE | 2017-07-09 22:30 | Progress Notes ---
DATE: 07/09/2017 PULMONARY PROGRESS NOTE PROBLEM LIST: 1. Underlying physically and mentally challenged issue. 2. Severe hyponatremia. 3. Question bronchitis. 4. Severe obstructive sleep apnea syndrome with morbid obesity SUBJECTIVE: The patient is okay, offers no specific new symptoms. PHYSICAL EXAMINATION: VITAL SIGNS: T-max 97.5, blood pressure 141/72, saturation is 95% on room air. NECK: Veins not visualized. Good bilateral carotid upstroke. CHEST: Shows diminished air entry. No other adventitious breath sounds. HEART: Regular. ABDOMEN: Soft, nontender. LABORATORY DATA: The patient's white count is 14.2 and monocytes is 5. ABG, pO2 is 74 and the patient's sodium is 123 and magnesium is 1.8. The patient's valproic acid is 116, which is high. ASSESSMENT: The patient is clinically stable, improving hyponatremia. PLANS AND SUGGESTIONS: Continue current treatment. We will follow through other studies, etc. in next day or 2. JOB# [id number]
--- NOTE | 2017-07-09 23:24 | History & Physical ---
ADMIT DATE: 07/08/2017 HISTORY OF PRESENT ILLNESS: The patient came to the Emergency Room, a 61-year-old male patient, apparently has been less alert than before and altered. The patient had a grand mal seizure ____ while lasted for 3 minutes and was brought in and apparently known to have history of subarachnoid hemorrhage and had a CAT scan and also her electrolyte imbalance was admitted. REVIEW OF SYSTEMS: Basically has a seizure. No fever, no chills. No earache, no sore throat. Otherwise, negative. PHYSICAL EXAMINATION: GENERAL: Awake, well-developed, well-nourished male patient. VITAL SIGNS: Stable. HEAD: Normal. ENT: Normal. NECK: Supple, nontender. LUNGS: Clear. CARDIOVASCULAR SYSTEM: S1, S2 heard. ABDOMEN: Soft. LABORATORY DATA: His white count was 6.8 and hemoglobin was 14.6. His electrolytes are abnormal for sodium was 120 and the patient otherwise was okay. The patient with a diagnosis of altered level of consciousness, severe electrolyte imbalance and severe headaches and the patient is being admitted and the patient will continue his seizure medication. I will have Neurology see the patient and also have Nephrology see the patient and I will follow the patient closely. DIAGNOSES: 1. Severe hyponatremia. 2. Toxic metabolic encephalopathy. 3. Seizures. 4. History of seizure disorder. PLAN: The patient will have Neurology and Nephrology workup and I will follow the patient. JOB# [id number]
[2017-07-10] MEDS: Albuterol/Ipratropium Neb 3 ML AERS HHN SCH ×4 (00:57→19:40)
[2017-07-10 06:38] LABS: EOSINOPHILE ABSOLUTE 0.1 Th/cmm (0.1-0.4); HEMATOCRIT 41.5 % (41.0-60); HEMOGLOBIN 14.2 gm/dL (12-16); LYMPHOCYTE ABSOLUTE 1.6 Th/cmm (1.5-3.0); MEAN CELL VOLUME 98.6 fl (80-99); MEAN CORPUSCULAR HEMOGLOBIN 33.8 pg (26.0-30.0); MEAN CORPUSCULAR HGB CONC 34.3 pg (28.0-36.0); MEAN PLATELET VOLUME 8.6 fl; MONOCYTE ABSOLUTE 1.2 Th/cmm (0.3-1.0); NEUTROPHILE ABSOLUTE 4.1 Th/cmm (1.8-8.0); PLATELET COUNT 106 Th/cmm (150-400); RED CELL DISTRIBUTION WIDTH 12.7 % (11.5-20.0)
[2017-07-10 06:42] LABS: % EOSINOPHILS 1.7 % (0.0-5.0); % LYMPHOCYTES 22.9 % (20.0-50.0); % MONOCYTES 16.6 % (2.0-10.0); % NEUTROPHILS 58.5 % (40.0-80.0)
[2017-07-10 06:43] LABS: % BASOPHILS 0.3 % (0.0-2.0)
[2017-07-10 06:50] LABS: ALB/GLOB RATIO 1.3 (1.0-1.8); ALBUMIN 3.5 gm/dL (4.2-5.5); ALKALINE PHOSPHATASE 58 U/L (34-104); ANION GAP 11.2 (7.0-16.0); BILIRUBIN,TOTAL 0.4 mg/dL (0.3-1.0); BUN - UREA NITROGEN 10 mg/dL (7-25); CALCIUM SERUM 8.8 mg/dL (8.6-10.3); CARBON DIOXIDE 22.6 mEq/L (21.0-31.0); CHLORIDE 91 mEq/L (98-107); CREATININE - SERUM 0.7 mg/dL (0.7-1.3); GFR AFRICAN-AMERICAN > 60.0 ml/min (>90); GFR NON AFRICAN-AMERICAN > 60.0 ml/min; GLUCOSE 83 mg/dL (70-105); POTASSIUM SERUM 3.8 mEq/L (3.5-5.1); SGOT 17 U/L (13-39); SGPT/ALT 9 U/L (7-52); SODIUM SERUM 121 mEq/L (136-145); TOTAL PROTEIN,SERUM 6.3 gm/dL (6.0-8.3)
[2017-07-10] MEDS: Budesonide 0.5 Mg/2 mL Ud HHN SCH ×2 (07:29→19:40)
[2017-07-10] MEDS ORDERED: Sodium Chloride 3% 300 ML IV ONE (10:47)
[2017-07-10] MEDS: Pantoprazole 40 mg EC Tab PO SCH (10:49)
[2017-07-10] MEDS: Benztropine 1 MG TAB PO SCH ×2 (10:50→17:55)
[2017-07-10] MEDS: Magnesium Hydroxide (MOM) 30 mL UDC PO PRN ×2 (10:50→10:53)
[2017-07-10] MEDS: Levothyroxine 0.125 Mg Tab PO SCH (10:51)
[2017-07-10] MEDS: Calcium Carb/Vit D 500 mg/200 U Tab PO SCH (11:17)
[2017-07-10 12:14] LABS: T4 FREE 1.04
[2017-07-10] MEDS: PHENYLEPHRINE TP SCH ×4 (15:28→21:49)
--- NOTE | 2017-07-10 21:35 | General Progress Note ---
Subjective - Review of Systems Service Date: 07/10/17 Subjective: no apparent distress Objective - Results Result Diagrams: 07/10/17 05:10 07/10/17 05:10 Recent Labs: Laboratory Last Values WBC 7.0 Th/cmm (4.8-10.8) 07/10/17 05:10 RBC 4.20 Mil/cmm (4.30-5.70) L 07/10/17 05:10 Hgb 14.2 gm/dL (12-16) 07/10/17 05:10 Hct 41.5 % (41.0-60) 07/10/17 05:10 MCV 98.6 fl (80-99) 07/10/17 05:10 MCH 33.8 pg (26.0-30.0) H 07/10/17 05:10 MCHC Differential 34.3 pg (28.0-36.0) 07/10/17 05:10 RDW 12.7 % (11.5-20.0) 07/10/17 05:10 Plt Count 106 Th/cmm (150-400) L 07/10/17 05:10 MPV 8.6 fl 07/10/17 05:10 Neutrophils % 58.5 % (40.0-80.0) 07/10/17 05:10 Lymphocytes % 22.9 % (20.0-50.0) 07/10/17 05:10 Monocytes % 16.6 % (2.0-10.0) H 07/10/17 05:10 Eosinophils % 1.7 % (0.0-5.0) 07/10/17 05:10 Basophils % 0.3 % (0.0-2.0) 07/10/17 05:10 Neutrophils (Manual) 53 % (40-80) 07/09/17 06:10 Lymphocytes 30 % (20-50) 07/09/17 06:10 Monocytes 15 % (2-10) H 07/09/17 06:10 Eosinophils 2 % (0-5) 07/09/17 06:10 Platelet Estimate DECREASED PLATELETS (NORMAL) 07/09/17 06:10 Specimen Source Arterial 07/09/17 09:47 Sample Site Right Radial 07/09/17 09:47 pH 7.45 (7.35-7.45) 07/09/17 09:47 pCO2 36.0 mmHg (35.0-45.0) 07/09/17 09:47 pO2 74.0 mmHg (80.0-100.0) L 07/09/17 09:47 HCO3 25.8 mEq/L (20.0-26.0) 07/09/17 09:47 Base Excess 1.2 mEq/L (-3.0-3.0) 07/09/17 09:47 O2 Saturation 95.0 % (92.0-100.0) 07/09/17 09:47 Reji Test Positive 07/09/17 09:47 Vent Rate NA 07/09/17 09:47 Inspired O2 21 07/09/17 09:47 Tidal Volume NA 07/09/17 09:47 PEEP NA 07/09/17 09:47 Pressure (ins/psv/peep) NA 07/09/17 09:47 Critical Value LZHANG 07/09/17 09:47 Sodium 121 mEq/L (136-145) L 07/10/17 05:10 Potassium 3.8 mEq/L (3.5-5.1) 07/10/17 05:10 Chloride 91 mEq/L (98-107) L 07/10/17 05:10 Carbon Dioxide 22.6 mEq/L (21.0-31.0) 07/10/17 05:10 Anion Gap 11.2 (7.0-16.0) 07/10/17 05:10 BUN 10 mg/dL (7-25) 07/10/17 05:10 Creatinine 0.7 mg/dL (0.7-1.3) 07/10/17 05:10 Est GFR ( Amer) > 60.0 ml/min (>90) 07/10/17 05:10 Est GFR (Non-Af Amer) > 60.0 ml/min 07/10/17 05:10 BUN/Creatinine Ratio 14.3 07/10/17 05:10 Glucose 83 mg/dL (70-105) 07/10/17 05:10 POC Glucose 99 MG/DL (70 - 105) 07/08/17 12:21 Plasma/Ser Osmolality 257 07/08/17 12:35 Uric Acid 2.5 mg/dL (4.4-7.6) L 07/08/17 12:35 Calcium 8.8 mg/dL (8.6-10.3) 07/10/17 05:10 Magnesium 1.8 mg/dL (1.9-2.7) L 07/09/17 06:10 Total Bilirubin 0.4 mg/dL (0.3-1.0) 07/10/17 05:10 Direct Bilirubin 0.15 mg/dL (0.0-0.2) 07/09/17 06:10 AST 17 U/L (13-39) 07/10/17 05:10 ALT 9 U/L (7-52) 07/10/17 05:10 Alkaline Phosphatase 58 U/L (34-104) 07/10/17 05:10 Ammonia 86 umol/L (16-53) H 07/09/17 06:10 Total Protein 6.3 gm/dL (6.0-8.3) 07/10/17 05:10 Albumin 3.5 gm/dL (4.2-5.5) L 07/10/17 05:10 Globulin 2.8 gm/dL 07/10/17 05:10 Albumin/Globulin Ratio 1.3 (1.0-1.8) 07/10/17 05:10 Free T4 1.04 07/09/17 06:10 Free T3 2.5 07/09/17 06:10 Valproic Acid 116.1 ug/mL (50.0-100.0) H 07/08/17 12:35 Carbamazepine < 2.0 ug/ml (4.0-12.0) L 07/08/17 12:35 - Physical Exam Vitals and I&O: Vital Signs Temp 97.8 F 07/10/17 20:00 Pulse 75 07/10/17 20:00 Resp 18 07/10/17 20:00 BP 140/95 07/10/17 20:00 Pulse Ox 94 07/10/17 20:00 Intake & Output 07/10/17 07/10/17 07/11/17 06:59 18:59 06:59 Intake Total 450 800 Output Total 650 700 Balance -200 100 Weight (lbs) 89.811 kg 89.811 kg Intake: Oral 450 800 Output: Urine 650 700 Other: # Voids 3 # Bowel Movements 1 0 Weight Source Bedscale Bedscale Active Medications: Current Medications Acetaminophen (Tylenol) 650 mg PO Q6H PRN PRN Reason: Pain (Mild) Stop: 09/07/17 02:00 Last Admin: 07/10/17 20:12 Dose: 650 mg Albuterol/Ipratropium (Duoneb Neb) 3 ml HHN Q6HRT [facility] Stop: 09/07/17 00:59 Last Admin: 07/10/17 19:40 Dose: 3 ml Atenolol (Tenormin) 25 mg PO DAILY [facility] Stop: 09/07/17 08:59 Last Admin: 07/10/17 10:49 Dose: 25 mg Benztropine Mesylate (Cogentin) 2 mg PO BID [facility] Stop: 09/07/17 08:59 Last Admin: 07/10/17 17:55 Dose: 2 mg Bisacodyl (Dulcolax 5 Mg Ec Tab) 5 mg PO BID [facility] Stop: 09/07/17 08:59 Last Admin: 07/10/17 17:56 Dose: 5 mg Budesonide (Pulmicort) 0.5 mg HHN BIDRT [facility] Stop: 09/07/17 06:59 Last Admin: 07/10/17 19:40 Dose: 0.5 mg Buspirone HCl (Buspar) 5 mg PO BID [facility] Stop: 09/07/17 08:59 Last Admin: 07/10/17 17:56 Dose: 5 mg Calcium/Vitamin D (Oscal W/Vitamin D) 1 tab PO DAILY [facility] Stop: 09/07/17 08:59 Last Admin: 07/10/17 11:17 Dose: 1 tab Docusate Sodium (Colace) 100 mg PO BID [facility] Stop: 09/07/17 08:59 Last Admin: 07/10/17 17:56 Dose: 100 mg Fluoxetine HCl (Prozac) 20 mg PO DAILY [facility] PRN Reason: Protocol Stop: 09/07/17 08:59 Last Admin: 07/10/17 15:31 Dose: 20 mg Sodium Chloride (Nacl 0.9%) 1,000 mls @ 15 mls/hr IV .Q24H [facility] Stop: 09/06/17 18:54 Last Admin: 07/08/17 20:27 Dose: 15 mls/hr Levetiracetam (Keppra) 1,500 mg PO BID [facility] Stop: 09/07/17 08:59 Last Admin: 07/10/17 17:56 Dose: 1,500 mg Levothyroxine Sodium (Synthroid) 0.125 mg PO DAILY [facility] Stop: 09/07/17 08:59 Last Admin: 07/10/17 10:51 Dose: 0.125 mg Magnesium Hydroxide (Milk Of Magnesia) 30 ml PO DAILY PRN PRN Reason: Constipation Stop: 09/06/17 20:14 Last Admin: 07/10/17 10:53 Dose: 30 ml Miscellaneous (Lurasidone Hcl [Latuda]) 40 mg PO HS [facility] Stop: 09/06/17 20:59 Oxcarbazepine (Trileptal) 600 mg PO BID [facility] Stop: 09/07/17 08:59 Last Admin: 07/10/17 17:56 Dose: 600 mg Pantoprazole Sodium (Protonix) 40 mg PO QDAC [facility] Stop: 09/07/17 07:29 Last Admin: 07/10/17 10:49 Dose: 40 mg Phenyleph/Shark Oil/Glycerin/Petrol (Preparation-H) 1 appl TP QID [facility] Stop: 09/06/17 20:59 Last Admin: 07/10/17 17:59 Dose: Not Given Psyllium Hydrophilic Mucilloid (Metamucil) 1 pkt PO DAILY [facility] Stop: 09/07/17 08:59 Last Admin: 07/10/17 10:52 Dose: 1 pkt Sodium Chloride (Nacl Tab) 1 gm PO TID [facility] Stop: 09/06/17 20:59 Last Admin: 07/10/17 15:31 Dose: 1 gm Tamsulosin HCl (Flomax) 0.4 mg PO DAILY [facility] Stop: 09/07/17 08:59 Last Admin: 07/10/17 10:50 Dose: 0.4 mg General: No acute distress HEENT: Atraumatic Neck: Supple Cardiovascular: Regular rate Lungs: Clear to auscultation Abdomen: Bowel sounds, Soft Assessment/Plan - Assessment Assessment: severe hypernatremia toxic metabolic encephalopathy seizures - Plan Plan: monitor electrolytes cpm
--- NOTE | 2017-07-10 21:55 | Progress Notes ---
DATE: 07/10/2017 PULMONARY PROGRESS NOTE PROBLEM LIST: 1. Mild respiratory bronchitis. 2. Obstructive sleep apnea syndrome. 3. Hyponatremia. 4. Morbid obesity with underlying mentally poorly developed status. SYMPTOMS: Nil. Says feeling okay, offers no specific new symptoms. PHYSICAL EXAMINATION: VITAL SIGNS: Temperature is 97.3, blood pressure 140/87. NECK: Veins not visualized. CHEST: Shows diminished air entry without much of adventitious breath sounds. HEART: Regular. ABDOMEN: Distended, soft, nontender. LABORATORY DATA: White count is 7000. ABG, pO2 is 74 on room air and sodium is still on the lower side. ASSESSMENT: The patient is clinically stable with persistent hyponatremia, possibly syndrome of inappropriate antidiuretic hormone secretion. PLANS AND SUGGESTIONS: We will go ahead and continue current treatment and if his symptoms persist, we have to consider putting ____ treatment, etc., and go from there. JOB# [id number]
[2017-07-11] MEDS: Albuterol/Ipratropium Neb 3 ML AERS HHN SCH ×4 (01:41→19:57)
[2017-07-11] MEDS: Sodium Chloride 0.9% 1,000 ML IV SCH (05:41)
[2017-07-11] MEDS: Budesonide 0.5 Mg/2 mL Ud HHN SCH ×2 (06:53→19:57)
[2017-07-11 07:13] LABS: ANION GAP 11.2 (7.0-16.0); BUN - UREA NITROGEN 11 mg/dL (7-25); CALCIUM SERUM 9.1 mg/dL (8.6-10.3); CARBON DIOXIDE 19.9 mEq/L (21.0-31.0); CHLORIDE 93 mEq/L (98-107); CREATININE - SERUM 0.8 mg/dL (0.7-1.3); GFR AFRICAN-AMERICAN > 60.0 ml/min (>90); GFR NON AFRICAN-AMERICAN > 60.0 ml/min; GLUCOSE 89 mg/dL (70-105); POTASSIUM SERUM 4.1 mEq/L (3.5-5.1); URIC ACID 2.4 mg/dL (4.4-7.6)
[2017-07-11] MEDS: Pantoprazole 40 mg EC Tab PO SCH (07:49)
[2017-07-11 08:10] LABS: SODIUM SERUM 120 mEq/L (136-145)
[2017-07-11 08:32] LABS: URINE MICROSCOPIC INDICATED? YES; URINE SOURCE MIDSTREAM
[2017-07-11 08:35] LABS: URINE BILIRUBIN NEGATIVE (NEGATIVE); URINE BLOOD NEGATIVE (NEGATIVE); URINE GLUCOSE (UA) NEGATIVE (NEGATIVE); URINE KETONE NEGATIVE (NEGATIVE); URINE LEUKOCYTE ESTERASE NEGATIVE (NEGATIVE); URINE NITRATE NEGATIVE (NEGATIVE); URINE PH 8.5 (4.6 - 8.0); URINE PROTEIN NEGATIVE (NEGATIVE); URINE UROBILINOGEN 0.2 E.U./dL (0.2 - 1.0)
[2017-07-11 08:41] LABS: URINE CLARITY CLEAR (CLEAR); URINE COLOR YELLOW
[2017-07-11 08:42] LABS: URINE BACTERIA FEW /hpf (NONE SEEN); URINE EPITHELIAL CELLS RARE /lpf (FEW); URINE RBC NONE SEEN /hpf (0-5); URINE WBC 0-2 /hpf (0-5)
[2017-07-11] MEDS: Calcium Carb/Vit D 500 mg/200 U Tab PO SCH (08:46)
[2017-07-11] MEDS: Benztropine 1 MG TAB PO SCH ×2 (08:46→16:29)
[2017-07-11] MEDS: Levothyroxine 0.125 Mg Tab PO SCH (08:47)
[2017-07-11] MEDS: PHENYLEPHRINE TP SCH ×4 (08:50→21:18)
--- NOTE | 2017-07-11 21:35 | Progress Notes ---
DATE: 07/11/2017 PULMONARY PROGRESS NOTE PROBLEM LIST: 1. Hyponatremia. 2. Suspect sleep apnea syndrome. 3. Mild degree of tracheobronchitis. SYMPTOMS: Nil, feeling okay, offers no specific new symptomatology. No coughing or wheezing. Undergoing some breathing treatment at this time. PHYSICAL EXAMINATION: VITAL SIGNS: Recorded vitals, temperature is 98.0, blood pressure 111/74, and saturation is mid 90s to low 90s on room air. NECK: Veins not visualized. CHEST: Shows diminished air entry with occasional secretory noise. ABDOMEN: Soft and nontender. EXTREMITIES: Shows no peripheral edema. LABORATORY DATA: Sodium is 120. ASSESSMENT: The patient clinically appears to be unchanged with persistent hyponatremia. PLANS AND SUGGESTIONS: We will leave it up to [facility] for possibly ____ or some other ____ treatment to increase his sodium and go from there. JOB# [id number]
[2017-07-12] MEDS: Albuterol/Ipratropium Neb 3 ML AERS HHN SCH ×4 (01:37→19:28)
[2017-07-12] MEDS: Budesonide 0.5 Mg/2 mL Ud HHN SCH ×2 (06:45→19:27)
[2017-07-12] MEDS: Pantoprazole 40 mg EC Tab PO SCH (07:06)
[2017-07-12 07:20] LABS: % BASOPHILS 0.3 % (0.0-2.0); % EOSINOPHILS 2.2 % (0.0-5.0); % LYMPHOCYTES 23.4 % (20.0-50.0); % MONOCYTES 13.6 % (2.0-10.0); % NEUTROPHILS 60.5 % (40.0-80.0); EOSINOPHILE ABSOLUTE 0.2 Th/cmm (0.1-0.4); HEMATOCRIT 40.9 % (41.0-60); HEMOGLOBIN 13.9 gm/dL (12-16); LYMPHOCYTE ABSOLUTE 2.2 Th/cmm (1.5-3.0); MEAN CELL VOLUME 100.6 fl (80-99); MEAN CORPUSCULAR HEMOGLOBIN 34.1 pg (26.0-30.0); MEAN CORPUSCULAR HGB CONC 33.9 pg (28.0-36.0); MEAN PLATELET VOLUME 8.4 fl; MONOCYTE ABSOLUTE 1.3 Th/cmm (0.3-1.0); NEUTROPHILE ABSOLUTE 5.6 Th/cmm (1.8-8.0); PLATELET COUNT 114 Th/cmm (150-400); RED BLOOD COUNT 4.07 Mil/cmm (4.30-5.70); WHITE BLOOD COUNT 9.3 Th/cmm (4.8-10.8)
[2017-07-12 07:51] LABS: ALB/GLOB RATIO 1.3 (1.0-1.8); ALBUMIN 3.5 gm/dL (4.2-5.5); ALKALINE PHOSPHATASE 52 U/L (34-104); ANION GAP 9.2 (7.0-16.0); BILIRUBIN,TOTAL 0.7 mg/dL (0.3-1.0); BUN - UREA NITROGEN 20 mg/dL (7-25); CALCIUM SERUM 8.7 mg/dL (8.6-10.3); CARBON DIOXIDE 22.6 mEq/L (21.0-31.0); CHLORIDE 93 mEq/L (98-107); CREATININE - SERUM 0.8 mg/dL (0.7-1.3); GFR AFRICAN-AMERICAN > 60.0 ml/min (>90); GFR NON AFRICAN-AMERICAN > 60.0 ml/min; GLUCOSE 80 mg/dL (70-105); POTASSIUM SERUM 3.8 mEq/L (3.5-5.1); SGOT 18 U/L (13-39); SGPT/ALT 14 U/L (7-52); SODIUM SERUM 121 mEq/L (136-145); TOTAL PROTEIN,SERUM 6.2 gm/dL (6.0-8.3)
[2017-07-12 07:56] VITALS: BP 156/97
[2017-07-12] MEDS: Calcium Carb/Vit D 500 mg/200 U Tab PO SCH (08:08)
[2017-07-12] MEDS: Benztropine 1 MG TAB PO SCH ×2 (08:08→16:44)
[2017-07-12] MEDS: Levothyroxine 0.125 Mg Tab PO SCH (08:09)
[2017-07-12] MEDS: PHENYLEPHRINE TP SCH ×4 (08:09→21:12)
--- NOTE | 2017-07-12 11:36 | General Progress Note ---
Subjective - Review of Systems Events since last encounter: in no acute distress Subjective: no apparent distress Objective - Results Result Diagrams: 07/12/17 05:45 07/12/17 05:45 Recent Labs: Laboratory Last Values WBC 9.3 Th/cmm (4.8-10.8) 07/12/17 05:45 RBC 4.07 Mil/cmm (4.30-5.70) L 07/12/17 05:45 Hgb 13.9 gm/dL (12-16) 07/12/17 05:45 Hct 40.9 % (41.0-60) L 07/12/17 05:45 MCV 100.6 fl (80-99) H 07/12/17 05:45 MCH 34.1 pg (26.0-30.0) H 07/12/17 05:45 MCHC Differential 33.9 pg (28.0-36.0) 07/12/17 05:45 RDW 13.0 % (11.5-20.0) 07/12/17 05:45 Plt Count 114 Th/cmm (150-400) L 07/12/17 05:45 MPV 8.4 fl 07/12/17 05:45 Neutrophils % 60.5 % (40.0-80.0) 07/12/17 05:45 Lymphocytes % 23.4 % (20.0-50.0) 07/12/17 05:45 Monocytes % 13.6 % (2.0-10.0) H 07/12/17 05:45 Eosinophils % 2.2 % (0.0-5.0) 07/12/17 05:45 Basophils % 0.3 % (0.0-2.0) 07/12/17 05:45 Neutrophils (Manual) 53 % (40-80) 07/09/17 06:10 Lymphocytes 30 % (20-50) 07/09/17 06:10 Monocytes 15 % (2-10) H 07/09/17 06:10 Eosinophils 2 % (0-5) 07/09/17 06:10 Platelet Estimate DECREASED PLATELETS (NORMAL) 07/09/17 06:10 Specimen Source Arterial 07/09/17 09:47 Sample Site Right Radial 07/09/17 09:47 pH 7.45 (7.35-7.45) 07/09/17 09:47 pCO2 36.0 mmHg (35.0-45.0) 07/09/17 09:47 pO2 74.0 mmHg (80.0-100.0) L 07/09/17 09:47 HCO3 25.8 mEq/L (20.0-26.0) 07/09/17 09:47 Base Excess 1.2 mEq/L (-3.0-3.0) 07/09/17 09:47 O2 Saturation 95.0 % (92.0-100.0) 07/09/17 09:47 Reji Test Positive 07/09/17 09:47 Vent Rate NA 07/09/17 09:47 Inspired O2 21 07/09/17 09:47 Tidal Volume NA 07/09/17 09:47 PEEP NA 07/09/17 09:47 Pressure (ins/psv/peep) NA 07/09/17 09:47 Critical Value LZHANG 07/09/17 09:47 Sodium 121 mEq/L (136-145) L 07/12/17 05:45 Potassium 3.8 mEq/L (3.5-5.1) 07/12/17 05:45 Chloride 93 mEq/L (98-107) L 07/12/17 05:45 Carbon Dioxide 22.6 mEq/L (21.0-31.0) 07/12/17 05:45 Anion Gap 9.2 (7.0-16.0) 07/12/17 05:45 BUN 20 mg/dL (7-25) 07/12/17 05:45 Creatinine 0.8 mg/dL (0.7-1.3) 07/12/17 05:45 Est GFR ( Amer) > 60.0 ml/min (>90) 07/12/17 05:45 Est GFR (Non-Af Amer) > 60.0 ml/min 07/12/17 05:45 BUN/Creatinine Ratio 25.0 07/12/17 05:45 Glucose 80 mg/dL (70-105) 07/12/17 05:45 POC Glucose 99 MG/DL (70 - 105) 07/08/17 12:21 Plasma/Ser Osmolality 257 07/08/17 12:35 Uric Acid 2.4 mg/dL (4.4-7.6) L 07/11/17 05:15 Calcium 8.7 mg/dL (8.6-10.3) 07/12/17 05:45 Magnesium 1.8 mg/dL (1.9-2.7) L 07/09/17 06:10 Total Bilirubin 0.7 mg/dL (0.3-1.0) 07/12/17 05:45 Direct Bilirubin 0.15 mg/dL (0.0-0.2) 07/09/17 06:10 AST 18 U/L (13-39) 07/12/17 05:45 ALT 14 U/L (7-52) 07/12/17 05:45 Alkaline Phosphatase 52 U/L (34-104) 07/12/17 05:45 Ammonia 86 umol/L (16-53) H 07/09/17 06:10 Total Protein 6.2 gm/dL (6.0-8.3) 07/12/17 05:45 Albumin 3.5 gm/dL (4.2-5.5) L 07/12/17 05:45 Globulin 2.7 gm/dL 07/12/17 05:45 Albumin/Globulin Ratio 1.3 (1.0-1.8) 07/12/17 05:45 Free T4 1.04 07/09/17 06:10 Free T3 2.5 07/09/17 06:10 Total Cortisol SEE REF. LAB REPORT 07/10/17 12:20 Urine Source MIDSTREAM 07/11/17 08:29 Urine Color YELLOW 07/11/17 08:29 Urine Clarity CLEAR (CLEAR) 07/11/17 08:29 Urine pH 8.5 (4.6 - 8.0) 07/11/17 08:29 Ur Specific [place] 1.015 (1.005-1.030) 07/11/17 08:29 Urine Protein NEGATIVE mg/dL (NEGATIVE) 07/11/17 08:29 Urine Glucose (UA) NEGATIVE mg/dL (NEGATIVE) 07/11/17 08:29 Urine Ketones NEGATIVE mg/dL (NEGATIVE) 07/11/17 08:29 Urine Blood NEGATIVE (NEGATIVE) 07/11/17 08:29 Urine Nitrate NEGATIVE (NEGATIVE) 07/11/17 08:29 Urine Bilirubin NEGATIVE (NEGATIVE) 07/11/17 08:29 Urine Urobilinogen 0.2 E.U./dL (0.2 - 1.0) 07/11/17 08:29 Ur Leukocyte Esterase NEGATIVE (NEGATIVE) 07/11/17 08:29 Urine RBC NONE SEEN /hpf (0-5) 07/11/17 08:29 Urine WBC 0-2 /hpf (0-5) 07/11/17 08:29 Ur Epithelial Cells RARE /lpf (FEW) 07/11/17 08:29 Urine Bacteria FEW /hpf (NONE SEEN) 07/11/17 08:29 Ur Random Sodium 126 mmol/L 07/11/17 08:35 Urine Creatinine 72.0 mg/dl (39.0-259.0) 07/11/17 08:35 Valproic Acid 116.1 ug/mL (50.0-100.0) H 07/08/17 12:35 Carbamazepine < 2.0 ug/ml (4.0-12.0) L 07/08/17 12:35 - Physical Exam Vitals and I&O: Vital Signs Temp 97 F 07/12/17 09:57 Pulse 69 07/12/17 09:57 Resp 20 07/12/17 09:57 BP 135/84 07/12/17 09:57 Pulse Ox 97 07/12/17 09:57 Active Medications: Current Medications Acetaminophen (Tylenol) 650 mg PO Q6H PRN PRN Reason: Pain (Mild) Stop: 09/07/17 02:00 Last Admin: 07/10/17 20:12 Dose: 650 mg Albuterol/Ipratropium (Duoneb Neb) 3 ml HHN Q6HRT [facility] Stop: 09/07/17 00:59 Last Admin: 07/12/17 06:45 Dose: 3 ml Atenolol (Tenormin) 25 mg PO DAILY [facility] Stop: 09/07/17 08:59 Last Admin: 07/12/17 08:08 Dose: 25 mg Benztropine Mesylate (Cogentin) 2 mg PO BID [facility] Stop: 09/07/17 08:59 Last Admin: 07/12/17 08:08 Dose: 2 mg Bisacodyl (Dulcolax 5 Mg Ec Tab) 5 mg PO BID [facility] Stop: 09/07/17 08:59 Last Admin: 07/12/17 08:07 Dose: 5 mg Budesonide (Pulmicort) 0.5 mg HHN BIDRT [facility] Stop: 09/07/17 06:59 Last Admin: 07/12/17 06:45 Dose: 0.5 mg Buspirone HCl (Buspar) 5 mg PO BID [facility] Stop: 09/07/17 08:59 Last Admin: 07/12/17 08:07 Dose: 5 mg Calcium/Vitamin D (Oscal W/Vitamin D) 1 tab PO DAILY [facility] Stop: 09/07/17 08:59 Last Admin: 07/12/17 08:08 Dose: 1 tab Docusate Sodium (Colace) 100 mg PO BID [facility] Stop: 09/07/17 08:59 Last Admin: 07/12/17 08:08 Dose: 100 mg Fluoxetine HCl (Prozac) 20 mg PO DAILY [facility] PRN Reason: Protocol Stop: 09/07/17 08:59 Last Admin: 07/12/17 08:09 Dose: 20 mg Sodium Chloride (Nacl 0.9%) 1,000 mls @ 15 mls/hr IV .Q24H [facility] Stop: 09/06/17 18:54 Last Admin: 07/11/17 05:41 Dose: 15 mls/hr Levetiracetam (Keppra) 1,500 mg PO BID [facility] Stop: 09/07/17 08:59 Last Admin: 07/12/17 08:07 Dose: 1,500 mg Levothyroxine Sodium (Synthroid) 0.125 mg PO DAILY [facility] Stop: 09/07/17 08:59 Last Admin: 07/12/17 08:09 Dose: 0.125 mg Magnesium Hydroxide (Milk Of Magnesia) 30 ml PO DAILY PRN PRN Reason: Constipation Stop: 09/06/17 20:14 Last Admin: 07/10/17 10:53 Dose: 30 ml Oxcarbazepine (Trileptal) 600 mg PO BID [facility] Stop: 09/07/17 08:59 Last Admin: 07/12/17 08:08 Dose: 600 mg Pantoprazole Sodium (Protonix) 40 mg PO QDAC [facility] Stop: 09/07/17 07:29 Last Admin: 07/12/17 07:06 Dose: 40 mg Phenyleph/Shark Oil/Glycerin/Petrol (Preparation-H) 1 appl TP QID [facility] Stop: 09/06/17 20:59 Last Admin: 07/12/17 08:09 Dose: 1 appl Psyllium Hydrophilic Mucilloid (Metamucil) 1 pkt PO DAILY [facility] Stop: 09/07/17 08:59 Last Admin: 07/12/17 08:08 Dose: 1 pkt Sodium Chloride (Nacl Tab) 1 gm PO TID [facility] Stop: 09/06/17 20:59 Last Admin: 07/12/17 08:07 Dose: 1 gm Tamsulosin HCl (Flomax) 0.4 mg PO DAILY [facility] Stop: 09/07/17 08:59 Last Admin: 07/12/17 08:08 Dose: 0.4 mg General: No acute distress HEENT: Atraumatic Neck: Supple Cardiovascular: Regular rate Lungs: Clear to auscultation Abdomen: Bowel sounds, Soft Assessment/Plan - Assessment Assessment: severe hypernatremia toxic metabolic encephalopathy seizures - Plan Plan: monitor electrolytes cpm Nutritional Asmnt/Malnutr-PDOC - Dietary Evaluation Malnutrition Findings (Please click <Entered> for more info): Nutritional Asmnt/Malnutrition Start: 07/11/17 11: 27 Text: Status: Complete Freq: Document 07/11/17 11:27 SILVESTRE (Rec: 07/11/17 11:33 SILVESTRE CALVERT- [email or web address]) Nutritional Asmnt/Malnutrition Patient General Information Diagnosis CP with respiratory distress Pertinent Medical Hx/Surgical Hx subarachnoid hemorrage, CP Subjective Information Pt asleep at time of visit Current Diet Order/ Nutrition Support regular Pertinent Medications bisacodyl, calcium with vit D, colace, synthorid, MOM, protonix, metamucil Pertinent Labs 07/11: Ma 120, K 4.1, Cl 93, BUN 11, Cr 0.8, Ca 9.1, glucose 89 Nutritional Hx/Data Height 1.57 m Height (Calculated Centimeters) 157.5 Current Weight (lbs) 88.451 kg Weight (Calculated Kilograms) 88.5 Weight (Calculated Grams) 32774.5 Body Mass Index (BMI) 35.6 Weight Status Obese GI Symptoms GI Symptoms None Last BM 07/10 Cultural/Ethnic/Religion Belief unknown Usual diet at home regular Skin Integrity/Comment: kody score 16 Current %PO Fair (50-74%) Estimated Nutritional Goals BEE in Kcals: Using Current wt Adj wt of IBW Calories/Kcals/Kg 30+kcals/kg 2/2 CP Kcals Calculated 1860+kcals/day Protein: Adj wt of IBW Protein g/k.2+g/kg 2/2 CP Protein Calculated 74g/day Fluid: ml per MD Nutritional Problem 1. Problem Problem No nutrition diagnosis at this time Intervention/Recommendation Comments Recommend continuing Regular diet Expected Outcomes/Goals Expected Outcomes/Goals PO intake >75% of meals
[2017-07-12] MEDS: Magnesium Hydroxide (MOM) 30 mL UDC PO PRN (13:52)
[2017-07-13] MEDS: Albuterol/Ipratropium Neb 3 ML AERS HHN SCH ×4 (00:39→19:16)
--- NOTE | 2017-07-13 01:33 | Progress Notes ---
DATE: 07/12/2017 PROBLEM LIST: 1. Severe obstructive sleep apnea syndrome. 2. Mild degree of tracheobronchitis. 3. Persistent hyponatremia. SYMPTOMS: Nil since indicating feeling okay. No specific new symptoms. PHYSICAL EXAMINATION: VITAL SIGNS: Temperature is 98.2, blood pressure 140/81. NECK: Veins not visualized. CHEST: Seems to be very clear. No other adventitious breath sounds could be appreciated. LABORATORY DATA: White count is 9300, hemoglobin is okay. Sodium is still 121, not significantly changed. ASSESSMENT: The patient is clinically stable respiratory edmonds, compliant with CPAP; SIADH, persistent hyponatremia relatively asymptomatic. PLANS AND SUGGESTIONS: We will do a sodium correction per casino banker. Continue rest of the respiratory care etc. JOB# [id number]
[2017-07-13] MEDS: Pantoprazole 40 mg EC Tab PO SCH (06:37)
[2017-07-13 07:00] LABS: ANION GAP 10.7 (7.0-16.0); BUN - UREA NITROGEN 17 mg/dL (7-25); CALCIUM SERUM 8.9 mg/dL (8.6-10.3); CARBON DIOXIDE 22.5 mEq/L (21.0-31.0); CHLORIDE 92 mEq/L (98-107); CREATININE - SERUM 0.9 mg/dL (0.7-1.3); GFR AFRICAN-AMERICAN > 60.0 ml/min (>90); GFR NON AFRICAN-AMERICAN > 60.0 ml/min; GLUCOSE 87 mg/dL (70-105); POTASSIUM SERUM 4.2 mEq/L (3.5-5.1); SODIUM SERUM 121 mEq/L (136-145)
[2017-07-13] MEDS: Budesonide 0.5 Mg/2 mL Ud HHN SCH ×2 (07:49→19:16)
[2017-07-13] MEDS: Benztropine 1 MG TAB PO SCH ×2 (08:56→16:04)
[2017-07-13] MEDS: Calcium Carb/Vit D 500 mg/200 U Tab PO SCH (08:56)
[2017-07-13] MEDS: PHENYLEPHRINE TP SCH ×4 (08:58→20:40)
[2017-07-13] MEDS: Levothyroxine 0.125 Mg Tab PO SCH (08:59)
--- NOTE | 2017-07-13 11:00 | General Progress Note ---
Subjective - Review of Systems Events since last encounter: in no acute distress Subjective: no apparent distress Objective - Results Result Diagrams: 07/12/17 05:45 07/13/17 06:15 Recent Labs: Laboratory Last Values WBC 9.3 Th/cmm (4.8-10.8) 07/12/17 05:45 RBC 4.07 Mil/cmm (4.30-5.70) L 07/12/17 05:45 Hgb 13.9 gm/dL (12-16) 07/12/17 05:45 Hct 40.9 % (41.0-60) L 07/12/17 05:45 MCV 100.6 fl (80-99) H 07/12/17 05:45 MCH 34.1 pg (26.0-30.0) H 07/12/17 05:45 MCHC Differential 33.9 pg (28.0-36.0) 07/12/17 05:45 RDW 13.0 % (11.5-20.0) 07/12/17 05:45 Plt Count 114 Th/cmm (150-400) L 07/12/17 05:45 MPV 8.4 fl 07/12/17 05:45 Neutrophils % 60.5 % (40.0-80.0) 07/12/17 05:45 Lymphocytes % 23.4 % (20.0-50.0) 07/12/17 05:45 Monocytes % 13.6 % (2.0-10.0) H 07/12/17 05:45 Eosinophils % 2.2 % (0.0-5.0) 07/12/17 05:45 Basophils % 0.3 % (0.0-2.0) 07/12/17 05:45 Neutrophils (Manual) 53 % (40-80) 07/09/17 06:10 Lymphocytes 30 % (20-50) 07/09/17 06:10 Monocytes 15 % (2-10) H 07/09/17 06:10 Eosinophils 2 % (0-5) 07/09/17 06:10 Platelet Estimate DECREASED PLATELETS (NORMAL) 07/09/17 06:10 Specimen Source Arterial 07/09/17 09:47 Sample Site Right Radial 07/09/17 09:47 pH 7.45 (7.35-7.45) 07/09/17 09:47 pCO2 36.0 mmHg (35.0-45.0) 07/09/17 09:47 pO2 74.0 mmHg (80.0-100.0) L 07/09/17 09:47 HCO3 25.8 mEq/L (20.0-26.0) 07/09/17 09:47 Base Excess 1.2 mEq/L (-3.0-3.0) 07/09/17 09:47 O2 Saturation 95.0 % (92.0-100.0) 07/09/17 09:47 Reji Test Positive 07/09/17 09:47 Vent Rate NA 07/09/17 09:47 Inspired O2 21 07/09/17 09:47 Tidal Volume NA 07/09/17 09:47 PEEP NA 07/09/17 09:47 Pressure (ins/psv/peep) NA 07/09/17 09:47 Critical Value LZHANG 07/09/17 09:47 Sodium 121 mEq/L (136-145) L 07/13/17 06:15 Potassium 4.2 mEq/L (3.5-5.1) 07/13/17 06:15 Chloride 92 mEq/L (98-107) L 07/13/17 06:15 Carbon Dioxide 22.5 mEq/L (21.0-31.0) 07/13/17 06:15 Anion Gap 10.7 (7.0-16.0) 07/13/17 06:15 BUN 17 mg/dL (7-25) 07/13/17 06:15 Creatinine 0.9 mg/dL (0.7-1.3) 07/13/17 06:15 Est GFR ( Amer) > 60.0 ml/min (>90) 07/13/17 06:15 Est GFR (Non-Af Amer) > 60.0 ml/min 07/13/17 06:15 BUN/Creatinine Ratio 18.9 07/13/17 06:15 Glucose 87 mg/dL (70-105) 07/13/17 06:15 POC Glucose 99 MG/DL (70 - 105) 07/08/17 12:21 Plasma/Ser Osmolality 257 07/08/17 12:35 Uric Acid 2.4 mg/dL (4.4-7.6) L 07/11/17 05:15 Calcium 8.9 mg/dL (8.6-10.3) 07/13/17 06:15 Magnesium 1.8 mg/dL (1.9-2.7) L 07/09/17 06:10 Total Bilirubin 0.7 mg/dL (0.3-1.0) 07/12/17 05:45 Direct Bilirubin 0.15 mg/dL (0.0-0.2) 07/09/17 06:10 AST 18 U/L (13-39) 07/12/17 05:45 ALT 14 U/L (7-52) 07/12/17 05:45 Alkaline Phosphatase 52 U/L (34-104) 07/12/17 05:45 Ammonia 86 umol/L (16-53) H 07/09/17 06:10 Total Protein 6.2 gm/dL (6.0-8.3) 07/12/17 05:45 Albumin 3.5 gm/dL (4.2-5.5) L 07/12/17 05:45 Globulin 2.7 gm/dL 07/12/17 05:45 Albumin/Globulin Ratio 1.3 (1.0-1.8) 07/12/17 05:45 Free T4 1.04 07/09/17 06:10 Free T3 2.5 07/09/17 06:10 Total Cortisol SEE REF. LAB REPORT 07/10/17 12:20 Urine Source MIDSTREAM 07/11/17 08:29 Urine Color YELLOW 07/11/17 08:29 Urine Clarity CLEAR (CLEAR) 07/11/17 08:29 Urine pH 8.5 (4.6 - 8.0) 07/11/17 08:29 Ur Specific [place] 1.015 (1.005-1.030) 07/11/17 08:29 Urine Protein NEGATIVE mg/dL (NEGATIVE) 07/11/17 08:29 Urine Glucose (UA) NEGATIVE mg/dL (NEGATIVE) 07/11/17 08:29 Urine Ketones NEGATIVE mg/dL (NEGATIVE) 07/11/17 08:29 Urine Blood NEGATIVE (NEGATIVE) 07/11/17 08:29 Urine Nitrate NEGATIVE (NEGATIVE) 07/11/17 08:29 Urine Bilirubin NEGATIVE (NEGATIVE) 07/11/17 08:29 Urine Urobilinogen 0.2 E.U./dL (0.2 - 1.0) 07/11/17 08:29 Ur Leukocyte Esterase NEGATIVE (NEGATIVE) 07/11/17 08:29 Urine RBC NONE SEEN /hpf (0-5) 07/11/17 08:29 Urine WBC 0-2 /hpf (0-5) 07/11/17 08:29 Ur Epithelial Cells RARE /lpf (FEW) 07/11/17 08:29 Urine Bacteria FEW /hpf (NONE SEEN) 07/11/17 08:29 Ur Random Sodium 126 mmol/L 07/11/17 08:35 Urine Creatinine 72.0 mg/dl (39.0-259.0) 07/11/17 08:35 Valproic Acid 116.1 ug/mL (50.0-100.0) H 07/08/17 12:35 Carbamazepine < 2.0 ug/ml (4.0-12.0) L 07/08/17 12:35 - Physical Exam Vitals and I&O: Vital Signs Temp 98.6 F 07/13/17 07:45 Pulse 71 07/13/17 08:56 Resp 18 07/13/17 08:00 BP 146/90 07/13/17 08:56 Pulse Ox 98 07/13/17 07:49 Intake & Output 07/12/17 07/13/17 07/13/17 18:59 06:59 18:59 Intake Total 500 Balance 500 Weight (lbs) 88.451 kg Intake: Oral 500 Other: # Voids 3 # Bowel Movements 1 Stool Characteristics Soft Weight Source Bedscale Active Medications: Current Medications Acetaminophen (Tylenol) 650 mg PO Q6H PRN PRN Reason: Pain (Mild) Stop: 09/07/17 02:00 Last Admin: 07/10/17 20:12 Dose: 650 mg Albuterol/Ipratropium (Duoneb Neb) 3 ml HHN Q6HRT [facility] Stop: 09/07/17 00:59 Last Admin: 07/13/17 07:26 Dose: 3 ml Atenolol (Tenormin) 25 mg PO DAILY [facility] Stop: 09/07/17 08:59 Last Admin: 07/13/17 08:56 Dose: 25 mg Benztropine Mesylate (Cogentin) 2 mg PO BID [facility] Stop: 09/07/17 08:59 Last Admin: 07/13/17 08:56 Dose: 2 mg Bisacodyl (Dulcolax 5 Mg Ec Tab) 5 mg PO BID [facility] Stop: 09/07/17 08:59 Last Admin: 07/13/17 08:56 Dose: 5 mg Budesonide (Pulmicort) 0.5 mg HHN BIDRT [facility] Stop: 09/07/17 06:59 Last Admin: 07/13/17 07:49 Dose: 0.5 mg Buspirone HCl (Buspar) 5 mg PO BID [facility] Stop: 09/07/17 08:59 Last Admin: 07/13/17 08:56 Dose: 5 mg Calcium/Vitamin D (Oscal W/Vitamin D) 1 tab PO DAILY [facility] Stop: 09/07/17 08:59 Last Admin: 07/13/17 08:56 Dose: 1 tab Docusate Sodium (Colace) 100 mg PO BID [facility] Stop: 09/07/17 08:59 Last Admin: 07/13/17 08:56 Dose: 100 mg Fluoxetine HCl (Prozac) 20 mg PO DAILY [facility] PRN Reason: Protocol Stop: 09/07/17 08:59 Last Admin: 07/13/17 08:59 Dose: 20 mg Sodium Chloride (Nacl 0.9%) 1,000 mls @ 15 mls/hr IV .Q24H [facility] Stop: 09/06/17 18:54 Last Admin: 07/11/17 05:41 Dose: 15 mls/hr Levetiracetam (Keppra) 1,500 mg PO BID [facility] Stop: 09/07/17 08:59 Last Admin: 07/13/17 08:55 Dose: 1,500 mg Levothyroxine Sodium (Synthroid) 0.125 mg PO DAILY [facility] Stop: 09/07/17 08:59 Last Admin: 07/13/17 08:59 Dose: 0.125 mg Magnesium Hydroxide (Milk Of Magnesia) 30 ml PO DAILY PRN PRN Reason: Constipation Stop: 09/06/17 20:14 Last Admin: 07/12/17 13:52 Dose: 30 ml Oxcarbazepine (Trileptal) 600 mg PO BID [facility] Stop: 09/07/17 08:59 Last Admin: 07/13/17 08:59 Dose: 600 mg Pantoprazole Sodium (Protonix) 40 mg PO QDAC [facility] Stop: 09/07/17 07:29 Last Admin: 07/13/17 06:37 Dose: 40 mg Phenyleph/Shark Oil/Glycerin/Petrol (Preparation-H) 1 appl TP QID [facility] Stop: 09/06/17 20:59 Last Admin: 07/13/17 08:58 Dose: 1 appl Psyllium Hydrophilic Mucilloid (Metamucil) 1 pkt PO DAILY [facility] Stop: 09/07/17 08:59 Last Admin: 07/13/17 08:56 Dose: 1 pkt Sodium Chloride (Nacl Tab) 1 gm PO TID [facility] Stop: 09/06/17 20:59 Last Admin: 07/13/17 08:56 Dose: 1 gm Tamsulosin HCl (Flomax) 0.4 mg PO DAILY [facility] Stop: 09/07/17 08:59 Last Admin: 07/13/17 08:56 Dose: 0.4 mg General: No acute distress HEENT: Atraumatic Neck: Supple Cardiovascular: Regular rate Lungs: Clear to auscultation Abdomen: Bowel sounds, Soft Assessment/Plan - Assessment Assessment: severe hypernatremia toxic metabolic encephalopathy seizures - Plan Plan: monitor electrolytes cpm Nutritional Asmnt/Malnutr-PDOC - Dietary Evaluation Malnutrition Findings (Please click <Entered> for more info): Nutritional Asmnt/Malnutrition Start: 07/11/17 11: 27 Text: Status: Complete Freq: Document 07/11/17 11:27 SILVESTRE (Rec: 07/11/17 11:33 SILVESTRE CALVERT- FNS1) Nutritional Asmnt/Malnutrition Patient General Information Diagnosis CP with respiratory distress Pertinent Medical Hx/Surgical Hx subarachnoid hemorrage, CP Subjective Information Pt asleep at time of visit Current Diet Order/ Nutrition Support regular Pertinent Medications bisacodyl, calcium with vit D, colace, synthorid, MOM, protonix, metamucil Pertinent Labs 07/11: Ma 120, K 4.1, Cl 93, BUN 11, Cr 0.8, Ca 9.1, glucose 89 Nutritional Hx/Data Height 1.57 m Height (Calculated Centimeters) 157.5 Current Weight (lbs) 88.451 kg Weight (Calculated Kilograms) 88.5 Weight (Calculated Grams) 76056.5 Body Mass Index (BMI) 35.6 Weight Status Obese GI Symptoms GI Symptoms None Last 07/10 Cultural/Ethnic/Protestant Belief unknown Usual diet at home regular Skin Integrity/Comment: kody score 16 Current %PO Fair (50-74%) Estimated Nutritional Goals BEE in Kcals: Using Current wt Adj wt of IBW Calories/Kcals/Kg 30+kcals/kg 2/2 CP Kcals Calculated 1860+kcals/day Protein: Adj wt of IBW Protein g/k.2+g/kg 2/2 CP Protein Calculated 74g/day Fluid: ml per MD Nutritional Problem 1. Problem Problem No nutrition diagnosis at this time Intervention/Recommendation Comments Recommend continuing Regular diet Expected Outcomes/Goals Expected Outcomes/Goals PO intake >75% of meals
[2017-07-13] MEDS: Sodium Chloride 0.9% 1,000 ML IV SCH (13:28)
--- NOTE | 2017-07-14 00:42 | Progress Notes ---
DATE: 07/13/2017 PULMONARY PROGRESS NOTE PROBLEM LIST: 1. Severe obstructive sleep apnea syndrome. 2. Persistent hyponatremia. 3. Underlying history of mental and physical illness. SYMPTOMS: Nil. SUBJECTIVE: The patient is feeling okay. Denies any coughing, wheezing or shortness of breath. PHYSICAL EXAMINATION: VITAL SIGNS: Temperature is 98.1, blood pressure 130/80. NECK: Veins not visualized. CHEST: Shows diminished air entry with occasional rhonchi. ABDOMEN: Soft, nontender. LABORATORY DATA: The patient's sodium is still 121 and chloride is 92. ASSESSMENT: The patient with persistent hyponatremia. We suspect SIADH by way of urine and serum osmolality, also complicated by obstructive sleep apnea syndrome with morbid obesity. PLANS AND SUGGESTIONS: We will go ahead and continue current treatment. We will discuss followup with administrative asst and also ____ can be instituted. JOB# [id number]
[2017-07-14] MEDS: Albuterol/Ipratropium Neb 3 ML AERS HHN SCH ×4 (01:26→18:55)
[2017-07-14] MEDS: Pantoprazole 40 mg EC Tab PO SCH (06:41)
[2017-07-14 06:42] LABS: EOSINOPHILE ABSOLUTE 0.2 Th/cmm (0.1-0.4); HEMOGLOBIN 13.8 gm/dL (12-16); LYMPHOCYTE ABSOLUTE 1.4 Th/cmm (1.5-3.0); MEAN CELL VOLUME 98.4 fl (80-99); MEAN CORPUSCULAR HGB CONC 33.5 pg (28.0-36.0); MEAN PLATELET VOLUME 7.1 fl; PLATELET COUNT 147 Th/cmm (150-400); RED BLOOD COUNT 4.17 Mil/cmm (4.30-5.70); RED CELL DISTRIBUTION WIDTH 12.7 % (11.5-20.0); WHITE BLOOD COUNT 5.6 Th/cmm (4.8-10.8)
[2017-07-14] MEDS: Budesonide 0.5 Mg/2 mL Ud HHN SCH ×2 (06:55→19:23)
[2017-07-14 06:57] LABS: % EOSINOPHILS 3.1 % (0.0-5.0); % LYMPHOCYTES 25.4 % (20.0-50.0); % MONOCYTES 17.5 % (2.0-10.0); % NEUTROPHILS 53.6 % (40.0-80.0)
[2017-07-14 06:58] LABS: % BASOPHILS 0.4 % (0.0-2.0)
[2017-07-14] MEDS: Benztropine 1 MG TAB PO SCH ×2 (09:10→16:10)
[2017-07-14] MEDS: Levothyroxine 0.125 Mg Tab PO SCH (09:10)
[2017-07-14] MEDS: Calcium Carb/Vit D 500 mg/200 U Tab PO SCH (09:10)
[2017-07-14] MEDS: PHENYLEPHRINE TP SCH ×4 (09:20→21:49)
[2017-07-14 16:12] LABS: T3 FREE 2.5 pg/mL (2.0-4.4)
[2017-07-14 16:15] LABS: ANION GAP 11.1 (7.0-16.0); BUN - UREA NITROGEN 16 mg/dL (7-25); CALCIUM SERUM 8.8 mg/dL (8.6-10.3); CHLORIDE 89 mEq/L (98-107); CREATININE - SERUM 0.8 mg/dL (0.7-1.3); GFR AFRICAN-AMERICAN > 60.0 ml/min (>90); GFR NON AFRICAN-AMERICAN > 60.0 ml/min; GLUCOSE 106 mg/dL (70-105); POTASSIUM SERUM 4.1 mEq/L (3.5-5.1)
[2017-07-14 16:24] LABS: SODIUM SERUM 116 mEq/L (136-145)
[2017-07-14] MEDS ORDERED: Sodium Chloride 3% 300 ML IV ONE (17:00)
--- NOTE | 2017-07-14 21:20 | Progress Notes ---
DATE: 07/14/2017 PULMONARY PROGRESS NOTE PROBLEM LIST: 1. Obstructive sleep apnea syndrome. CPAP compliant. 2. Severe hyponatremia, SIADH not improving, underlying mentally and physically developmental delay. SYMPTOMS: Nil. He is okay. Breathing is okay. No specific new symptomatology. PHYSICAL EXAMINATION: VITAL SIGNS: The patient's recorded vitals: Temperature is 96.9. Saturation is 97% on room air. ENT: Shows no new changes. CHEST: Show clear. HEART: Regular. ABDOMEN: Soft, nontender. LABORATORY DATA: The patient's sodium is still on the lower side. ASSESSMENT: The patient is clinically stable, improving. PLANS AND SUGGESTIONS: Discussed with pharmacy yesterday about ____ orally and also ____ Dr. Garg and hopefully we can get those medications and see how he does and go from there. JOB# [id number]
[2017-07-15] MEDS: Albuterol/Ipratropium Neb 3 ML AERS HHN SCH ×3 (00:58→12:31)
[2017-07-15 05:33] LABS: HEMOGLOBIN 14.2 gm/dL (12-16); MANUAL DIFF REQUIRED? YES; MEAN CELL VOLUME 100.8 fl (80-99); MEAN CORPUSCULAR HEMOGLOBIN 33.4 pg (26.0-30.0); MEAN CORPUSCULAR HGB CONC 33.1 pg (28.0-36.0); MEAN PLATELET VOLUME 7.4 fl; PLATELET COUNT 154 Th/cmm (150-400); RED BLOOD COUNT 4.26 Mil/cmm (4.30-5.70); RED CELL DISTRIBUTION WIDTH 12.6 % (11.5-20.0); WHITE BLOOD COUNT 6.3 Th/cmm (4.8-10.8)
[2017-07-15 06:02] LABS: ALB/GLOB RATIO 1.2 (1.0-1.8); ALBUMIN 3.6 gm/dL (4.2-5.5); ALKALINE PHOSPHATASE 51 U/L (34-104); ANION GAP 11.8 (7.0-16.0); BILIRUBIN,TOTAL 0.5 mg/dL (0.3-1.0); BUN - UREA NITROGEN 14 mg/dL (7-25); CALCIUM SERUM 8.9 mg/dL (8.6-10.3); CARBON DIOXIDE 20.9 mEq/L (21.0-31.0); CHLORIDE 91 mEq/L (98-107); CREATININE - SERUM 0.7 mg/dL (0.7-1.3); GFR AFRICAN-AMERICAN > 60.0 ml/min (>90); GFR NON AFRICAN-AMERICAN > 60.0 ml/min; GLUCOSE 95 mg/dL (70-105); MAGNESIUM 1.8 mg/dL (1.9-2.7); POTASSIUM SERUM 3.7 mEq/L (3.5-5.1); SGOT 17 U/L (13-39); SGPT/ALT 14 U/L (7-52); TOTAL PROTEIN,SERUM 6.5 gm/dL (6.0-8.3)
[2017-07-15 06:20] LABS: SODIUM SERUM 120 mEq/L (136-145)
[2017-07-15] MEDS: Pantoprazole 40 mg EC Tab PO SCH (06:52)
[2017-07-15] MEDS: Budesonide 0.5 Mg/2 mL Ud HHN SCH (07:02)
[2017-07-15 07:03] LABS: EOSINOPHIL 4 % (0-5); LYMPHOCYTE 41 % (20-50); MONOCYTE 4 % (2-10); NEUTROPHILS 51 % (40-80); TOTAL CELLS COUNTED 100
[2017-07-15] MEDS: PHENYLEPHRINE TP SCH ×3 (08:55→16:09)
[2017-07-15] MEDS: Levothyroxine 0.125 Mg Tab PO SCH (08:55)
[2017-07-15] MEDS: Calcium Carb/Vit D 500 mg/200 U Tab PO SCH (08:56)
[2017-07-15] MEDS: Benztropine 1 MG TAB PO SCH ×2 (08:56→16:08)
--- NOTE | 2017-07-15 14:31 | Progress Notes ---
DATE: 07/15/2017 PROBLEM LIST: 1. Asthmatic bronchitis, improved. 2. Obstructive sleep apnea syndrome, CPAP complaint. 3. Persistent hyponatremia. 4. Underlying physical and mentally challenged issues. SYMPTOMS: Nil, feeling okay, offers no specific new symptomatology. PHYSICAL EXAMINATION: VITAL SIGNS: Temperature is 96.7, blood pressure 128/91. NECK: Veins not visualized. CHEST: Diminished air entry. No other adventitious breath sounds. HEART: Regular. ABDOMEN: Soft, nontender. LABORATORY DATA: The patient's sodium is 120, not significantly changed. PLANS AND SUGGESTIONS: We will continue current treatment. We will discuss with pharmacy about ____ etc. and go from there. JOB# [id number]
--- NOTE | 2017-07-15 15:56 | General Progress Note ---
Subjective - Review of Systems Events since last encounter: patient improving in no acute distress Subjective: no apparent distress Objective - Results Result Diagrams: 07/15/17 04:50 07/15/17 04:50 Recent Labs: Laboratory Last Values WBC 6.3 Th/cmm (4.8-10.8) 07/15/17 04:50 RBC 4.26 Mil/cmm (4.30-5.70) L 07/15/17 04:50 Hgb 14.2 gm/dL (12-16) 07/15/17 04:50 Hct 43.0 % (41.0-60) 07/15/17 04:50 MCV 100.8 fl (80-99) H 07/15/17 04:50 MCH 33.4 pg (26.0-30.0) H 07/15/17 04:50 MCHC Differential 33.1 pg (28.0-36.0) 07/15/17 04:50 RDW 12.6 % (11.5-20.0) 07/15/17 04:50 Plt Count 154 Th/cmm (150-400) 07/15/17 04:50 MPV 7.4 fl 07/15/17 04:50 Neutrophils % 53.6 % (40.0-80.0) 07/14/17 06:30 Lymphocytes % 25.4 % (20.0-50.0) 07/14/17 06:30 Monocytes % 17.5 % (2.0-10.0) H 07/14/17 06:30 Eosinophils % 3.1 % (0.0-5.0) 07/14/17 06:30 Basophils % 0.4 % (0.0-2.0) 07/14/17 06:30 Neutrophils (Manual) 51 % (40-80) 07/15/17 04:50 Lymphocytes 41 % (20-50) 07/15/17 04:50 Monocytes 4 % (2-10) 07/15/17 04:50 Eosinophils 4 % (0-5) 07/15/17 04:50 Platelet Estimate DECREASED PLATELETS (NORMAL) 07/09/17 06:10 Specimen Source Arterial 07/09/17 09:47 Sample Site Right Radial 07/09/17 09:47 pH 7.45 (7.35-7.45) 07/09/17 09:47 pCO2 36.0 mmHg (35.0-45.0) 07/09/17 09:47 pO2 74.0 mmHg (80.0-100.0) L 07/09/17 09:47 HCO3 25.8 mEq/L (20.0-26.0) 07/09/17 09:47 Base Excess 1.2 mEq/L (-3.0-3.0) 07/09/17 09:47 O2 Saturation 95.0 % (92.0-100.0) 07/09/17 09:47 Reji Test Positive 07/09/17 09:47 Vent Rate NA 07/09/17 09:47 Inspired O2 21 07/09/17 09:47 Tidal Volume NA 07/09/17 09:47 PEEP NA 07/09/17 09:47 Pressure (ins/psv/peep) NA 07/09/17 09:47 Critical Value LZHANG 07/09/17 09:47 Sodium 120 mEq/L (136-145) L 07/15/17 04:50 Potassium 3.7 mEq/L (3.5-5.1) 07/15/17 04:50 Chloride 91 mEq/L (98-107) L 07/15/17 04:50 Carbon Dioxide 20.9 mEq/L (21.0-31.0) L 07/15/17 04:50 Anion Gap 11.8 (7.0-16.0) 07/15/17 04:50 BUN 14 mg/dL (7-25) 07/15/17 04:50 Creatinine 0.7 mg/dL (0.7-1.3) 07/15/17 04:50 Est GFR ( Amer) > 60.0 ml/min (>90) 07/15/17 04:50 Est GFR (Non-Af Amer) > 60.0 ml/min 07/15/17 04:50 BUN/Creatinine Ratio 20.0 07/15/17 04:50 Glucose 95 mg/dL (70-105) 07/15/17 04:50 POC Glucose 99 MG/DL (70 - 105) 07/08/17 12:21 Plasma/Ser Osmolality 257 mOsmol/kg (275-295) L 07/08/17 12:35 Uric Acid 2.4 mg/dL (4.4-7.6) L 07/11/17 05:15 Calcium 8.9 mg/dL (8.6-10.3) 07/15/17 04:50 Magnesium 1.8 mg/dL (1.9-2.7) L 07/15/17 04:50 Total Bilirubin 0.5 mg/dL (0.3-1.0) 07/15/17 04:50 Direct Bilirubin 0.15 mg/dL (0.0-0.2) 07/09/17 06:10 AST 17 U/L (13-39) 07/15/17 04:50 ALT 14 U/L (7-52) 07/15/17 04:50 Alkaline Phosphatase 51 U/L (34-104) 07/15/17 04:50 Ammonia 86 umol/L (16-53) H 07/09/17 06:10 Total Protein 6.5 gm/dL (6.0-8.3) 07/15/17 04:50 Albumin 3.6 gm/dL (4.2-5.5) L 07/15/17 04:50 Globulin 2.9 gm/dL 07/15/17 04:50 Albumin/Globulin Ratio 1.2 (1.0-1.8) 07/15/17 04:50 Free T4 1.04 07/09/17 06:10 Free T3 2.5 pg/mL (2.0-4.4) 07/09/17 06:10 Total Cortisol SEE REF. LAB REPORT 07/10/17 12:20 Urine Source MIDSTREAM 07/11/17 08:29 Urine Color YELLOW 07/11/17 08:29 Urine Clarity CLEAR (CLEAR) 07/11/17 08:29 Urine pH 8.5 (4.6 - 8.0) 07/11/17 08:29 Ur Specific [place] 1.015 (1.005-1.030) 07/11/17 08:29 Urine Protein NEGATIVE mg/dL (NEGATIVE) 07/11/17 08:29 Urine Glucose (UA) NEGATIVE mg/dL (NEGATIVE) 07/11/17 08:29 Urine Ketones NEGATIVE mg/dL (NEGATIVE) 07/11/17 08:29 Urine Blood NEGATIVE (NEGATIVE) 07/11/17 08:29 Urine Nitrate NEGATIVE (NEGATIVE) 07/11/17 08:29 Urine Bilirubin NEGATIVE (NEGATIVE) 07/11/17 08:29 Urine Urobilinogen 0.2 E.U./dL (0.2 - 1.0) 07/11/17 08:29 Ur Leukocyte Esterase NEGATIVE (NEGATIVE) 07/11/17 08:29 Urine RBC NONE SEEN /hpf (0-5) 07/11/17 08:29 Urine WBC 0-2 /hpf (0-5) 07/11/17 08:29 Ur Epithelial Cells RARE /lpf (FEW) 07/11/17 08:29 Urine Bacteria FEW /hpf (NONE SEEN) 07/11/17 08:29 Ur Random Sodium 126 mmol/L 07/11/17 08:35 Urine Creatinine 72.0 mg/dl (39.0-259.0) 07/11/17 08:35 Valproic Acid 116.1 ug/mL (50.0-100.0) H 07/08/17 12:35 Carbamazepine < 2.0 ug/ml (4.0-12.0) L 07/08/17 12:35 - Physical Exam Vitals and I&O: Vital Signs Temp 96.7 F 07/15/17 12:06 Pulse 71 07/15/17 12:31 Resp 18 07/15/17 12:31 BP 138/91 07/15/17 12:06 Pulse Ox 97 07/15/17 12:31 Intake & Output 07/14/17 07/15/17 07/15/17 18:59 06:59 18:59 Intake Total 1400 300 Balance 1400 300 Weight (lbs) 87.09 kg Intake: Intake, IV Amount 300 Oral 1400 Other: # Voids 3 Stool Characteristics Soft Soft Soft Weight Source Bedscale Active Medications: Current Medications Acetaminophen (Tylenol) 650 mg PO Q6H PRN PRN Reason: Pain (Mild) Stop: 09/07/17 02:00 Last Admin: 07/10/17 20:12 Dose: 650 mg Albuterol/Ipratropium (Duoneb Neb) 3 ml HHN Q6HRT [facility] Stop: 09/07/17 00:59 Last Admin: 07/15/17 12:31 Dose: 3 ml Atenolol (Tenormin) 25 mg PO DAILY [facility] Stop: 09/07/17 08:59 Last Admin: 07/15/17 08:56 Dose: 25 mg Benztropine Mesylate (Cogentin) 2 mg PO BID [facility] Stop: 09/07/17 08:59 Last Admin: 07/15/17 08:56 Dose: 2 mg Bisacodyl (Dulcolax 5 Mg Ec Tab) 5 mg PO BID [facility] Stop: 09/07/17 08:59 Last Admin: 07/15/17 08:56 Dose: 5 mg Budesonide (Pulmicort) 0.5 mg HHN BIDRT [facility] Stop: 09/07/17 06:59 Last Admin: 07/15/17 07:02 Dose: 0.5 mg Buspirone HCl (Buspar) 5 mg PO BID [facility] Stop: 09/07/17 08:59 Last Admin: 07/15/17 08:55 Dose: 5 mg Calcium/Vitamin D (Oscal W/Vitamin D) 1 tab PO DAILY [facility] Stop: 09/07/17 08:59 Last Admin: 07/15/17 08:56 Dose: 1 tab Docusate Sodium (Colace) 100 mg PO BID [facility] Stop: 09/07/17 08:59 Last Admin: 07/15/17 08:56 Dose: 100 mg Fludrocortisone Acetate (Florinef) 0.1 mg PO DAILY [facility] Stop: 09/13/17 08:59 Last Admin: 07/15/17 08:55 Dose: 0.1 mg Fluoxetine HCl (Prozac) 20 mg PO DAILY [facility]; Protocol Stop: 09/07/17 08:59 Last Admin: 07/15/17 08:56 Dose: 20 mg Sodium Chloride (Nacl 0.9%) 1,000 mls @ 15 mls/hr IV .Q24H [facility] Stop: 09/06/17 18:54 Last Admin: 07/13/17 13:28 Dose: 15 mls/hr Levetiracetam (Keppra) 1,500 mg PO BID [facility] Stop: 09/07/17 08:59 Last Admin: 07/15/17 08:57 Dose: 1,500 mg Levothyroxine Sodium (Synthroid) 0.125 mg PO DAILY [facility] Stop: 09/07/17 08:59 Last Admin: 07/15/17 08:55 Dose: 0.125 mg Magnesium Hydroxide (Milk Of Magnesia) 30 ml PO DAILY PRN PRN Reason: Constipation Stop: 09/06/17 20:14 Last Admin: 07/12/17 13:52 Dose: 30 ml Oxcarbazepine (Trileptal) 600 mg PO BID [facility] Stop: 09/07/17 08:59 Last Admin: 07/15/17 08:56 Dose: 600 mg Pantoprazole Sodium (Protonix) 40 mg PO QDAC [facility] Stop: 09/07/17 07:29 Last Admin: 07/15/17 06:52 Dose: 40 mg Phenyleph/Shark Oil/Glycerin/Petrol (Preparation-H) 1 appl TP QID [facility] Stop: 09/06/17 20:59 Last Admin: 07/15/17 12:13 Dose: 1 appl Psyllium Hydrophilic Mucilloid (Metamucil) 1 pkt PO DAILY [facility] Stop: 09/07/17 08:59 Last Admin: 07/15/17 08:55 Dose: 1 pkt Sodium Chloride (Nacl Tab) 1 gm PO TID [facility] Stop: 09/06/17 20:59 Last Admin: 07/15/17 13:34 Dose: Not Given Sodium Chloride (Nacl Tab) 1 gm PO QID [facility] Stop: 09/13/17 08:59 Last Admin: 07/15/17 12:13 Dose: 1 gm Tamsulosin HCl (Flomax) 0.4 mg PO DAILY [facility] Stop: 09/07/17 08:59 Last Admin: 07/15/17 08:56 Dose: 0.4 mg General: No acute distress HEENT: Atraumatic Neck: Supple Cardiovascular: Regular rate Lungs: Clear to auscultation Abdomen: Bowel sounds, Soft Assessment/Plan - Assessment Assessment: severe hypernatremia toxic metabolic encephalopathy seizures - Plan Plan: monitor electrolytes cpm Nutritional Asmnt/Malnutr-PDOC - Dietary Evaluation Malnutrition Findings (Please click <Entered> for more info): Nutritional Asmnt/Malnutrition Start: 07/11/17 11: 27 Text: Status: Complete Freq: Protocol: Document 07/11/17 11:27 SILVESTRE (Rec: 07/11/17 11:33 SILVESTRE CALVERT- FNS1) Nutritional Asmnt/Malnutrition Patient General Information Diagnosis CP with respiratory distress Pertinent Medical Hx/Surgical Hx subarachnoid hemorrage, CP Subjective Information Pt asleep at time of visit Current Diet Order/ Nutrition Support regular Pertinent Medications bisacodyl, calcium with vit D, colace, synthorid, MOM, protonix, metamucil Pertinent Labs 07/11: Ma 120, K 4.1, Cl 93, BUN 11, Cr 0.8, Ca 9.1, glucose 89 Nutritional Hx/Data Height 1.57 m Height (Calculated Centimeters) 157.5 Current Weight (lbs) 88.451 kg Weight (Calculated Kilograms) 88.5 Weight (Calculated Grams) 33877.5 Body Mass Index (BMI) 35.6 Weight Status Obese GI Symptoms GI Symptoms None Last BM 07/10 Cultural/Ethnic/[place] Belief unknown Usual diet at home regular Skin Integrity/Comment: kody score 16 Current %PO Fair (50-74%) Estimated Nutritional Goals BEE in Kcals: Using Current wt Adj wt of IBW Calories/Kcals/Kg 30+kcals/kg 2/2 CP Kcals Calculated 1860+kcals/day Protein: Adj wt of IBW Protein g/k.2+g/kg 2/2 CP Protein Calculated 74g/day Fluid: ml per MD Nutritional Problem 1. Problem Problem No nutrition diagnosis at this time Intervention/Recommendation Comments Recommend continuing Regular diet Expected Outcomes/Goals Expected Outcomes/Goals PO intake >75% of meals
== END 2017-07-15 17:56 | disposition home or self-care (01) | DRG 52 ==
LOC: ER 12:05 → MSI 13:55
PROVIDERS: ADMIT Internal Medicine; ATTEND Internal Medicine
DX: G92 Toxic encephalopathy (principal); E22.2 Syndrome of inappropriate secretion of antidiuretic hormone; E66.01 Morbid (severe) obesity due to excess calories; F79 Unspecified intellectual disabilities; G40.909 Epilepsy, unspecified, not intractable, without status epilepticus; G47.33 Obstructive sleep apnea (adult) (pediatric); Z68.35 Body mass index [BMI] 35.0-35.9, adult
CPT/HCPCS: 36415-UA; 36600-90; 70450-TC; 71045-TC; 80048-TC; 80053-TC; 80156-TC; 80164-TC; 81001-TC; 82140-TC; 82248-TC; 82533-90; 82570-TC; 82803-TC; 82948-90; 83735-TC; 83930-90; 83935-90; 84295-TC; 84300-TC; 84439-90; 84479-90; 84550-TC; 85007-TC; 85025-TC; 85027-TC; 93005; 94640; 94760; J7030; J7131; Z7610

== ENCOUNTER 2017-08-12 11:13 | Inpatient (IN) | payer MEDICAID ==
--- NOTE | 2017-08-12 11:39 | ED Physician Chart ---
ED Chief Complaint/HPI - Patient Information Date Seen:: 08/12/17 Time Seen:: 11:15 Chief Complaint:: AMS History of Present Illness:: onset x one day of AMS and ALOC; no report of trauma, H/As, S/T, neck pain, cough, C/P, SOB, Abd. Pain, A/N/V/D/C, fever, chills, or urinary s/s Allergies:: Allergies Allergy/AdvReac Type Severity Reaction Status Date / Time No Known Allergies Allergy Verified 01/30/17 19:57 Historian:: Patient, Friend Review:: Nurse's Note Reviewed ED Review of Systems - Review of Systems General/Constitutional: No fever, No chills, No weight loss, No weakness, No diaphoresis, No edema, No loss of appetite Skin: No skin lesions, No rash, No bruising Head: No headache, No light-headedness Eyes: No loss of vision, No pain, No diplopia ENT: No earache, No nasal drainage, No sore throat, No tinnitus Neck: No neck pain, No swelling, No thyromegaly, No stiffness, No mass noted Cardio Vascular: No chest pain, No palpitations, No PND, No orthopnea, No edema Pulmonary: No SOB, No cough, No sputum, No wheezing GI: No nausea, No vomiting, No diarrhea, No pain, No melena, No hematochezia, No constipation, No hematemesis G/U: No dysuria, No frequency, No hematuria, No nacturia Musculoskeletal: No bone or joint pain, No back pain, No muscle pain Endocrine: No polyuria, No polydipsia Psychiatric: No prior psych history, No depression, No anxiety, No suicidal ideation, No homicidal ideation, No auditory hallucination, No visual hallucination Hematopoietic: No bruising, No lymphadenopathy Allergic/Immuno: No urticaria, No angioedema Neurological: No syncope, No focal symptoms, No weakness, No paresthesia, No headache, Seizure, No dizziness, Confusion, No vertigo ED Past Medical History - Past Medical History Obtainable: Yes Past Medical History: Seizures, Dementia Family History: HTN Social History: Non Smoker, No Alcohol, No Drug Use, Single, Care Facility Surgical History: None Psychiatricy History: Dementia Medication: Reviewed Family Medical History - Family Member Mother History Unknown: Yes Ethnicity: ED Physical Exam - Physical Examination General/Constitutional: Awake, Well-developed, well-nourished, Alert, No distress, GCS 15, Non-toxic appearing, Ambulatory Head: Atraumatic Eyes: Lids, conjuctiva normal, PERRL, EOMI Skin: Nl inspection, No rash, No skin lesions, No ecchymosis, Well hydrated, No lymphadenopathy ENMT: External ears, nose nl, TM canals nl, Nasal exam nl, Lips, teeth, gums nl , Oropharynx nl, Tonsils nl Neck: Nontender, Full ROM w/o pain, No JVD, No nuchal rigidity, No bruit, No mass, No stridor Respiratory: Nl effort/Exclusion, Clear to Auscultation, No Wheeze/Rhonchi/Rales Cardio Vascular: RRR, No murmur, gallop, rubs, NL S1 S2, Carotid/Femoral/Distal pulses equal bilaterally GI: No tenderness/rebounding/guarding, No organomegaly, No hernia, Normal BS's, Nondistended, No mass/bruits, No McBurney tenderness : No CVA tenderness Extremities: No tenderness or effusion, Full ROM, normal strength in all extremities, No edema, Normal digits & nails Neuro/Psych: Alert/oriented, DTR's symmetric, Normal sensory exam, Normal motor strength, Judgement/insight normal, Mood normal, Normal gait, No focal deficits Misc: Normal back, No paraspinal tenderness ED Labs/Radiology/EKG Results - Lab Results Comments:: WBC: 12.2; Na+: 123 - Radiology Results Comments:: NAD - EKG Interpretations EKG Time:: 11:39 Rate & Rhythm: 82; NSR Comments:: non-specific st-t changes ED Septic Shock - . Is Septic Shock (SBP<90, OR Lactate>4 mmol\L) present?: No ED Reassessment (Disposition) - Reassessment Reassessment Condition:: Improved - Diagnosis Diagnosis:: Dx: ALOC; AMS; Leukocytosis; Hyponatremia; Sepsis - Aftercare/Follow up Instructions Aftercare/Follow-Up Instructions:: Counseled pt regarding lab results/diagnosis & need follow up, Counseled pt & family regarding lab results/diagnosis & need follow up - Patient Disposition Discharge/Transfer:: Acute Care w/in this hosp Accepting Physician:: Dr. Osei Time Called:: 1230 Time Responded:: 12:30 Admitted to:: Telemetry Spoke to:: Dr. Franz Admitting Medical Physician:: Dr. Franz Condition at Disposition:: Stable, Improved
[2017-08-12 12:12] LABS: HEMATOCRIT 45.8 % (41.0-60); HEMOGLOBIN 15.4 gm/dL (12-16); MEAN CELL VOLUME 98.1 fl (80-99); MEAN CORPUSCULAR HGB CONC 33.6 pg (28.0-36.0); MEAN PLATELET VOLUME 8.3 fl; PLATELET COUNT 121 Th/cmm (150-400); RED BLOOD COUNT 4.66 Mil/cmm (4.30-5.70); RED CELL DISTRIBUTION WIDTH 13.6 % (11.5-20.0); WHITE BLOOD COUNT 12.2 Th/cmm (4.8-10.8)
[2017-08-12 12:18] LABS: MANUAL DIFF REQUIRED? YES
[2017-08-12 12:19] LABS: INR 1.09 (0.5-1.4); PROTHROMBIN TIME (TEST) 11.3 SECONDS (9.5-11.5)
[2017-08-12 12:24] LABS: ALB/GLOB RATIO 1.4 (1.0-1.8); ALBUMIN 4.2 gm/dL (4.2-5.5); ALKALINE PHOSPHATASE 65 U/L (34-104); ANION GAP 12.4 (7.0-16.0); BILIRUBIN,TOTAL 0.6 mg/dL (0.3-1.0); BUN - UREA NITROGEN 15 mg/dL (7-25); CALCIUM SERUM 9.6 mg/dL (8.6-10.3); CARBON DIOXIDE 24.7 mEq/L (21.0-31.0); CHLORIDE 90 mEq/L (98-107); CREATININE - SERUM 1.2 mg/dL (0.7-1.3); CREATININE KINASE 36 U/L (30-223); GFR AFRICAN-AMERICAN > 60.0 ml/min (>90); GFR NON AFRICAN-AMERICAN > 60.0 ml/min; GLUCOSE 100 mg/dL (70-105); POTASSIUM SERUM 4.1 mEq/L (3.5-5.1); SGOT 13 U/L (13-39); SGPT/ALT 8 U/L (7-52); SODIUM SERUM 123 mEq/L (136-145); TOTAL PROTEIN,SERUM 7.2 gm/dL (6.0-8.3)
[2017-08-12 12:36] LABS: BAND NEUTROPHILE 1 % (0-10); BASOPHIL 0 % (0-3); EOSINOPHIL 0 % (0-5); LYMPHOCYTE 11 % (20-50); MONOCYTE 14 % (2-10); NEUTROPHILS 74 % (40-80); PLATELET ESTIMATE SLIGHT DECREASED (NORMAL); TOTAL CELLS COUNTED 100
[2017-08-12] MEDS ORDERED: Sodium Chloride 0.9% 1,000 ML IV ONE (12:49)
[2017-08-12] MEDS ORDERED: cefTRIAXone 1 GM in Sodium Chloride 0.9% 50 ML IV ONE (13:01)
[2017-08-12 13:07] LABS: AMYLASE SERUM 33 U/L (29-103); LIPASE 10 U/L (11-82)
--- NOTE | 2017-08-12 14:09 | Diagnostic Imaging Report ---
Portable chest x-ray HISTORY: Pain There is a very poor inspiration. Heart size difficult to assess. Linear densities are noted in the right and left lung bases with little change since a prior exam of 07/05/2013. Changes consistent with probable scarring. No other focal processes. IMPRESSION: 1. Chronic linear densities within the right and left lower lobes suggesting scarring 2. No other focal processes
[2017-08-12] MEDS ORDERED: Sodium Chloride 3% 500 ML IV ONE (15:30)
[2017-08-12] MEDS ORDERED: cefTRIAXone 1 GM in Sodium Chloride 0.9% 50 ML IV SCH (17:30)
[2017-08-12] MEDS ORDERED: Magnesium Hydroxide (MOM) 30 mL UDC PO PRN (18:12)
[2017-08-12 19:42] LABS: URINE MICROSCOPIC INDICATED? YES; URINE SOURCE MIDSTREAM
[2017-08-12 19:43] LABS: URINE BILIRUBIN NEGATIVE (NEGATIVE); URINE BLOOD NEGATIVE (NEGATIVE); URINE GLUCOSE (UA) NEGATIVE (NEGATIVE); URINE KETONE TRACE mg/dL (NEGATIVE); URINE LEUKOCYTE ESTERASE NEGATIVE (NEGATIVE); URINE NITRATE NEGATIVE (NEGATIVE); URINE PH 5.5 (4.6 - 8.0); URINE PROTEIN TRACE mg/dL (NEGATIVE)
[2017-08-12 19:59] LABS: URINE CLARITY CLEAR (CLEAR); URINE COLOR YELLOW
[2017-08-12 20:00] LABS: URINE BACTERIA NONE SEEN /hpf (NONE SEEN); URINE EPITHELIAL CELLS NONE SEEN /lpf (FEW); URINE RBC NONE SEEN /hpf (0-5); URINE WBC NONE SEEN /hpf (0-5)
[2017-08-12 21:59] LABS: ANION GAP 11.9 (7.0-16.0); BUN - UREA NITROGEN 18 mg/dL (7-25); CALCIUM SERUM 9.4 mg/dL (8.6-10.3); CARBON DIOXIDE 26.1 mEq/L (21.0-31.0); CHLORIDE 91 mEq/L (98-107); GFR AFRICAN-AMERICAN > 60.0 ml/min (>90); GFR NON AFRICAN-AMERICAN > 60.0 ml/min; GLUCOSE 95 mg/dL (70-105); SODIUM SERUM 125 mEq/L (136-145)
--- NOTE | 2017-08-13 02:30 | Consultation ---
DATE OF CONSULTATION: 08/12/2017 ATTENDING: Faye Franz M.D. BATTERY LOADER: Chadd Boss M.D. REASON FOR CONSULTATION: Electrolyte imbalance, fluid management. HISTORY OF PRESENT ILLNESS: This is a 61-year-old male with past medical history of epilepsy, was brought in because of altered level of consciousness. A few hours prior to admission, the patient was noted to be very stuporous and lethargic. He was poorly responsive, which is not his usual self. Thus, he was brought to the Emergency Room. White count was 12.2, temperature of 98.8. Chest x-ray revealed no acute disease. His sodium level was 123. He was taking sodium chloride 1 gram twice a day. There was no history of any headaches, dizziness, nausea and vomiting, diarrhea, diuresis, fever/chills. PAST MEDICAL HISTORY: 1. Epilepsy. 2. Alzheimer dementia. 3. Constipation. 4. Gastritis. 5. Essential hypertension. 6. Hypothyroidism. CURRENT MEDICATIONS: His medication at the [facility] included docusate sodium, divalproex, sodium chloride tablets, furosemide, milk of magnesia, bisacodyl, acetaminophen, buspirone, levothyroxine, Latuda, omeprazole, atenolol, fluoxetine, tamsulosin, levetiracetam, benztropine, oxcarbazepine, oyster shell. ALLERGIES: No known drug allergies. SOCIAL AND FAMILY HISTORY: I was not able to obtain from the patient because he is very stuporous at the present time. REVIEW OF SYSTEMS: Again, I was not able to decipher directly from the patient because of the same reason. PHYSICAL EXAMINATION: GENERAL: The patient is arousable for only a few seconds, but then goes back to sleep, he is not in any form of distress. VITAL SIGNS: Temperature is 98.8, pulse is 74, BP is 97/63. SKIN: Poor turgor, warm, no rash, no jaundice appreciated. HEENT: Head normocephalic, atraumatic. Eyes: Extraocular muscles intact. Pupils equal, round, reactive to light and accommodates. Nose, midline nasal septum. Mouth, moist mucosa, adequate dentition. NECK: Supple. No adenopathy, no thyromegaly, no bruits. Trachea palpated in the midline. CHEST AND CARDIOVASCULAR: S1, S2. No rub, murmur nor gallop appreciated. Point of maximal impulse fifth intercostal space, left midclavicular line. No abdominal or femoral bruits appreciated. LUNGS: Equal expansion. No use of accessory muscles. No supraclavicular retractions. Clear to auscultation without any wheeze. ABDOMEN: Mildly globular, soft. Positive for bowel sounds. No bruits either diastolic or systolic. RECTAL: Lax sphincter tone. GENITOURINARY: Normal appearing male genitalia. MUSCULOSKELETAL: No effusions present in his joints, but unable to assess his range of motion. EXTREMITIES: No evidence of edema, cyanosis nor clubbing with palpable femoral, popliteal and dorsalis pedis pulses. NEUROLOGIC: As mentioned, the patient is lethargic, stuporous at the present time, so I was not able to pursue further my neuro exam. LABORATORY DATA: Did reveal a white count 12.2, hemoglobin 15.4, hematocrit 45.8, platelets 121, polys 74%. Sodium 123, potassium 4.1, chloride 90, bicarbonate 24, BUN 15, creatinine 1.2. Troponin less than 0.01. IMPRESSION: 1. Altered level of consciousness could be secondary to SIADH, possibly also from all the psychotropic meds that he is taking at the present time, metabolic encephalopathy and lastly an acute evolving CVA. 2. Hyponatremia secondary to SIADH due to medications such as oxcarbazepine which is a carbamazepine, fluoxetine which is an SSRI as well as furosemide which could cause an increase in sodium loss compared to free water loss and lastly possibly from hypothyroidism. 3. Epilepsy. 4. Alzheimer dementia. 5. Constipation. 6. Gastritis. 7. Essential hypertension. 8. Hypothyroidism. PLAN: 1. Start the patient on hypertonic saline due to ongoing neurological manifestations. 2. Discontinue furosemide, fluoxetine. Switch oxcarbazepine to another antiepileptic medication. 3. Follow up electrolytes, CBC, TSH level as well as serum osmolality. 4. Urinalysis. 5. Urine spot sodium. Thank you, Dr. Franz, for this consult. I will follow the patient closely with you. JOB# [id number]
--- NOTE | 2017-08-13 02:47 | Consultation ---
DATE OF CONSULTATION: 08/12/2017 INFECTIOUS DISEASE CONSULTATION REFERRING PHYSICIAN: Paola Franz MD. REASON FOR CONSULTATION: Altered mental status. HISTORY OF PRESENT ILLNESS: The patient is a 61-year-old male with a past medical history of seizure disorder and dementia, brought in from nursing facility for altered mental status of one day. On initial evaluation, the patient was afebrile and the patient's WBC count is 12,200. The patient was started on Rocephin and ID consult was called for the antibiotic management. ALLERGIES: NKDA. MEDICATIONS: Per medication reconciliation sheet. Antibiotic edmonds, the patient is on Rocephin. PAST MEDICAL HISTORY: Includes seizure disorder, dementia. SOCIAL HISTORY: The patient lives in a nursing facility. No history of smoking, alcohol or drug use. PAST SURGICAL HISTORY: None. FAMILY HISTORY: Hypertension. REVIEW OF SYSTEMS: The patient is a poor historian, unable to give any history. So far, the patient has no fever, no chills. The patient is alert and awake now. PHYSICAL EXAMINATION: CURRENT VITAL SIGNS: Shows temperature is 99.7 degrees Fahrenheit, pulse 84, respiration 18, blood pressure 144/78, and oxygen saturation 94%. GENERAL: The patient is comfortable, lying in the bed, not in acute distress. HEENT: Head is normocephalic, atraumatic. Oral cavity moist. NECK: Supple, no JVD, no carotid bruit. Trachea midline. CHEST: Bilateral breath sounds. No crackles or wheezing. HEART: S1, S2 within normal limits. Regular rhythm. No murmur, no gallop. ABDOMEN: Soft, nontender, nondistended. Bowel sounds present. EXTREMITIES: No cyanosis, no clubbing, no edema. NEUROLOGIC: He is alert and awake, follows the commands. LABORATORY DATA: Current lab shows WBC count 12,200, hemoglobin 15.4, hematocrit 45.8, platelets are 121,000. Sodium 125, potassium 4, chloride 91, bicarb is 26, BUN is 18, creatinine 1, glucose is 95. Urinalysis negative nitrite, negative leukoesterase. Chest x-ray shows chronic linear density within the right and left lower lobe scarring. IMPRESSION: 1. Leukocytosis, most likely aspiration. 2. Altered mental status. Check hyponatremia. 3. Hyponatremia. 4. Seizure disorder. 5. Dementia. RECOMMENDATIONS: We will continue Rocephin and follow the labs in the morning. Thank you, Dr. Franz for involving me in taking care of this patient. JOB# [id number]
[2017-08-13 06:45] LABS: HEMATOCRIT 42.2 % (41.0-60); MANUAL DIFF REQUIRED? YES
[2017-08-13 06:46] LABS: BUN - UREA NITROGEN 16 mg/dL (7-25); CALCIUM SERUM 8.8 mg/dL (8.6-10.3); CARBON DIOXIDE 23.9 mEq/L (21.0-31.0); CHLORIDE 93 mEq/L (98-107); CREATININE - SERUM 0.8 mg/dL (0.7-1.3); GFR AFRICAN-AMERICAN > 60.0 ml/min (>90); GFR NON AFRICAN-AMERICAN > 60.0 ml/min; GLUCOSE 85 mg/dL (70-105); POTASSIUM SERUM 3.9 mEq/L (3.5-5.1); SODIUM SERUM 123 mEq/L (136-145)
[2017-08-13 06:51] LABS: HEMOGLOBIN 14.5 gm/dL (12-16); MEAN CELL VOLUME 96.8 fl (80-99); MEAN CORPUSCULAR HEMOGLOBIN 33.3 pg (26.0-30.0); MEAN CORPUSCULAR HGB CONC 34.4 pg (28.0-36.0); MEAN PLATELET VOLUME 9.2 fl; MONOCYTE ABSOLUTE 1.4 Th/cmm (0.3-1.0); PLATELET COUNT 99 Th/cmm (150-400); RED BLOOD COUNT 4.36 Mil/cmm (4.30-5.70); RED CELL DISTRIBUTION WIDTH 13.1 % (11.5-20.0); WHITE BLOOD COUNT 9.4 Th/cmm (4.8-10.8)
[2017-08-13] MEDS ORDERED: Pantoprazole 40 mg EC Tab PO SCH (07:30)
[2017-08-13 07:38] LABS: TOTAL CELLS COUNTED 100
[2017-08-13 07:39] LABS: BASOPHIL 1 % (0-3); LYMPHOCYTE 14 % (20-50); MONOCYTE 7 % (2-10); NEUTROPHILS 78 % (40-80); PLATELET ESTIMATE DECREASED PLATELETS (NORMAL)
[2017-08-13] MEDS ORDERED: Levothyroxine 0.125 Mg Tab PO SCH (09:00)
[2017-08-13] MEDS: Calcium Carb/Vit D 500 mg/200 U Tab PO SCH (09:54)
[2017-08-13] MEDS: Benztropine 1 MG TAB PO SCH ×2 (09:54→18:01)
[2017-08-13] MEDS: PHENYLEPHRINE TP SCH ×4 (09:55→22:10)
[2017-08-13] MEDS: cefTRIAXone 1 GM in Sodium Chloride 0.9% 50 ML IV SCH (13:14)
--- NOTE | 2017-08-13 18:20 | General Progress Note ---
Subjective - Review of Systems Service Date: 08/13/17 Subjective: very awake, eating dinner, following commands Objective - Results Result Diagrams: 08/13/17 05:51 08/13/17 05:51 Recent Labs: Laboratory Last Values WBC 9.4 Th/cmm (4.8-10.8) 08/13/17 05:51 RBC 4.36 Mil/cmm (4.30-5.70) 08/13/17 05:51 Hgb 14.5 gm/dL (12-16) 08/13/17 05:51 Hct 42.2 % (41.0-60) 08/13/17 05:51 MCV 96.8 fl (80-99) 08/13/17 05:51 MCH 33.3 pg (26.0-30.0) H 08/13/17 05:51 MCHC Differential 34.4 pg (28.0-36.0) 08/13/17 05:51 RDW 13.1 % (11.5-20.0) 08/13/17 05:51 Plt Count 99 Th/cmm (150-400) L 08/13/17 05:51 MPV 9.2 fl 08/13/17 05:51 Neutrophils % [employer] 08/13/17 05:51 Band Neutrophils % 1 % (0-10) 08/12/17 11:55 Lymphocytes % [employer] 08/13/17 05:51 Monocytes % [employer]TE[employer] 08/13/17 05:51 Eosinophils % [employer]TE[employer] 08/13/17 05:51 Basophils % [employer]TE[employer] 08/13/17 05:51 Neutrophils (Manual) 78 % (40-80) 08/13/17 05:51 Lymphocytes 14 % (20-50) L 08/13/17 05:51 Monocytes 7 % (2-10) 08/13/17 05:51 Eosinophils 0 % (0-5) 08/12/17 11:55 Basophils 1 % (0-3) 08/13/17 05:51 Platelet Estimate DECREASED PLATELETS (NORMAL) 08/13/17 05:51 PT 11.3 SECONDS (9.5-11.5) 08/12/17 11:55 INR 1.09 (0.5-1.4) 08/12/17 11:55 PTT (Actin FS) 27.6 SECONDS (26.0-38.0) 08/12/17 11:55 Sodium 123 mEq/L (136-145) L 08/13/17 05:51 Potassium 3.9 mEq/L (3.5-5.1) 08/13/17 05:51 Chloride 93 mEq/L (98-107) L 08/13/17 05:51 Carbon Dioxide 23.9 mEq/L (21.0-31.0) 08/13/17 05:51 Anion Gap 10.0 (7.0-16.0) 08/13/17 05:51 BUN 16 mg/dL (7-25) 08/13/17 05:51 Creatinine 0.8 mg/dL (0.7-1.3) 08/13/17 05:51 Est GFR ( Amer) > 60.0 ml/min (>90) 08/13/17 05:51 Est GFR (Non-Af Amer) > 60.0 ml/min 08/13/17 05:51 BUN/Creatinine Ratio 20.0 08/13/17 05:51 Glucose 85 mg/dL (70-105) 08/13/17 05:51 POC Glucose 110 MG/DL (70 - 105) H 08/12/17 14:37 Whole Bld Lactic Acid 1.54 mmol/L (0.60-1.99) 08/12/17 11:55 Uric Acid 3.0 mg/dL (4.4-7.6) L 08/13/17 05:51 Calcium 8.8 mg/dL (8.6-10.3) 08/13/17 05:51 Total Bilirubin 0.6 mg/dL (0.3-1.0) 08/12/17 11:55 AST 13 U/L (13-39) 08/12/17 11:55 ALT 8 U/L (7-52) 08/12/17 11:55 Alkaline Phosphatase 65 U/L (34-104) 08/12/17 11:55 Creatine Kinase 36 U/L (30-223) 08/12/17 11:55 Troponin I < 0.01 ng/mL (0.01-0.05) L 08/12/17 11:55 Total Protein 7.2 gm/dL (6.0-8.3) 08/12/17 11:55 Albumin 4.2 gm/dL (4.2-5.5) 08/12/17 11:55 Globulin 3.0 gm/dL 08/12/17 11:55 Albumin/Globulin Ratio 1.4 (1.0-1.8) 08/12/17 11:55 Amylase 33 U/L (29-103) 08/12/17 11:55 Lipase 10 U/L (11-82) L 08/12/17 11:55 TSH 0.13 uIU/ml (0.34-5.60) L 08/13/17 05:51 Urine Source MIDSTREAM 08/12/17 19:05 Urine Color YELLOW 08/12/17 19:05 Urine Clarity CLEAR (CLEAR) 08/12/17 19:05 Urine pH 5.5 (4.6 - 8.0) 08/12/17 19:05 Ur Specific Cubero 1.020 (1.005-1.030) 08/12/17 19:05 Urine Protein TRACE mg/dL (NEGATIVE) 08/12/17 19:05 Urine Glucose (UA) NEGATIVE mg/dL (NEGATIVE) 08/12/17 19:05 Urine Ketones TRACE mg/dL (NEGATIVE) 08/12/17 19:05 Urine Blood NEGATIVE (NEGATIVE) 08/12/17 19:05 Urine Nitrate NEGATIVE (NEGATIVE) 08/12/17 19:05 Urine Bilirubin NEGATIVE (NEGATIVE) 08/12/17 19:05 Urine Urobilinogen 1.0 E.U./dL (0.2 - 1.0) 08/12/17 19:05 Ur Leukocyte Esterase NEGATIVE (NEGATIVE) 08/12/17 19:05 Urine RBC NONE SEEN /hpf (0-5) 08/12/17 19:05 Urine WBC NONE SEEN /hpf (0-5) 08/12/17 19:05 Ur Epithelial Cells NONE SEEN /lpf (FEW) 08/12/17 19:05 Urine Bacteria NONE SEEN /hpf (NONE SEEN) 08/12/17 19:05 - Physical Exam Vitals and I&O: Vital Signs Temp 100.3 F 08/13/17 15:45 Pulse 81 08/13/17 15:45 Resp 18 08/13/17 16:00 BP 114/68 08/13/17 15:45 Pulse Ox 94 08/13/17 15:45 Intake & Output 08/12/17 08/13/17 08/13/17 18:59 06:59 18:59 Intake Total 340 1250 Output Total 800 Balance -460 1250 Weight (lbs) 88.451 kg 62.233 kg 88.451 kg Intake: Intake, IV Amount 50 cefTRIAXone 1 gm In 50 Sodium Chloride 0.9% 50 ml @ 100 mls/hr IV Q24HR [facility] Rx#:[id number] Oral 340 1200 Output: Urine 800 Other: # Bowel Movements 1 Weight Source Standing scale Bedscale Bedscale Active Medications: Current Medications Acetaminophen (Tylenol) 650 mg PO Q6H PRN PRN Reason: Pain (Mild) Stop: 10/11/17 19:51 Last Admin: 08/13/17 18:04 Dose: 650 mg Atenolol (Tenormin) 25 mg PO DAILY [facility] Stop: 10/12/17 08:59 Last Admin: 08/13/17 09:54 Dose: 25 mg Benztropine Mesylate (Cogentin) 2 mg PO BID [facility] Stop: 10/12/17 08:59 Last Admin: 08/13/17 18:01 Dose: 2 mg Bisacodyl (Dulcolax 5 Mg Ec Tab) 10 mg PO BID [facility] Stop: 10/12/17 08:59 Last Admin: 08/13/17 18:01 Dose: 10 mg Buspirone HCl (Buspar) 5 mg PO BID [facility] Stop: 10/12/17 08:59 Last Admin: 08/13/17 18:01 Dose: 5 mg Calcium/Vitamin D (Oscal W/Vitamin D) 1 tab PO DAILY [facility] Stop: 10/12/17 08:59 Last Admin: 08/13/17 09:54 Dose: 1 tab Divalproex Sodium (Depakote Dr) 250 mg PO BID [facility]; Protocol Stop: 10/12/17 08:59 Last Admin: 08/13/17 18:01 Dose: 250 mg Docusate Sodium (Colace) 100 mg PO BID [facility] Stop: 10/12/17 08:59 Last Admin: 08/13/17 18:02 Dose: 100 mg Fludrocortisone Acetate (Florinef) 0.1 mg PO DAILY [facility] Stop: 10/12/17 08:59 Last Admin: 08/13/17 09:54 Dose: 0.1 mg Fluoxetine HCl (Prozac) 20 mg PO DAILY [facility]; Protocol Stop: 10/12/17 08:59 Last Admin: 08/13/17 09:53 Dose: 20 mg Furosemide (Lasix) 20 mg PO DAILY JONATHAN Stop: 10/12/17 08:59 Last Admin: 08/13/17 09:54 Dose: 20 mg Ceftriaxone Sodium 1 gm/ (Sodium Chloride) 50 mls @ 100 mls/hr IV Q24HR JONATHAN Stop: 10/12/17 12:59 Last Infusion: 08/13/17 13:44 Dose: Infused Levetiracetam (Keppra) 1,500 mg PO BID JONATHAN Stop: 10/12/17 08:59 Last Admin: 08/13/17 18:02 Dose: 1,500 mg Levothyroxine Sodium (Synthroid) 0.125 mg PO DAILY JONATHAN Stop: 10/12/17 08:59 Last Admin: 08/13/17 09:55 Dose: 0.125 mg Magnesium Hydroxide (Milk Of Magnesia) 30 ml PO DAILY PRN PRN Reason: Constipation Stop: 10/11/17 18:11 Miscellaneous (Lurasidone Hcl [Latuda]) 40 mg PO HS JONATHAN Stop: 10/11/17 20:59 Oxcarbazepine (Trileptal) 600 mg PO BID JONATHAN Stop: 10/12/17 08:59 Last Admin: 08/13/17 18:02 Dose: 600 mg Pantoprazole Sodium (Protonix) 40 mg PO QDAC JONATHAN Stop: 10/12/17 07:29 Last Admin: 08/13/17 06:49 Dose: 40 mg Phenyleph/Shark Oil/Glycerin/Petrol (Preparation-H) 0 appl TP QID JONATHAN Stop: 10/12/17 08:59 Last Admin: 08/13/17 18:02 Dose: 1 appl Psyllium Hydrophilic Mucilloid (Metamucil) 1 pkt PO DAILY JONATHAN Stop: 10/12/17 08:59 Last Admin: 08/13/17 09:55 Dose: Not Given Sodium Chloride (Nacl Tab) 1 gm PO BID JONATHAN Stop: 10/12/17 08:59 Last Admin: 08/13/17 18:02 Dose: 1 gm Tamsulosin HCl (Flomax) 0.4 mg PO DAILY JONATHAN Stop: 10/12/17 08:59 Last Admin: 08/13/17 09:54 Dose: 0.4 mg General: Alert, No acute distress HEENT: PERRLA, EOMI, Mucous membr. moist/pink Neck: Supple, +2 carotid pulse wo bruit Cardiovascular: Regular rate, Normal S1, Normal S2 Lungs: Clear to auscultation Abdomen: Bowel sounds, Soft Extremities: no Edema Neurological: Sensation intact Skin: no Rash Psych/Mental Status: Mood NL Assessment/Plan - Assessment Assessment: SIADH Epilepsy Alzh Dementia Constipation Gastritis Ess Htn Hypothyroid - Plan Plan: Lab - Result Diagrams 08/13/17 05:51 08/13/17 05:51 Current Medications Acetaminophen (Tylenol) 650 mg PO Q6H PRN PRN Reason: Pain (Mild) Stop: 10/11/17 19:51 Last Admin: 08/13/17 18:04 Dose: 650 mg Atenolol (Tenormin) 25 mg PO DAILY [facility] Stop: 10/12/17 08:59 Last Admin: 08/13/17 09:54 Dose: 25 mg Benztropine Mesylate (Cogentin) 2 mg PO BID [facility] Stop: 10/12/17 08:59 Last Admin: 08/13/17 18:01 Dose: 2 mg Bisacodyl (Dulcolax 5 Mg Ec Tab) 10 mg PO BID JONATHAN Stop: 10/12/17 08:59 Last Admin: 08/13/17 18:01 Dose: 10 mg Buspirone HCl (Buspar) 5 mg PO BID [facility] Stop: 10/12/17 08:59 Last Admin: 08/13/17 18:01 Dose: 5 mg Calcium/Vitamin D (Oscal W/Vitamin D) 1 tab PO DAILY [facility] Stop: 10/12/17 08:59 Last Admin: 08/13/17 09:54 Dose: 1 tab Divalproex Sodium (Depakote Dr) 250 mg PO BID [facility]; Protocol Stop: 10/12/17 08:59 Last Admin: 08/13/17 18:01 Dose: 250 mg Docusate Sodium (Colace) 100 mg PO BID [facility] Stop: 10/12/17 08:59 Last Admin: 08/13/17 18:02 Dose: 100 mg Fludrocortisone Acetate (Florinef) 0.1 mg PO DAILY [facility] Stop: 10/12/17 08:59 Last Admin: 08/13/17 09:54 Dose: 0.1 mg Fluoxetine HCl (Prozac) 20 mg PO DAILY [facility]; Protocol Stop: 10/12/17 08:59 Last Admin: 08/13/17 09:53 Dose: 20 mg Furosemide (Lasix) 20 mg PO DAILY JONATHAN Stop: 10/12/17 08:59 Last Admin: 08/13/17 09:54 Dose: 20 mg Ceftriaxone Sodium 1 gm/ (Sodium Chloride) 50 mls @ 100 mls/hr IV Q24HR JONATHAN Stop: 10/12/17 12:59 Last Infusion: 08/13/17 13:44 Dose: Infused Levetiracetam (Keppra) 1,500 mg PO BID JONATHAN Stop: 10/12/17 08:59 Last Admin: 08/13/17 18:02 Dose: 1,500 mg Levothyroxine Sodium (Synthroid) 0.125 mg PO DAILY JONATHAN Stop: 10/12/17 08:59 Last Admin: 08/13/17 09:55 Dose: 0.125 mg Magnesium Hydroxide (Milk Of Magnesia) 30 ml PO DAILY PRN PRN Reason: Constipation Stop: 10/11/17 18:11 Miscellaneous (Lurasidone Hcl [Latuda]) 40 mg PO HS [facility] Stop: 10/11/17 20:59 Oxcarbazepine (Trileptal) 600 mg PO BID JONATHAN Stop: 10/12/17 08:59 Last Admin: 08/13/17 18:02 Dose: 600 mg Pantoprazole Sodium (Protonix) 40 mg PO QDAC JONATHAN Stop: 10/12/17 07:29 Last Admin: 08/13/17 06:49 Dose: 40 mg Phenyleph/Shark Oil/Glycerin/Petrol (Preparation-H) 0 appl TP QID JONATHAN Stop: 10/12/17 08:59 Last Admin: 08/13/17 18:02 Dose: 1 appl Psyllium Hydrophilic Mucilloid (Metamucil) 1 pkt PO DAILY JONATHAN Stop: 10/12/17 08:59 Last Admin: 08/13/17 09:55 Dose: Not Given Sodium Chloride (Nacl Tab) 1 gm PO BID [facility] Stop: 10/12/17 08:59 Last Admin: 08/13/17 18:02 Dose: 1 gm Tamsulosin HCl (Flomax) 0.4 mg PO DAILY JONATHAN Stop: 10/12/17 08:59 Last Admin: 08/13/17 09:54 Dose: 0.4 mg
--- NOTE | 2017-08-13 18:26 | General Progress Note ---
Subjective - Review of Systems Service Date: 08/13/17 Subjective: very awake, eating dinner, following commands Objective - Results Result Diagrams: 08/13/17 05:51 08/13/17 05:51 Recent Labs: Laboratory Last Values WBC 9.4 Th/cmm (4.8-10.8) 08/13/17 05:51 RBC 4.36 Mil/cmm (4.30-5.70) 08/13/17 05:51 Hgb 14.5 gm/dL (12-16) 08/13/17 05:51 Hct 42.2 % (41.0-60) 08/13/17 05:51 MCV 96.8 fl (80-99) 08/13/17 05:51 MCH 33.3 pg (26.0-30.0) H 08/13/17 05:51 MCHC Differential 34.4 pg (28.0-36.0) 08/13/17 05:51 RDW 13.1 % (11.5-20.0) 08/13/17 05:51 Plt Count 99 Th/cmm (150-400) L 08/13/17 05:51 MPV 9.2 fl 08/13/17 05:51 Neutrophils % [employer] 08/13/17 05:51 Band Neutrophils % 1 % (0-10) 08/12/17 11:55 Lymphocytes % [employer]ER [employer]PERIENCE ADVISOR 08/13/17 05:51 Monocytes % [employer]ER [employer]PERIENCE ADVISOR 08/13/17 05:51 Eosinophils % [employer]ER EXPERIENCE ADVISOR 08/13/17 05:51 Basophils % [employer]ER [employer]PERIENCE ADVISOR 08/13/17 05:51 Neutrophils (Manual) 78 % (40-80) 08/13/17 05:51 Lymphocytes 14 % (20-50) L 08/13/17 05:51 Monocytes 7 % (2-10) 08/13/17 05:51 Eosinophils 0 % (0-5) 08/12/17 11:55 Basophils 1 % (0-3) 08/13/17 05:51 Platelet Estimate DECREASED PLATELETS (NORMAL) 08/13/17 05:51 PT 11.3 SECONDS (9.5-11.5) 08/12/17 11:55 INR 1.09 (0.5-1.4) 08/12/17 11:55 PTT (Actin FS) 27.6 SECONDS (26.0-38.0) 08/12/17 11:55 Sodium 123 mEq/L (136-145) L 08/13/17 05:51 Potassium 3.9 mEq/L (3.5-5.1) 08/13/17 05:51 Chloride 93 mEq/L (98-107) L 08/13/17 05:51 Carbon Dioxide 23.9 mEq/L (21.0-31.0) 08/13/17 05:51 Anion Gap 10.0 (7.0-16.0) 08/13/17 05:51 BUN 16 mg/dL (7-25) 08/13/17 05:51 Creatinine 0.8 mg/dL (0.7-1.3) 08/13/17 05:51 Est GFR ( Amer) > 60.0 ml/min (>90) 08/13/17 05:51 Est GFR (Non-Af Amer) > 60.0 ml/min 08/13/17 05:51 BUN/Creatinine Ratio 20.0 08/13/17 05:51 Glucose 85 mg/dL (70-105) 08/13/17 05:51 POC Glucose 110 MG/DL (70 - 105) H 08/12/17 14:37 Whole Bld Lactic Acid 1.54 mmol/L (0.60-1.99) 08/12/17 11:55 Uric Acid 3.0 mg/dL (4.4-7.6) L 08/13/17 05:51 Calcium 8.8 mg/dL (8.6-10.3) 08/13/17 05:51 Total Bilirubin 0.6 mg/dL (0.3-1.0) 08/12/17 11:55 AST 13 U/L (13-39) 08/12/17 11:55 ALT 8 U/L (7-52) 08/12/17 11:55 Alkaline Phosphatase 65 U/L (34-104) 08/12/17 11:55 Creatine Kinase 36 U/L (30-223) 08/12/17 11:55 Troponin I < 0.01 ng/mL (0.01-0.05) L 08/12/17 11:55 Total Protein 7.2 gm/dL (6.0-8.3) 08/12/17 11:55 Albumin 4.2 gm/dL (4.2-5.5) 08/12/17 11:55 Globulin 3.0 gm/dL 08/12/17 11:55 Albumin/Globulin Ratio 1.4 (1.0-1.8) 08/12/17 11:55 Amylase 33 U/L (29-103) 08/12/17 11:55 Lipase 10 U/L (11-82) L 08/12/17 11:55 TSH 0.13 uIU/ml (0.34-5.60) L 08/13/17 05:51 Urine Source MIDSTREAM 08/12/17 19:05 Urine Color YELLOW 08/12/17 19:05 Urine Clarity CLEAR (CLEAR) 08/12/17 19:05 Urine pH 5.5 (4.6 - 8.0) 08/12/17 19:05 Ur Specific [place] 1.020 (1.005-1.030) 08/12/17 19:05 Urine Protein TRACE mg/dL (NEGATIVE) 08/12/17 19:05 Urine Glucose (UA) NEGATIVE mg/dL (NEGATIVE) 08/12/17 19:05 Urine Ketones TRACE mg/dL (NEGATIVE) 08/12/17 19:05 Urine Blood NEGATIVE (NEGATIVE) 08/12/17 19:05 Urine Nitrate NEGATIVE (NEGATIVE) 08/12/17 19:05 Urine Bilirubin NEGATIVE (NEGATIVE) 08/12/17 19:05 Urine Urobilinogen 1.0 E.U./dL (0.2 - 1.0) 08/12/17 19:05 Ur Leukocyte Esterase NEGATIVE (NEGATIVE) 08/12/17 19:05 Urine RBC NONE SEEN /hpf (0-5) 08/12/17 19:05 Urine WBC NONE SEEN /hpf (0-5) 08/12/17 19:05 Ur Epithelial Cells NONE SEEN /lpf (FEW) 08/12/17 19:05 Urine Bacteria NONE SEEN /hpf (NONE SEEN) 08/12/17 19:05 - Physical Exam Vitals and I&O: Vital Signs Temp 100.3 F 08/13/17 15:45 Pulse 81 08/13/17 15:45 Resp 18 08/13/17 16:00 BP 114/68 08/13/17 15:45 Pulse Ox 94 08/13/17 15:45 Intake & Output 08/12/17 08/13/17 08/13/17 18:59 06:59 18:59 Intake Total 340 1250 Output Total 800 Balance -460 1250 Weight (lbs) 88.451 kg 62.233 kg 88.451 kg Intake: Intake, IV Amount 50 cefTRIAXone 1 gm In 50 Sodium Chloride 0.9% 50 ml @ 100 mls/hr IV Q24HR [facility] Rx#:[id number] Oral 340 1200 Output: Urine 800 Other: # Bowel Movements 1 Weight Source Standing scale Bedscale Bedscale Active Medications: Current Medications Acetaminophen (Tylenol) 650 mg PO Q6H PRN PRN Reason: Pain (Mild) Stop: 10/11/17 19:51 Last Admin: 08/13/17 18:04 Dose: 650 mg Atenolol (Tenormin) 25 mg PO DAILY [facility] Stop: 10/12/17 08:59 Last Admin: 08/13/17 09:54 Dose: 25 mg Benztropine Mesylate (Cogentin) 2 mg PO BID [facility] Stop: 10/12/17 08:59 Last Admin: 08/13/17 18:01 Dose: 2 mg Bisacodyl (Dulcolax 5 Mg Ec Tab) 10 mg PO BID [facility] Stop: 10/12/17 08:59 Last Admin: 08/13/17 18:01 Dose: 10 mg Buspirone HCl (Buspar) 5 mg PO BID [facility] Stop: 10/12/17 08:59 Last Admin: 08/13/17 18:01 Dose: 5 mg Calcium/Vitamin D (Oscal W/Vitamin D) 1 tab PO DAILY [facility] Stop: 10/12/17 08:59 Last Admin: 08/13/17 09:54 Dose: 1 tab Divalproex Sodium (Depakote Dr) 250 mg PO BID [facility]; Protocol Stop: 10/12/17 08:59 Last Admin: 08/13/17 18:01 Dose: 250 mg Docusate Sodium (Colace) 100 mg PO BID [facility] Stop: 10/12/17 08:59 Last Admin: 08/13/17 18:02 Dose: 100 mg Fludrocortisone Acetate (Florinef) 0.1 mg PO DAILY [facility] Stop: 10/12/17 08:59 Last Admin: 08/13/17 09:54 Dose: 0.1 mg Fluoxetine HCl (Prozac) 20 mg PO DAILY [facility]; Protocol Stop: 10/12/17 08:59 Last Admin: 08/13/17 09:53 Dose: 20 mg Furosemide (Lasix) 20 mg PO DAILY [facility] Stop: 10/12/17 08:59 Last Admin: 08/13/17 09:54 Dose: 20 mg Ceftriaxone Sodium 1 gm/ (Sodium Chloride) 50 mls @ 100 mls/hr IV Q24HR [facility] Stop: 10/12/17 12:59 Last Infusion: 08/13/17 13:44 Dose: Infused Levetiracetam (Keppra) 1,500 mg PO BID [facility] Stop: 10/12/17 08:59 Last Admin: 08/13/17 18:02 Dose: 1,500 mg Levothyroxine Sodium (Synthroid) 0.125 mg PO DAILY [facility] Stop: 10/12/17 08:59 Last Admin: 08/13/17 09:55 Dose: 0.125 mg Magnesium Hydroxide (Milk Of Magnesia) 30 ml PO DAILY PRN PRN Reason: Constipation Stop: 10/11/17 18:11 Miscellaneous (Lurasidone Hcl [Latuda]) 40 mg PO HS [facility] Stop: 10/11/17 20:59 Oxcarbazepine (Trileptal) 600 mg PO BID [facility] Stop: 10/12/17 08:59 Last Admin: 08/13/17 18:02 Dose: 600 mg Pantoprazole Sodium (Protonix) 40 mg PO QDAC [facility] Stop: 10/12/17 07:29 Last Admin: 08/13/17 06:49 Dose: 40 mg Phenyleph/Shark Oil/Glycerin/Petrol (Preparation-H) 0 appl TP QID [facility] Stop: 10/12/17 08:59 Last Admin: 08/13/17 18:02 Dose: 1 appl Psyllium Hydrophilic Mucilloid (Metamucil) 1 pkt PO DAILY [facility] Stop: 10/12/17 08:59 Last Admin: 08/13/17 09:55 Dose: Not Given Sodium Chloride (Nacl Tab) 1 gm PO BID [facility] Stop: 10/12/17 08:59 Last Admin: 08/13/17 18:02 Dose: 1 gm Tamsulosin HCl (Flomax) 0.4 mg PO DAILY [facility] Stop: 10/12/17 08:59 Last Admin: 08/13/17 09:54 Dose: 0.4 mg General: Alert, No acute distress HEENT: PERRLA, EOMI, Mucous membr. moist/pink Neck: Supple, +2 carotid pulse wo bruit Cardiovascular: Regular rate, Normal S1, Normal S2 Lungs: Clear to auscultation Abdomen: Bowel sounds, Soft Extremities: no Edema Neurological: Sensation intact Skin: no Rash Psych/Mental Status: Mood NL Assessment/Plan - Assessment Assessment: SIADH Epilepsy Alzh Dementia Constipation Gastritis Ess Htn Hypothyroid - Plan Plan: Lab - Result Diagrams 08/13/17 05:51 08/13/17 05:51 Current Medications Acetaminophen (Tylenol) 650 mg PO Q6H PRN PRN Reason: Pain (Mild) Stop: 10/11/17 19:51 Last Admin: 08/13/17 18:04 Dose: 650 mg Atenolol (Tenormin) 25 mg PO DAILY [facility] Stop: 10/12/17 08:59 Last Admin: 08/13/17 09:54 Dose: 25 mg Benztropine Mesylate (Cogentin) 2 mg PO BID [facility] Stop: 10/12/17 08:59 Last Admin: 08/13/17 18:01 Dose: 2 mg Bisacodyl (Dulcolax 5 Mg Ec Tab) 10 mg PO BID [facility] Stop: 10/12/17 08:59 Last Admin: 08/13/17 18:01 Dose: 10 mg Buspirone HCl (Buspar) 5 mg PO BID [facility] Stop: 10/12/17 08:59 Last Admin: 08/13/17 18:01 Dose: 5 mg Calcium/Vitamin D (Oscal W/Vitamin D) 1 tab PO DAILY [facility] Stop: 10/12/17 08:59 Last Admin: 08/13/17 09:54 Dose: 1 tab Divalproex Sodium (Depakote Dr) 250 mg PO BID [facility]; Protocol Stop: 10/12/17 08:59 Last Admin: 08/13/17 18:01 Dose: 250 mg Docusate Sodium (Colace) 100 mg PO BID [facility] Stop: 10/12/17 08:59 Last Admin: 08/13/17 18:02 Dose: 100 mg Fludrocortisone Acetate (Florinef) 0.1 mg PO DAILY [facility] Stop: 10/12/17 08:59 Last Admin: 08/13/17 09:54 Dose: 0.1 mg Fluoxetine HCl (Prozac) 20 mg PO DAILY [facility]; Protocol Stop: 10/12/17 08:59 Last Admin: 08/13/17 09:53 Dose: 20 mg Furosemide (Lasix) 20 mg PO DAILY [facility] Stop: 10/12/17 08:59 Last Admin: 08/13/17 09:54 Dose: 20 mg Ceftriaxone Sodium 1 gm/ (Sodium Chloride) 50 mls @ 100 mls/hr IV Q24HR [facility] Stop: 10/12/17 12:59 Last Infusion: 08/13/17 13:44 Dose: Infused Levetiracetam (Keppra) 1,500 mg PO BID [facility] Stop: 10/12/17 08:59 Last Admin: 08/13/17 18:02 Dose: 1,500 mg Levothyroxine Sodium (Synthroid) 0.125 mg PO DAILY [facility] Stop: 10/12/17 08:59 Last Admin: 08/13/17 09:55 Dose: 0.125 mg Magnesium Hydroxide (Milk Of Magnesia) 30 ml PO DAILY PRN PRN Reason: Constipation Stop: 10/11/17 18:11 Miscellaneous (Lurasidone Hcl [Latuda]) 40 mg PO HS [facility] Stop: 10/11/17 20:59 Oxcarbazepine (Trileptal) 600 mg PO BID [facility] Stop: 10/12/17 08:59 Last Admin: 08/13/17 18:02 Dose: 600 mg Pantoprazole Sodium (Protonix) 40 mg PO QDAC [facility] Stop: 10/12/17 07:29 Last Admin: 08/13/17 06:49 Dose: 40 mg Phenyleph/Shark Oil/Glycerin/Petrol (Preparation-H) 0 appl TP QID [facility] Stop: 10/12/17 08:59 Last Admin: 08/13/17 18:02 Dose: 1 appl Psyllium Hydrophilic Mucilloid (Metamucil) 1 pkt PO DAILY [facility] Stop: 10/12/17 08:59 Last Admin: 08/13/17 09:55 Dose: Not Given Sodium Chloride (Nacl Tab) 1 gm PO BID [facility] Stop: 10/12/17 08:59 Last Admin: 08/13/17 18:02 Dose: 1 gm Tamsulosin HCl (Flomax) 0.4 mg PO DAILY [facility] Stop: 10/12/17 08:59 Last Admin: 08/13/17 09:54 Dose: 0.4 mg Lab - Result Diagrams 08/13/17 05:51 08/13/17 05:51 Na still low @ 123 after Hypertonic saline? DC Oxcarbazepine, Protonix, Furosemide, Fluoxetine because these can cause SIADH decrease Levothyroxine to 0.05 mg due to low TSH continue Nacl tabs, Florinef f/u electrolytes
--- NOTE | 2017-08-13 23:34 | History and Physical ---
History of Present Illness - HPI Chief Complaint: altered mental status HPI: 61 year old male from [place] admitted to telemetry due to altered mental status. Vital Signs: Last Vital Signs Temp 99.4 F 08/13/17 20:10 Pulse 75 08/13/17 20:10 Resp 18 08/13/17 20:10 BP 102/63 08/13/17 20:10 Pulse Ox 93 08/13/17 20:10 Past Medical History Other History: seizure dementia Family Medical History - Family Member Mother History Unknown: Yes Ethnicity: Social History Smoke: No Alcohol: None Drugs: None Lives: Shelter - Medications Home Medications: Home Medication Medication Instructions Recorded Type Acetaminophen [Pain Reliever] 1 tab PO Q6H PRN 07/08/17 History Atenolol [Tenormin*] 1 tab PO DAILY 07/08/17 History Benztropine [Cogentin*] 2 mg PO BID 07/08/17 History Bisacodyl [Dulcolax 5 Mg Ec Tab] 2 tab PO BID 07/08/17 History Buspirone HCl 5 tab PO BID 07/08/17 History Calcium Carbonate/Vitamin D3 1 tab PO DAILY 07/08/17 History [Oyster Shell 500-Vit D3 200 Tb] Divalproex Sodium [Depakote] 1 tab PO BID 07/08/17 History Docusate Sodium [Dok] 1 tab PO BID 07/08/17 History FLUoxetine HCL [Prozac*] 1 tab PO DAILY 07/08/17 History Levetiracetam [Keppra] 2 tab PO BID 07/08/17 History Levothyroxine [Synthroid] 1 tab PO DAILY 07/08/17 History Lurasidone HCl [Latuda] 40 mg PO HS 07/08/17 History Magnesium Hydroxide [Milk of 30 ml PO DAILY PRN 07/08/17 History Magnesia] Omeprazole 1 tab PO DAILY 07/08/17 History Oxcarbazepine [Trileptal*] 1 tab PO BID 07/08/17 History Phenyleph/Mineral Oil/Petrolat 1 unit TP QID 07/08/17 History [Major-Prep Hemorrhoidal Oint] Psyllium Husk [Natural Fiber] 1 tab PO DAILY 07/08/17 History Tamsulosin HCl [Flomax] 1 tab PO DAILY 07/08/17 History Fludrocortisone Acetate [Florinef] 0.1 mg PO DAILY tab 07/15/17 Rx Divalproex Sodium [Depakote] 1 tab PO BID 08/12/17 History Furosemide [Lasix] 1 tab PO DAILY 08/12/17 History Sodium Chloride Tab [NaCL Tab] 1 gm PO BID 08/12/17 History - Allergies Allergies/Adverse Reactions: Allergies Allergy/AdvReac Type Severity Reaction Status Date / Time No Known Allergies Allergy Verified 01/30/17 19:57 Review of Systems - Review of Systems Constitutional: Report: Weakness Eyes: Report: No Significant Respiratory: Report: No Significant Cardiovascular: Report: No Significant Neurological: Report: Weakness Physical Exam - Physical Exam HEENT: Report: Ears Nose Throat within normal limits Neck: Report: Within normal limits Cardiovascular Systems: Report: +s1/s2 noted, Regular, Rate and Rhythm Respiratory: Report: Breath Sounds are within normal limits Extremities: Report: Non-tender to palpation. Neuro/Psych: Report: Mood affect is within normal limits - Lab Results All Lab Results last 24 hours: Laboratory Results - last 24 hr 08/13/17 08/13/17 08/13/17 05:51 05:51 05:51 WBC 9.4 RBC 4.36 Hgb 14.5 Hct 42.2 MCV 96.8 MCH 33.3 H MCHC Differential 34.4 RDW 13.1 Plt Count 99 L MPV 9.2 Neutrophils % [employer] Lymphocytes % [employer] Monocytes % [employer] Eosinophils % [employer] Basophils % [employer]ILD[employer] Neutrophils (Manual) 78 Lymphocytes 14 L Monocytes 7 Basophils 1 Platelet Estimate DECREASED PLATELETS Sodium 123 L Potassium 3.9 Chloride 93 L Carbon Dioxide 23.9 Anion Gap 10.0 BUN 16 Creatinine 0.8 Est GFR ( Amer) > 60.0 Est GFR (Non-Af Amer) > 60.0 BUN/Creatinine Ratio 20.0 Glucose 85 Uric Acid 3.0 L Calcium 8.8 TSH 0.13 L Microbiology 08/12/17 13:00 - Final Nares 08/12/17 12:31 - Preliminary Blood NO GROWTH AFTER 24 HOURS 08/12/17 11:55 - Preliminary Blood NO GROWTH AFTER 24 HOURS - Assessment Assessment: ams leukocytosis hyponatremia seizure dementis - Plan Plan: iv rocephin seizure precautions continue the rest of the orders
[2017-08-14 06:07] LABS: BUN - UREA NITROGEN 22 mg/dL (7-25); CALCIUM SERUM 8.6 mg/dL (8.6-10.3); CARBON DIOXIDE 24.6 mEq/L (21.0-31.0); CHLORIDE 96 mEq/L (98-107); CREATININE - SERUM 0.8 mg/dL (0.7-1.3); GFR AFRICAN-AMERICAN > 60.0 ml/min (>90); GFR NON AFRICAN-AMERICAN > 60.0 ml/min; GLUCOSE 83 mg/dL (70-105); POTASSIUM SERUM 3.6 mEq/L (3.5-5.1); SODIUM SERUM 126 mEq/L (136-145)
[2017-08-14] MEDS: PHENYLEPHRINE TP SCH ×2 (08:34→13:53)
[2017-08-14] MEDS: Benztropine 1 MG TAB PO SCH (08:36)
[2017-08-14] MEDS: Calcium Carb/Vit D 500 mg/200 U Tab PO SCH (08:36)
[2017-08-14] MEDS ORDERED: Levothyroxine 0.05 Mg Tab PO SCH (09:00)
[2017-08-14] MEDS: cefTRIAXone 1 GM in Sodium Chloride 0.9% 50 ML IV SCH (13:23)
--- NOTE | 2017-08-14 14:04 | Infectious Disease Prog Note ---
Infectious Disease Subjective - Review of Systems Service Date: 08/14/17 Subjective: Doing better, no fever, Infectious Disease Objective - Results Result Diagrams: 08/13/17 05:51 08/14/17 05:25 Recent Labs: Laboratory Last Values WBC 9.4 Th/cmm (4.8-10.8) 08/13/17 05:51 RBC 4.36 Mil/cmm (4.30-5.70) 08/13/17 05:51 Hgb 14.5 gm/dL (12-16) 08/13/17 05:51 Hct 42.2 % (41.0-60) 08/13/17 05:51 MCV 96.8 fl (80-99) 08/13/17 05:51 MCH 33.3 pg (26.0-30.0) H 08/13/17 05:51 MCHC Differential 34.4 pg (28.0-36.0) 08/13/17 05:51 RDW 13.1 % (11.5-20.0) 08/13/17 05:51 Plt Count 99 Th/cmm (150-400) L 08/13/17 05:51 MPV 9.2 fl 08/13/17 05:51 Neutrophils % TIE IN HAND 08/13/17 05:51 Band Neutrophils % 1 % (0-10) 08/12/17 11:55 Lymphocytes % TIE IN HAND 08/13/17 05:51 Monocytes % TIE IN HAND 08/13/17 05:51 Eosinophils % TIE IN HAND 08/13/17 05:51 Basophils % TIE IN HAND 08/13/17 05:51 Neutrophils (Manual) 78 % (40-80) 08/13/17 05:51 Lymphocytes 14 % (20-50) L 08/13/17 05:51 Monocytes 7 % (2-10) 08/13/17 05:51 Eosinophils 0 % (0-5) 08/12/17 11:55 Basophils 1 % (0-3) 08/13/17 05:51 Platelet Estimate DECREASED PLATELETS (NORMAL) 08/13/17 05:51 PT 11.3 SECONDS (9.5-11.5) 08/12/17 11:55 INR 1.09 (0.5-1.4) 08/12/17 11:55 PTT (Actin FS) 27.6 SECONDS (26.0-38.0) 08/12/17 11:55 Sodium 126 mEq/L (136-145) L 08/14/17 05:25 Potassium 3.6 mEq/L (3.5-5.1) 08/14/17 05:25 Chloride 96 mEq/L (98-107) L 08/14/17 05:25 Carbon Dioxide 24.6 mEq/L (21.0-31.0) 08/14/17 05:25 Anion Gap 9.0 (7.0-16.0) 08/14/17 05:25 BUN 22 mg/dL (7-25) 08/14/17 05:25 Creatinine 0.8 mg/dL (0.7-1.3) 08/14/17 05:25 Est GFR ( Amer) > 60.0 ml/min (>90) 08/14/17 05:25 Est GFR (Non-Af Amer) > 60.0 ml/min 08/14/17 05:25 BUN/Creatinine Ratio 27.5 08/14/17 05:25 Glucose 83 mg/dL (70-105) 08/14/17 05:25 POC Glucose 110 MG/DL (70 - 105) H 08/12/17 14:37 Whole Bld Lactic Acid 1.54 mmol/L (0.60-1.99) 08/12/17 11:55 Uric Acid 3.0 mg/dL (4.4-7.6) L 08/13/17 05:51 Calcium 8.6 mg/dL (8.6-10.3) 08/14/17 05:25 Total Bilirubin 0.6 mg/dL (0.3-1.0) 08/12/17 11:55 AST 13 U/L (13-39) 08/12/17 11:55 ALT 8 U/L (7-52) 08/12/17 11:55 Alkaline Phosphatase 65 U/L (34-104) 08/12/17 11:55 Creatine Kinase 36 U/L (30-223) 08/12/17 11:55 Troponin I < 0.01 ng/mL (0.01-0.05) L 08/12/17 11:55 Total Protein 7.2 gm/dL (6.0-8.3) 08/12/17 11:55 Albumin 4.2 gm/dL (4.2-5.5) 08/12/17 11:55 Globulin 3.0 gm/dL 08/12/17 11:55 Albumin/Globulin Ratio 1.4 (1.0-1.8) 08/12/17 11:55 Amylase 33 U/L (29-103) 08/12/17 11:55 Lipase 10 U/L (11-82) L 08/12/17 11:55 TSH 0.13 uIU/ml (0.34-5.60) L 08/13/17 05:51 Urine Source MIDSTREAM 08/12/17 19:05 Urine Color YELLOW 08/12/17 19:05 Urine Clarity CLEAR (CLEAR) 08/12/17 19:05 Urine pH 5.5 (4.6 - 8.0) 08/12/17 19:05 Ur Specific [place] 1.020 (1.005-1.030) 08/12/17 19:05 Urine Protein TRACE mg/dL (NEGATIVE) 08/12/17 19:05 Urine Glucose (UA) NEGATIVE mg/dL (NEGATIVE) 08/12/17 19:05 Urine Ketones TRACE mg/dL (NEGATIVE) 08/12/17 19:05 Urine Blood NEGATIVE (NEGATIVE) 08/12/17 19:05 Urine Nitrate NEGATIVE (NEGATIVE) 08/12/17 19:05 Urine Bilirubin NEGATIVE (NEGATIVE) 08/12/17 19:05 Urine Urobilinogen 1.0 E.U./dL (0.2 - 1.0) 08/12/17 19:05 Ur Leukocyte Esterase NEGATIVE (NEGATIVE) 08/12/17 19:05 Urine RBC NONE SEEN /hpf (0-5) 08/12/17 19:05 Urine WBC NONE SEEN /hpf (0-5) 08/12/17 19:05 Ur Epithelial Cells NONE SEEN /lpf (FEW) 08/12/17 19:05 Urine Bacteria NONE SEEN /hpf (NONE SEEN) 08/12/17 19:05 - Physical Exam Vitals and I&O: Vital Signs Temp 97.5 F 08/14/17 11:43 Pulse 50 08/14/17 11:43 Resp 18 08/14/17 13:00 BP 140/82 08/14/17 11:43 Pulse Ox 99 08/14/17 11:43 Intake & Output 08/13/17 08/14/17 08/14/17 18:59 06:59 18:59 Intake Total 1250 200 Output Total 600 Balance 1250 -400 Weight (lbs) 88.451 kg 82.554 kg Intake: Intake, IV Amount 50 cefTRIAXone 1 gm In 50 Sodium Chloride 0.9% 50 ml @ 100 mls/hr IV Q24HR [facility] Rx#:[id number] Oral 1200 200 Output: Urine 600 Other: # Voids 2 # Bowel Movements 0 Weight Source Bedscale Bedscale Active Medications: Current Medications Acetaminophen (Tylenol) 650 mg PO Q6H PRN PRN Reason: Pain (Mild) Stop: 10/11/17 19:51 Last Admin: 08/13/17 18:04 Dose: 650 mg Atenolol (Tenormin) 25 mg PO DAILY [facility] Stop: 10/12/17 08:59 Last Admin: 08/14/17 08:35 Dose: 25 mg Benztropine Mesylate (Cogentin) 2 mg PO BID [facility] Stop: 10/12/17 08:59 Last Admin: 08/14/17 08:36 Dose: 2 mg Bisacodyl (Dulcolax 5 Mg Ec Tab) 10 mg PO BID [facility] Stop: 10/12/17 08:59 Last Admin: 08/14/17 08:37 Dose: 10 mg Buspirone HCl (Buspar) 5 mg PO BID [facility] Stop: 10/12/17 08:59 Last Admin: 08/14/17 08:37 Dose: 5 mg Calcium/Vitamin D (Oscal W/Vitamin D) 1 tab PO DAILY [facility] Stop: 10/12/17 08:59 Last Admin: 08/14/17 08:36 Dose: 1 tab Divalproex Sodium (Depakote Dr) 250 mg PO BID [facility]; Protocol Stop: 10/12/17 08:59 Last Admin: 08/14/17 08:36 Dose: 250 mg Docusate Sodium (Colace) 100 mg PO BID [facility] Stop: 10/12/17 08:59 Last Admin: 08/14/17 08:36 Dose: 100 mg Famotidine (Pepcid) 20 mg PO DAILY [facility] Stop: 10/13/17 08:59 Last Admin: 08/14/17 08:36 Dose: 20 mg Fludrocortisone Acetate (Florinef) 0.1 mg PO DAILY [facility] Stop: 10/12/17 08:59 Last Admin: 08/14/17 08:36 Dose: 0.1 mg Ceftriaxone Sodium 1 gm/ (Sodium Chloride) 50 mls @ 100 mls/hr IV Q24HR [facility]ONATHAN Stop: 10/12/17 12:59 Last Admin: 08/14/17 13:23 Dose: 100 mls/hr Levetiracetam (Keppra) 1,500 mg PO BID JONATHAN Stop: 10/12/17 08:59 Last Admin: 08/14/17 08:36 Dose: 1,500 mg Levothyroxine Sodium (Synthroid) 0.05 mg PO QDAC JONATHAN Stop: 10/13/17 08:59 Last Admin: 08/14/17 08:52 Dose: 0.05 mg Magnesium Hydroxide (Milk Of Magnesia) 30 ml PO DAILY PRN PRN Reason: Constipation Stop: 10/11/17 18:11 Miscellaneous (Lurasidone Hcl [Latuda]) 40 mg PO HS JONATHAN Stop: 10/11/17 20:59 Phenyleph/Shark Oil/Glycerin/Petrol (Preparation-H) 0 appl TP QID JONATHAN Stop: 10/12/17 08:59 Last Admin: 08/14/17 13:53 Dose: 1 appl Psyllium Hydrophilic Mucilloid (Metamucil) 1 pkt PO DAILY JONATHAN Stop: 10/12/17 08:59 Last Admin: 08/14/17 08:37 Dose: 1 pkt Sodium Chloride (Nacl Tab) 1 gm PO BID JONATHAN Stop: 10/12/17 08:59 Last Admin: 08/14/17 08:36 Dose: 1 gm Tamsulosin HCl (Flomax) 0.4 mg PO DAILY JONATHAN Stop: 10/12/17 08:59 Last Admin: 08/14/17 08:35 Dose: 0.4 mg General: no acute distress, well developed, well nourished HEENT: atraumatic, normocephalic, PERRLA, EOMI, moist mucous membrane Neck: supple, no thyromegaly Cardiovascular: S1S2, regular, systolic murmur Lungs: clear to auscultation bilaterally, clear to percussion Abdomen: soft, no tender, no distended Extremities: no cyanosis, no clubbing, no edema Neurological: awake, alert, oriented Skin: intact Infectious Disease Assmt/Plan - Assessment Assessment: 1. Leukocytosis, most likely aspiration. 2. Altered mental status. Due to hyponatremia. 3. Hyponatremia. 4. Seizure disorder. 5. Dementia. - Plan Plan: cpm
--- NOTE | 2017-08-14 14:13 | General Progress Note ---
Subjective - Review of Systems Service Date: 08/14/17 Subjective: very awake, following commands Objective - Results Result Diagrams: 08/13/17 05:51 08/14/17 05:25 Recent Labs: Laboratory Last Values WBC 9.4 Th/cmm (4.8-10.8) 08/13/17 05:51 RBC 4.36 Mil/cmm (4.30-5.70) 08/13/17 05:51 Hgb 14.5 gm/dL (12-16) 08/13/17 05:51 Hct 42.2 % (41.0-60) 08/13/17 05:51 MCV 96.8 fl (80-99) 08/13/17 05:51 MCH 33.3 pg (26.0-30.0) H 08/13/17 05:51 MCHC Differential 34.4 pg (28.0-36.0) 08/13/17 05:51 RDW 13.1 % (11.5-20.0) 08/13/17 05:51 Plt Count 99 Th/cmm (150-400) L 08/13/17 05:51 MPV 9.2 fl 08/13/17 05:51 Neutrophils % [employer] 08/13/17 05:51 Band Neutrophils % 1 % (0-10) 08/12/17 11:55 Lymphocytes % [employer] 08/13/17 05:51 Monocytes % [employer] 08/13/17 05:51 Eosinophils % [employer] 08/13/17 05:51 Basophils % [employer] 08/13/17 05:51 Neutrophils (Manual) 78 % (40-80) 08/13/17 05:51 Lymphocytes 14 % (20-50) L 08/13/17 05:51 Monocytes 7 % (2-10) 08/13/17 05:51 Eosinophils 0 % (0-5) 08/12/17 11:55 Basophils 1 % (0-3) 08/13/17 05:51 Platelet Estimate DECREASED PLATELETS (NORMAL) 08/13/17 05:51 PT 11.3 SECONDS (9.5-11.5) 08/12/17 11:55 INR 1.09 (0.5-1.4) 08/12/17 11:55 PTT (Actin FS) 27.6 SECONDS (26.0-38.0) 08/12/17 11:55 Sodium 126 mEq/L (136-145) L 08/14/17 05:25 Potassium 3.6 mEq/L (3.5-5.1) 08/14/17 05:25 Chloride 96 mEq/L (98-107) L 08/14/17 05:25 Carbon Dioxide 24.6 mEq/L (21.0-31.0) 08/14/17 05:25 Anion Gap 9.0 (7.0-16.0) 08/14/17 05:25 BUN 22 mg/dL (7-25) 08/14/17 05:25 Creatinine 0.8 mg/dL (0.7-1.3) 08/14/17 05:25 Est GFR ( Amer) > 60.0 ml/min (>90) 08/14/17 05:25 Est GFR (Non-Af Amer) > 60.0 ml/min 08/14/17 05:25 BUN/Creatinine Ratio 27.5 08/14/17 05:25 Glucose 83 mg/dL (70-105) 08/14/17 05:25 POC Glucose 110 MG/DL (70 - 105) H 08/12/17 14:37 Whole Bld Lactic Acid 1.54 mmol/L (0.60-1.99) 08/12/17 11:55 Uric Acid 3.0 mg/dL (4.4-7.6) L 08/13/17 05:51 Calcium 8.6 mg/dL (8.6-10.3) 08/14/17 05:25 Total Bilirubin 0.6 mg/dL (0.3-1.0) 08/12/17 11:55 AST 13 U/L (13-39) 08/12/17 11:55 ALT 8 U/L (7-52) 08/12/17 11:55 Alkaline Phosphatase 65 U/L (34-104) 08/12/17 11:55 Creatine Kinase 36 U/L (30-223) 08/12/17 11:55 Troponin I < 0.01 ng/mL (0.01-0.05) L 08/12/17 11:55 Total Protein 7.2 gm/dL (6.0-8.3) 08/12/17 11:55 Albumin 4.2 gm/dL (4.2-5.5) 08/12/17 11:55 Globulin 3.0 gm/dL 08/12/17 11:55 Albumin/Globulin Ratio 1.4 (1.0-1.8) 08/12/17 11:55 Amylase 33 U/L (29-103) 08/12/17 11:55 Lipase 10 U/L (11-82) L 08/12/17 11:55 TSH 0.13 uIU/ml (0.34-5.60) L 08/13/17 05:51 Urine Source MIDSTREAM 08/12/17 19:05 Urine Color YELLOW 08/12/17 19:05 Urine Clarity CLEAR (CLEAR) 08/12/17 19:05 Urine pH 5.5 (4.6 - 8.0) 08/12/17 19:05 Ur Specific [place] 1.020 (1.005-1.030) 08/12/17 19:05 Urine Protein TRACE mg/dL (NEGATIVE) 08/12/17 19:05 Urine Glucose (UA) NEGATIVE mg/dL (NEGATIVE) 08/12/17 19:05 Urine Ketones TRACE mg/dL (NEGATIVE) 08/12/17 19:05 Urine Blood NEGATIVE (NEGATIVE) 08/12/17 19:05 Urine Nitrate NEGATIVE (NEGATIVE) 08/12/17 19:05 Urine Bilirubin NEGATIVE (NEGATIVE) 08/12/17 19:05 Urine Urobilinogen 1.0 E.U./dL (0.2 - 1.0) 08/12/17 19:05 Ur Leukocyte Esterase NEGATIVE (NEGATIVE) 08/12/17 19:05 Urine RBC NONE SEEN /hpf (0-5) 08/12/17 19:05 Urine WBC NONE SEEN /hpf (0-5) 08/12/17 19:05 Ur Epithelial Cells NONE SEEN /lpf (FEW) 08/12/17 19:05 Urine Bacteria NONE SEEN /hpf (NONE SEEN) 08/12/17 19:05 - Physical Exam Vitals and I&O: Vital Signs Temp 97.5 F 08/14/17 11:43 Pulse 50 08/14/17 11:43 Resp 18 08/14/17 13:00 BP 140/82 08/14/17 11:43 Pulse Ox 99 08/14/17 11:43 Intake & Output 08/13/17 08/14/17 08/14/17 18:59 06:59 18:59 Intake Total 1250 200 Output Total 600 Balance 1250 -400 Weight (lbs) 88.451 kg 82.554 kg Intake: Intake, IV Amount 50 cefTRIAXone 1 gm In 50 Sodium Chloride 0.9% 50 ml @ 100 mls/hr IV Q24HR [facility] Rx#:[id number] Oral 1200 200 Output: Urine 600 Other: # Voids 2 # Bowel Movements 0 Weight Source Bedscale Bedscale Active Medications: Current Medications Acetaminophen (Tylenol) 650 mg PO Q6H PRN PRN Reason: Pain (Mild) Stop: 10/11/17 19:51 Last Admin: 08/13/17 18:04 Dose: 650 mg Atenolol (Tenormin) 25 mg PO DAILY [facility] Stop: 10/12/17 08:59 Last Admin: 08/14/17 08:35 Dose: 25 mg Benztropine Mesylate (Cogentin) 2 mg PO BID [facility] Stop: 10/12/17 08:59 Last Admin: 08/14/17 08:36 Dose: 2 mg Bisacodyl (Dulcolax 5 Mg Ec Tab) 10 mg PO BID [facility] Stop: 10/12/17 08:59 Last Admin: 08/14/17 08:37 Dose: 10 mg Buspirone HCl (Buspar) 5 mg PO BID [facility] Stop: 10/12/17 08:59 Last Admin: 08/14/17 08:37 Dose: 5 mg Calcium/Vitamin D (Oscal W/Vitamin D) 1 tab PO DAILY [facility] Stop: 10/12/17 08:59 Last Admin: 08/14/17 08:36 Dose: 1 tab Divalproex Sodium (Depakote Dr) 250 mg PO BID [facility]; Protocol Stop: 10/12/17 08:59 Last Admin: 08/14/17 08:36 Dose: 250 mg Docusate Sodium (Colace) 100 mg PO BID [facility] Stop: 10/12/17 08:59 Last Admin: 08/14/17 08:36 Dose: 100 mg Famotidine (Pepcid) 20 mg PO DAILY [facility] Stop: 10/13/17 08:59 Last Admin: 08/14/17 08:36 Dose: 20 mg Fludrocortisone Acetate (Florinef) 0.1 mg PO DAILY [facility] Stop: 10/12/17 08:59 Last Admin: 08/14/17 08:36 Dose: 0.1 mg Ceftriaxone Sodium 1 gm/ (Sodium Chloride) 50 mls @ 100 mls/hr IV Q24HR [facility] Stop: 10/12/17 12:59 Last Admin: 08/14/17 13:23 Dose: 100 mls/hr Levetiracetam (Keppra) 1,500 mg PO BID [facility] Stop: 10/12/17 08:59 Last Admin: 08/14/17 08:36 Dose: 1,500 mg Levothyroxine Sodium (Synthroid) 0.05 mg PO QDAC [facility] Stop: 10/13/17 08:59 Last Admin: 08/14/17 08:52 Dose: 0.05 mg Magnesium Hydroxide (Milk Of Magnesia) 30 ml PO DAILY PRN PRN Reason: Constipation Stop: 10/11/17 18:11 Miscellaneous (Lurasidone Hcl [Latuda]) 40 mg PO HS [facility] Stop: 10/11/17 20:59 Phenyleph/Shark Oil/Glycerin/Petrol (Preparation-H) 0 appl TP QID [facility] Stop: 10/12/17 08:59 Last Admin: 08/14/17 13:53 Dose: 1 appl Psyllium Hydrophilic Mucilloid (Metamucil) 1 pkt PO DAILY [facility] Stop: 10/12/17 08:59 Last Admin: 08/14/17 08:37 Dose: 1 pkt Sodium Chloride (Nacl Tab) 1 gm PO BID [facility] Stop: 10/12/17 08:59 Last Admin: 08/14/17 08:36 Dose: 1 gm Tamsulosin HCl (Flomax) 0.4 mg PO DAILY [facility] Stop: 10/12/17 08:59 Last Admin: 08/14/17 08:35 Dose: 0.4 mg General: Alert, No acute distress HEENT: PERRLA, EOMI, Mucous membr. moist/pink Neck: Supple, +2 carotid pulse wo bruit Cardiovascular: Regular rate, Normal S1, Normal S2 Lungs: Clear to auscultation Abdomen: Bowel sounds, Soft Extremities: no Edema Neurological: Sensation intact Skin: no Rash Psych/Mental Status: Mood NL Assessment/Plan - Assessment Assessment: SIADH Epilepsy Alzh Dementia Constipation Gastritis Ess Htn Hypothyroid - Plan Plan: Lab - Result Diagrams 08/13/17 05:51 08/13/17 05:51 Current Medications Acetaminophen (Tylenol) 650 mg PO Q6H PRN PRN Reason: Pain (Mild) Stop: 10/11/17 19:51 Last Admin: 08/13/17 18:04 Dose: 650 mg Atenolol (Tenormin) 25 mg PO DAILY [facility] Stop: 10/12/17 08:59 Last Admin: 08/13/17 09:54 Dose: 25 mg Benztropine Mesylate (Cogentin) 2 mg PO BID [facility] Stop: 10/12/17 08:59 Last Admin: 08/13/17 18:01 Dose: 2 mg Bisacodyl (Dulcolax 5 Mg Ec Tab) 10 mg PO BID [facility] Stop: 10/12/17 08:59 Last Admin: 08/13/17 18:01 Dose: 10 mg Buspirone HCl (Buspar) 5 mg PO BID [facility] Stop: 10/12/17 08:59 Last Admin: 08/13/17 18:01 Dose: 5 mg Calcium/Vitamin D (Oscal W/Vitamin D) 1 tab PO DAILY [facility] Stop: 10/12/17 08:59 Last Admin: 08/13/17 09:54 Dose: 1 tab Divalproex Sodium (Depakote Dr) 250 mg PO BID [facility]; Protocol Stop: 10/12/17 08:59 Last Admin: 08/13/17 18:01 Dose: 250 mg Docusate Sodium (Colace) 100 mg PO BID [facility] Stop: 10/12/17 08:59 Last Admin: 08/13/17 18:02 Dose: 100 mg Fludrocortisone Acetate (Florinef) 0.1 mg PO DAILY [facility] Stop: 10/12/17 08:59 Last Admin: 08/13/17 09:54 Dose: 0.1 mg Fluoxetine HCl (Prozac) 20 mg PO DAILY [facility]; Protocol Stop: 10/12/17 08:59 Last Admin: 08/13/17 09:53 Dose: 20 mg Furosemide (Lasix) 20 mg PO DAILY [facility] Stop: 10/12/17 08:59 Last Admin: 08/13/17 09:54 Dose: 20 mg Ceftriaxone Sodium 1 gm/ (Sodium Chloride) 50 mls @ 100 mls/hr IV Q24HR [facility] Stop: 10/12/17 12:59 Last Infusion: 08/13/17 13:44 Dose: Infused Levetiracetam (Keppra) 1,500 mg PO BID [facility] Stop: 10/12/17 08:59 Last Admin: 08/13/17 18:02 Dose: 1,500 mg Levothyroxine Sodium (Synthroid) 0.125 mg PO DAILY [facility] Stop: 10/12/17 08:59 Last Admin: 08/13/17 09:55 Dose: 0.125 mg Magnesium Hydroxide (Milk Of Magnesia) 30 ml PO DAILY PRN PRN Reason: Constipation Stop: 10/11/17 18:11 Miscellaneous (Lurasidone Hcl [Latuda]) 40 mg PO HS [facility] Stop: 10/11/17 20:59 Oxcarbazepine (Trileptal) 600 mg PO BID [facility] Stop: 10/12/17 08:59 Last Admin: 08/13/17 18:02 Dose: 600 mg Pantoprazole Sodium (Protonix) 40 mg PO QDAC [facility] Stop: 10/12/17 07:29 Last Admin: 08/13/17 06:49 Dose: 40 mg Phenyleph/Shark Oil/Glycerin/Petrol (Preparation-H) 0 appl TP QID [facility] Stop: 10/12/17 08:59 Last Admin: 08/13/17 18:02 Dose: 1 appl Psyllium Hydrophilic Mucilloid (Metamucil) 1 pkt PO DAILY [facility] Stop: 10/12/17 08:59 Last Admin: 08/13/17 09:55 Dose: Not Given Sodium Chloride (Nacl Tab) 1 gm PO BID [facility] Stop: 10/12/17 08:59 Last Admin: 08/13/17 18:02 Dose: 1 gm Tamsulosin HCl (Flomax) 0.4 mg PO DAILY [facility] Stop: 10/12/17 08:59 Last Admin: 08/13/17 09:54 Dose: 0.4 mg Lab - Result Diagrams 08/13/17 05:51 08/14/17 05:25 Na still low @ 126 DC Oxcarbazepine, Protonix, Furosemide, Fluoxetine because these can cause SIADH decrease Levothyroxine to 0.05 mg due to low TSH continue Nacl tabs, Florinef f/u electrolytes fluid restriction Mental status much improved
== END 2017-08-14 16:55 | disposition home or self-care (01) | DRG 720 ==
LOC: ER 11:13 → TELE 13:06
PROVIDERS: ADMIT Internal Medicine; ATTEND Internal Medicine
DX: A41.9 Sepsis, unspecified organism (principal); G93.41 Metabolic encephalopathy; E22.2 Syndrome of inappropriate secretion of antidiuretic hormone; G40.909 Epilepsy, unspecified, not intractable, without status epilepticus; G30.9 Alzheimer's disease, unspecified; F02.80 Dementia in other diseases classified elsewhere, unspecified severity, without behavioral disturbance, psychotic disturbance, mood disturbance, and anxiety; K59.00 Constipation, unspecified; I10 Essential (primary) hypertension; E03.9 Hypothyroidism, unspecified; K29.70 Gastritis, unspecified, without bleeding; T42.1X5A Adverse effect of iminostilbenes, initial encounter; T43.225A Adverse effect of selective serotonin reuptake inhibitors, initial encounter; T50.1X5A Adverse effect of loop [high-ceiling] diuretics, initial encounter; Y92.89 Other specified places as the place of occurrence of the external cause; Z82.49 Family history of ischemic heart disease and other diseases of the circulatory system
CPT/HCPCS: 36415-UA; 71045-TC; 80048-TC; 80053-TC; 81001-TC; 82150-TC; 82550-TC; 82948-90; 83605; 83690-TC; 83930-90; 84443-TC; 84484-TC; 84550-TC; 85007-TC; 85025-TC; 85027-TC; 85610-TC; 85730-TC; 93005; 96374; J0696; J7030; J7131; Z7610

== ENCOUNTER 2017-09-22 10:20 | Inpatient (IN) | payer MEDICAID ==
[2017-09-22 10:56] LABS: % BASOPHILS 0.3 % (0.0-2.0); % EOSINOPHILS 0.5 % (0.0-5.0); % LYMPHOCYTES 23.7 % (20.0-50.0); % MONOCYTES 12.1 % (2.0-10.0); % NEUTROPHILS 63.4 % (40.0-80.0); HEMATOCRIT 45.7 % (41.0-60); HEMOGLOBIN 15.7 gm/dL (12-16); LYMPHOCYTE ABSOLUTE 1.6 Th/cmm (1.5-3.0); MEAN CORPUSCULAR HEMOGLOBIN 33.2 pg (26.0-30.0); MEAN CORPUSCULAR HGB CONC 34.3 pg (28.0-36.0); MEAN PLATELET VOLUME 8.2 fl; MONOCYTE ABSOLUTE 0.8 Th/cmm (0.3-1.0); NEUTROPHILE ABSOLUTE 4.5 Th/cmm (1.8-8.0); PLATELET COUNT 124 Th/cmm (150-400); RED BLOOD COUNT 4.71 Mil/cmm (4.30-5.70); RED CELL DISTRIBUTION WIDTH 14.7 % (11.5-20.0); WHITE BLOOD COUNT 6.9 Th/cmm (4.8-10.8)
--- NOTE | 2017-09-22 10:58 | ED Physician Chart ---
ED Chief Complaint/HPI - Patient Information Date Seen:: 09/22/17 Time Seen:: 10:33 Chief Complaint:: Malaise History of Present Illness:: onset x 3 days of malaise, weakness, AMS, ALOC, fever, and seizures; no report of trauma, H/As, S/T, neck pain, cough, C/P, SOB, Abd. Pain, A/N/V/D/C, chills, or bleeding Allergies:: Allergies Allergy/AdvReac Type Severity Reaction Status Date / Time No Known Allergies Allergy Verified 01/30/17 19:57 Vitals:: Vital Signs - 8 hr 09/22/17 10:33 Temp 98.1 F HR 85 RR 16 BP 150/114 O2 Sat % 97 Historian:: Patient, Friend Review:: Nurse's Note Reviewed, Old Chart Reviewed ED Review of Systems - Review of Systems General/Constitutional: Fever, No chills, No weight loss, Weakness, No diaphoresis, No edema, No loss of appetite Skin: No skin lesions, No rash, No bruising Head: No headache, No light-headedness Eyes: No loss of vision, No pain, No diplopia ENT: No earache, No nasal drainage, No sore throat, No tinnitus Neck: No neck pain, No swelling, No thyromegaly, No stiffness, No mass noted Cardio Vascular: No chest pain, No palpitations, No PND, No orthopnea, No edema Pulmonary: No SOB, No cough, No sputum, No wheezing GI: No nausea, No vomiting, No diarrhea, No pain, No melena, No hematochezia, No constipation, No hematemesis G/U: Dysuria, No frequency, No hematuria, No nacturia Musculoskeletal: No bone or joint pain, No back pain, No muscle pain Endocrine: No polyuria, No polydipsia Psychiatric: Prior psych history, Depression, Anxiety, No suicidal ideation, No homicidal ideation, No auditory hallucination, No visual hallucination Hematopoietic: No bruising, No lymphadenopathy Allergic/Immuno: No urticaria, No angioedema Neurological: No syncope, No focal symptoms, Weakness, No paresthesia, No headache, Seizure, No dizziness, Confusion, No vertigo ED Past Medical History - Past Medical History Obtainable: Yes Past Medical History: HTN, Seizures, Dementia Family History: HTN Social History: Non Smoker, No Alcohol, No Drug Use, Single, Care Facility Surgical History: None Psychiatricy History: Depression, Bipolar, Dementia Medication: Reviewed Family Medical History - Family Member Mother History Unknown: Yes Ethnicity: ED Physical Exam - Physical Examination General/Constitutional: Awake, Well-developed, well-nourished, Alert, No distress, GCS 15, Non-toxic appearing, Ambulatory Head: Atraumatic Eyes: Lids, conjuctiva normal, PERRL, EOMI Skin: Nl inspection, No rash, No skin lesions, No ecchymosis, Well hydrated, No lymphadenopathy ENMT: External ears, nose nl, TM canals nl, Nasal exam nl, Lips, teeth, gums nl , Oropharynx nl, Tonsils nl Neck: Nontender, Full ROM w/o pain, No JVD, No nuchal rigidity, No bruit, No mass, No stridor Respiratory: Nl effort/Exclusion, Clear to Auscultation, No Wheeze/Rhonchi/Rales Cardio Vascular: RRR, No murmur, gallop, rubs, NL S1 S2, Carotid/Femoral/Distal pulses equal bilaterally GI: No tenderness/rebounding/guarding, No organomegaly, No hernia, Normal BS's, Nondistended, No mass/bruits, No McBurney tenderness : No CVA tenderness Extremities: No tenderness or effusion, Full ROM, normal strength in all extremities, No edema, Normal digits & nails Neuro/Psych: Alert/oriented, DTR's symmetric, Normal sensory exam, Normal motor strength, Judgement/insight normal, Mood normal, Normal gait, No focal deficits Misc: Normal back, No paraspinal tenderness ED Labs/Radiology/EKG Results - Lab Results Comments:: Na+: 131 - Radiology Results Comments:: NAD - EKG Interpretations EKG Time:: 10:42 Rate & Rhythm: 81; NSR Comments:: non-specific st-t changes ED Septic Shock - . Is Septic Shock (SBP<90, OR Lactate>4 mmol\L) present?: No - <6hrs of presentation: Vital Signs: Vital Signs - 8 hr 09/22/17 10:33 Temp 98.1 F HR 85 RR 16 BP 150/114 O2 Sat % 97 ED Reassessment (Disposition) - Reassessment Reassessment Condition:: Improved - Diagnosis Diagnosis:: Weakness; AMS; ALOC; Malaise; Hyponatremia; Epilepsy; Seizures; - Aftercare/Follow up Instructions Aftercare/Follow-Up Instructions:: Counseled pt regarding lab results/diagnosis & need follow up, Counseled pt & family regarding lab results/diagnosis & need follow up - Patient Disposition Discharge/Transfer:: Acute Care w/in this hosp Accepting Physician:: Dr. Franz Time Called:: 1230 Time Responded:: 12:30 Admitted to:: Telemetry Spoke to:: Dr. Franz Admitting Medical Physician:: Dr. Franz Condition at Disposition:: Stable, Improved
[2017-09-22 11:08] LABS: INR 1.02 (0.5-1.4); PROTHROMBIN TIME (TEST) 10.6 SECONDS (9.5-11.5)
[2017-09-22 11:17] LABS: ALB/GLOB RATIO 1.3 (1.0-1.8); ALBUMIN 4.3 gm/dL (4.2-5.5); ALKALINE PHOSPHATASE 65 U/L (34-104); ANION GAP 11.5 (7.0-16.0); BILIRUBIN,TOTAL 0.5 mg/dL (0.3-1.0); BUN - UREA NITROGEN 12 mg/dL (7-25); CALCIUM SERUM 9.8 mg/dL (8.6-10.3); CARBON DIOXIDE 24.3 mEq/L (21.0-31.0); CHLORIDE 99 mEq/L (98-107); CREATININE - SERUM 0.9 mg/dL (0.7-1.3); CREATININE KINASE 135 U/L (30-223); GFR AFRICAN-AMERICAN > 60.0 ml/min (>90); GFR NON AFRICAN-AMERICAN > 60.0 ml/min; GLUCOSE 84 mg/dL (70-105); POTASSIUM SERUM 3.8 mEq/L (3.5-5.1); SGOT 25 U/L (13-39); SGPT/ALT 14 U/L (7-52); SODIUM SERUM 131 mEq/L (136-145); TOTAL PROTEIN,SERUM 7.7 gm/dL (6.0-8.3); TROP I < 0.01 ng/mL (0.01-0.05)
[2017-09-22 12:08] LABS: URINE SOURCE MIDSTREAM
[2017-09-22 12:11] LABS: URINE BILIRUBIN NEGATIVE (NEGATIVE); URINE BLOOD NEGATIVE (NEGATIVE); URINE GLUCOSE (UA) NEGATIVE (NEGATIVE); URINE KETONE NEGATIVE (NEGATIVE); URINE LEUKOCYTE ESTERASE NEGATIVE (NEGATIVE); URINE NITRATE NEGATIVE (NEGATIVE); URINE PH 7.5 (4.6 - 8.0); URINE PROTEIN NEGATIVE (NEGATIVE); URINE UROBILINOGEN 0.2 E.U./dL (0.2 - 1.0)
[2017-09-22 12:20] LABS: URINE CLARITY CLEAR (CLEAR); URINE COLOR YELLOW; URINE MICROSCOPIC INDICATED? NO
--- NOTE | 2017-09-22 13:28 | Diagnostic Imaging Report ---
Portable chest x-ray HISTORY: Pain The overall heart size is difficult to assess due to a poor inspiration and portable technique. No focal prominent processes. No hilar or mediastinal abnormalities. Scoliosis of the thoracic spine. IMPRESSION: 1. No acute focal pulmonary processes
[2017-09-22 15:13] VITALS: BP 149/83
[2017-09-22] MEDS: Sodium Chloride 0.9% 1,000 ML IV SCH (15:47)
[2017-09-22] MEDS ORDERED: INSULIN ASPART SLIDING SCALE 100 UNITS/ML UNIT SUBQ SCH (21:00)
[2017-09-23] MEDS: Sodium Chloride 0.9% 1,000 ML IV SCH ×2 (03:17→14:59)
[2017-09-23 06:05] LABS: HEMATOCRIT 44.1 % (41.0-60); HEMOGLOBIN 14.9 gm/dL (12-16); MEAN CELL VOLUME 98.7 fl (80-99); MEAN CORPUSCULAR HEMOGLOBIN 33.3 pg (26.0-30.0); MEAN CORPUSCULAR HGB CONC 33.8 pg (28.0-36.0); MEAN PLATELET VOLUME 9.1 fl; PLATELET COUNT 106 Th/cmm (150-400); RED BLOOD COUNT 4.47 Mil/cmm (4.30-5.70); RED CELL DISTRIBUTION WIDTH 14.3 % (11.5-20.0)
[2017-09-23 06:29] LABS: ALB/GLOB RATIO 1.2 (1.0-1.8); ALBUMIN 3.7 gm/dL (4.2-5.5); ALKALINE PHOSPHATASE 55 U/L (34-104); ANION GAP 8.7 (7.0-16.0); BILIRUBIN,TOTAL 0.6 mg/dL (0.3-1.0); BUN - UREA NITROGEN 11 mg/dL (7-25); CALCIUM SERUM 9.1 mg/dL (8.6-10.3); CHLORIDE 100 mEq/L (98-107); CREATININE - SERUM 0.8 mg/dL (0.7-1.3); GFR AFRICAN-AMERICAN > 60.0 ml/min (>90); GFR NON AFRICAN-AMERICAN > 60.0 ml/min; GLUCOSE 83 mg/dL (70-105); POTASSIUM SERUM 3.7 mEq/L (3.5-5.1); SGOT 33 U/L (13-39); SGPT/ALT 13 U/L (7-52); SODIUM SERUM 130 mEq/L (136-145); TOTAL PROTEIN,SERUM 6.7 gm/dL (6.0-8.3)
[2017-09-23 06:48] LABS: BAND NEUTROPHILE 1 % (0-10); BASOPHIL 0 % (0-3); EOSINOPHIL 0 % (0-5); LYMPHOCYTE 28 % (20-50); MONOCYTE 11 % (2-10); NEUTROPHILS 60 % (40-80)
[2017-09-23] MEDS ORDERED: Magnesium Hydroxide (MOM) 30 mL UDC PO PRN (13:42)
[2017-09-23] MEDS ORDERED: LEVETIRACETAM PO SCH (17:00)
[2017-09-23] MEDS ORDERED: Benztropine 1 MG TAB PO SCH (17:00)
[2017-09-23] MEDS ORDERED: BUSPIRONE HCL PO SCH (17:00)
[2017-09-23] MEDS: Benztropine 1 MG TAB PO SCH (17:25)
[2017-09-23] MEDS: PHENYLEPHRINE TP SCH ×2 (17:33→21:00)
--- NOTE | 2017-09-23 21:10 | History & Physical ---
ADMIT DATE: HISTORY OF PRESENT ILLNESS: The patient came through the Emergency Room complaining of altered level of consciousness, weakness, malaise, and the patient was found to have hyponatremia, and also the patient supposedly had seizure. The patient was postictal, was admitted. PAST MEDICAL HISTORY: The patient has a history of persistent hyponatremia, history of mental challenge, also has a history of seizures. The patient had no other problem. REVIEW OF SYSTEMS: Otherwise, negative. PAST MEDICAL HISTORY: Hypertension, dementia, and seizure. PHYSICAL EXAMINATION: GENERAL: Awake, alert, oriented, male patient. VITAL SIGNS: As noted in chart. HEAD: Normal. ENT: Normal. NECK: Supple, nontender. LUNGS: Clear. CARDIOVASCULAR SYSTEM: S1, S2 heard. ABDOMEN: Soft. Bowel sounds are heard. CENTRAL NERVOUS SYSTEM: Slight lethargy. LABORATORY DATA: Sodium was 131. The patient's temperature was 98, blood pressure was high at 150/114. DIAGNOSES: Severe weakness, altered mental status, toxic metabolic encephalopathy, hyponatremia, malaise, history of epilepsy, postictal state, history of uncontrolled hypertension. PLAN: The patient is being admitted. I will have Dr. Boss see the patient on consult. I will follow the patient. JOB# [id number]
--- NOTE | 2017-09-23 23:06 | Consultation ---
DATE OF CONSULTATION: 09/23/2017 ATTENDING: Faye Franz M.D. MOTOR RACER: Chadd Boss M.D. REASON FOR CONSULTATION: Chronic hyponatremia, also electrolyte imbalance, and fluid management. HISTORY OF PRESENT ILLNESS: This is a 61-year-old male with past medical history of essential hypertension, was brought in because of altered level of consciousness. Three days prior to admission, the patient was observed to be very weak. This was associated with easy fatigability and malaise. A few hours prior to admission, he continued to be more weak with malaise. He was observed to be less responsive as usual. Thus, he was brought to the Emergency Room. He had no further fevers/chills, nausea and vomiting as well as diarrhea. His sodium was 131. EKG of normal sinus rhythm. Chest x-ray with no acute disease. PAST MEDICAL HISTORY: 1. Essential hypertension. 2. Epilepsy. 3. Alzheimer dementia. 4. Depression. 5. Bipolar disorder. 6. Chronic hyponatremia. CURRENT MEDICATIONS: He is currently on acetaminophen, atenolol, benztropine, bisacodyl, buspirone, calcium carbonate, divalproex, docusate sodium, famotidine, fludrocortisone, aspart, levetiracetam, levothyroxine, Latuda, magnesium hydroxide, omeprazole, sodium chloride tablets, tamsulosin. ALLERGIES: No known drug allergies. SOCIAL AND FAMILY HISTORY: I was unable to obtain directly from the patient because he was not able to respond to my inquiries. REVIEW OF SYSTEMS: Again, I was not able to decipher directly from the patient because of this same reason. PHYSICAL EXAMINATION: GENERAL: The patient is awake, somewhat agitated, anxious, quite verbal and confused. VITAL SIGNS: His temperature is 97.2 degrees, pulse is 78, blood pressure 145/83. SKIN: Poor turgor, warm, no rash, no jaundice appreciated. HEENT: Head normocephalic, atraumatic. Eyes: Extraocular muscles are intact. Pupils equal, round, reactive to light and accommodates. Anicteric sclerae. Pale conjunctivae. Nose, midline nasal septum. Mouth, dry mucosa with poor dentition. NECK: Supple, no adenopathy, no thyromegaly, no bruits. Trachea palpated in the midline. CHEST AND CARDIOVASCULAR: S1, S2. No rub, murmur or gallop appreciated. Point of maximal impulse fifth intercostal space, left midclavicular line. No abdominal or femoral bruits appreciated. LUNGS: Equal expansion. No use of accessory muscles. No supraclavicular retractions. Decreased breath sounds, few rales, but no wheezes appreciated. ABDOMEN: Globular, soft. Positive for bowel sounds. No bruits either diastolic or systolic. RECTAL: The patient refused. GENITOURINARY: The patient also refused. MUSCULOSKELETAL: No effusions present in his joints with adequate range of motion. EXTREMITIES: No evidence of any edema, cyanosis nor clubbing. Palpable femoral, but unable to fully appreciate popliteal and dorsalis pedis pulses. NEUROLOGIC: As mentioned, the patient is awake, but confused and verbalizing. The patient was not able to comprehend by neuro commands, so I was not able to pursue further my neuro exam. LABORATORY DATA: Labs did reveal white count 6, hemoglobin 14.9, hematocrit 44.1, platelets 106. Sodium 130, potassium 3.6, chloride 97, bicarbonate 25, BUN 11, creatinine 0.8, glucose 83. Lactic acid 1.28, calcium 9.1, albumin 3.7. IMPRESSION: 1. Chronic hyponatremia. This is likely a chronic condition. The patient has been on Florinef and also as sodium chloride tablets at the [facility]. I doubt that his hyponatremia at the level of 130 could have caused his lethargy and weakness. 2. Lethargy, weakness and malaise secondary to metabolic in nature due to severe dehydration. The possibility also of medication-induced because the patient is currently on multiple psychotropic medications that could contribute to his altered level of consciousness. 3. Hypothyroidism. 4. Essential hypertension. 5. Epilepsy. 6. Alzheimer dementia. 7. Depression. 8. Bipolar disorder. 9. Hyponatremia. PLAN: 1. Continue with IV fluids. 2. Continue on Florinef. 3. Maintain patient on sodium chloride tablets. 4. Urine sodium. 5. Serum osmolality, serum uric acid, serum sodium. 6. If the patient has no improvement in his confusion, malaise and weakness, consider CT scan of the head. [facility]# [id number]
[2017-09-24] MEDS: Sodium Chloride 0.9% 1,000 ML IV SCH (02:05)
[2017-09-24 05:33] LABS: BASOPHILE ABSOLUTE 0.3 Th/cumm (0-0.2); HEMOGLOBIN 16.1 gm/dL (12-16); LYMPHOCYTE ABSOLUTE 2.6 Th/cmm (1.5-3.0); MEAN CELL VOLUME 96.7 fl (80-99); MEAN CORPUSCULAR HEMOGLOBIN 33.1 pg (26.0-30.0); MEAN CORPUSCULAR HGB CONC 34.2 pg (28.0-36.0); MEAN PLATELET VOLUME 9.1 fl; MONOCYTE ABSOLUTE 2.4 Th/cmm (0.3-1.0); NEUTROPHILE ABSOLUTE 7.1 Th/cmm (1.8-8.0); PLATELET COUNT 107 Th/cmm (150-400); RED BLOOD COUNT 4.86 Mil/cmm (4.30-5.70)
[2017-09-24 05:41] LABS: WHITE BLOOD COUNT 12.4 Th/cmm (4.8-10.8)
[2017-09-24 05:51] LABS: ALB/GLOB RATIO 1.2 (1.0-1.8); ALBUMIN 4.1 gm/dL (4.2-5.5); ALKALINE PHOSPHATASE 59 U/L (34-104); ANION GAP 12.2 (7.0-16.0); BILIRUBIN,TOTAL 0.7 mg/dL (0.3-1.0); BUN - UREA NITROGEN 15 mg/dL (7-25); CALCIUM SERUM 9.5 mg/dL (8.6-10.3); CARBON DIOXIDE 21.6 mEq/L (21.0-31.0); CHLORIDE 99 mEq/L (98-107); GFR AFRICAN-AMERICAN > 60.0 ml/min (>90); GFR NON AFRICAN-AMERICAN > 60.0 ml/min; GLUCOSE 88 mg/dL (70-105); POTASSIUM SERUM 3.8 mEq/L (3.5-5.1); SGOT 40 U/L (13-39); SGPT/ALT 15 U/L (7-52); SODIUM SERUM 129 mEq/L (136-145); TOTAL PROTEIN,SERUM 7.4 gm/dL (6.0-8.3)
[2017-09-24] MEDS: Levothyroxine 0.05 Mg Tab PO SCH (06:38)
[2017-09-24 07:04] LABS: LYMPHOCYTE 22 % (20-50); MONOCYTE 23 % (2-10); NEUTROPHILS 55 % (40-80); PLATELET ESTIMATE DECREASED PLATELETS (NORMAL)
[2017-09-24] MEDS ORDERED: Levothyroxine 0.05 Mg Tab PO SCH (07:30)
[2017-09-24] MEDS: PHENYLEPHRINE TP SCH ×3 (09:00→17:00)
[2017-09-24] MEDS: Benztropine 1 MG TAB PO SCH ×2 (09:00→18:31)
[2017-09-24] MEDS: Calcium Carb/Vit D 500 mg/200 U Tab PO SCH (09:01)
[2017-09-24] MEDS: Pantoprazole 40 mg EC Tab PO SCH (09:01)
--- NOTE | 2017-09-24 15:30 | General Progress Note ---
Subjective - Review of Systems Service Date: 09/24/17 Subjective: awake, still verbal, confused Objective - Results Result Diagrams: 09/24/17 05:15 09/24/17 05:15 Recent Labs: Laboratory Last Values WBC 12.4 Th/cmm (4.8-10.8) H D 09/24/17 05:15 RBC 4.86 Mil/cmm (4.30-5.70) 09/24/17 05:15 Hgb 16.1 gm/dL (12-16) 09/24/17 05:15 Hct 47.0 % (41.0-60) 09/24/17 05:15 MCV 96.7 fl (80-99) 09/24/17 05:15 MCH 33.1 pg (26.0-30.0) H 09/24/17 05:15 MCHC Differential 34.2 pg (28.0-36.0) 09/24/17 05:15 RDW 15.0 % (11.5-20.0) 09/24/17 05:15 Plt Count 107 Th/cmm (150-400) L 09/24/17 05:15 MPV 9.1 fl 09/24/17 05:15 Add Manual Diff YES 09/24/17 05:15 Neutrophils % 63.4 % (40.0-80.0) 09/22/17 10:45 Band Neutrophils % 1 % (0-10) 09/23/17 05:15 Lymphocytes % 23.7 % (20.0-50.0) 09/22/17 10:45 Monocytes % 12.1 % (2.0-10.0) H 09/22/17 10:45 Eosinophils % 0.5 % (0.0-5.0) 09/22/17 10:45 Basophils % 0.3 % (0.0-2.0) 09/22/17 10:45 Neutrophils (Manual) 55 % (40-80) 09/24/17 05:15 Lymphocytes 22 % (20-50) 09/24/17 05:15 Monocytes 23 % (2-10) H 09/24/17 05:15 Eosinophils 0 % (0-5) 09/23/17 05:15 Basophils 0 % (0-3) 09/23/17 05:15 Platelet Estimate DECREASED PLATELETS (NORMAL) 09/24/17 05:15 PT 10.6 SECONDS (9.5-11.5) 09/22/17 10:45 INR 1.02 (0.5-1.4) 09/22/17 10:45 PTT (Actin FS) 28.5 SECONDS (26.0-38.0) 09/22/17 10:45 Sodium 129 mEq/L (136-145) L 09/24/17 05:15 Potassium 3.8 mEq/L (3.5-5.1) 09/24/17 05:15 Chloride 99 mEq/L (98-107) 09/24/17 05:15 Carbon Dioxide 21.6 mEq/L (21.0-31.0) 09/24/17 05:15 Anion Gap 12.2 (7.0-16.0) 09/24/17 05:15 BUN 15 mg/dL (7-25) 09/24/17 05:15 Creatinine 1.0 mg/dL (0.7-1.3) 09/24/17 05:15 Est GFR ( Amer) > 60.0 ml/min (>90) 09/24/17 05:15 Est GFR (Non-Af Amer) > 60.0 ml/min 09/24/17 05:15 BUN/Creatinine Ratio 15.0 09/24/17 05:15 Glucose 88 mg/dL (70-105) 09/24/17 05:15 Whole Bld Lactic Acid 1.28 mmol/L (0.60-1.99) 09/22/17 10:45 Uric Acid 4.0 mg/dL (4.4-7.6) L 09/24/17 05:15 Calcium 9.5 mg/dL (8.6-10.3) 09/24/17 05:15 Total Bilirubin 0.7 mg/dL (0.3-1.0) 09/24/17 05:15 AST 40 U/L (13-39) H 09/24/17 05:15 ALT 15 U/L (7-52) 09/24/17 05:15 Alkaline Phosphatase 59 U/L (34-104) 09/24/17 05:15 Creatine Kinase 135 U/L (30-223) 09/22/17 10:45 Troponin I < 0.01 ng/mL (0.01-0.05) L 09/22/17 10:45 Total Protein 7.4 gm/dL (6.0-8.3) 09/24/17 05:15 Albumin 4.1 gm/dL (4.2-5.5) L 09/24/17 05:15 Globulin 3.3 gm/dL 09/24/17 05:15 Albumin/Globulin Ratio 1.2 (1.0-1.8) 09/24/17 05:15 TSH 2.74 uIU/ml (0.34-5.60) 09/24/17 05:15 Urine Source MIDSTREAM 09/22/17 11:50 Urine Color YELLOW 09/22/17 11:50 Urine Clarity CLEAR (CLEAR) 09/22/17 11:50 Urine pH 7.5 (4.6 - 8.0) 09/22/17 11:50 Ur Specific [place] 1.010 (1.005-1.030) 09/22/17 11:50 Urine Protein NEGATIVE mg/dL (NEGATIVE) 09/22/17 11:50 Urine Glucose (UA) NEGATIVE mg/dL (NEGATIVE) 09/22/17 11:50 Urine Ketones NEGATIVE mg/dL (NEGATIVE) 09/22/17 11:50 Urine Blood NEGATIVE (NEGATIVE) 09/22/17 11:50 Urine Nitrate NEGATIVE (NEGATIVE) 09/22/17 11:50 Urine Bilirubin NEGATIVE (NEGATIVE) 09/22/17 11:50 Urine Urobilinogen 0.2 E.U./dL (0.2 - 1.0) 09/22/17 11:50 Ur Leukocyte Esterase NEGATIVE (NEGATIVE) 09/22/17 11:50 - Physical Exam Vitals and I&O: Vital Signs Temp 98.1 F 09/24/17 11:36 Pulse 83 09/24/17 11:36 Resp 21 09/24/17 13:00 BP 133/89 09/24/17 11:36 Pulse Ox 95 09/24/17 11:36 Intake & Output 09/23/17 09/24/17 09/24/17 18:59 06:59 18:59 Intake Total 1000 1300 Output Total 2700 Balance 1000 -1400 Weight (lbs) 86.636 kg Intake: Intake, IV Amount 1000 1000 Sodium Chloride 0.9% 1, 1000 1000 000 ml @ 100 mls/hr IV . Q10H [facility] Rx#:[id number] Oral 300 Output: Urine 2700 Other: # Bowel Movements 2 Stool Characteristics Soft Liquid Weight Source Bedscale Active Medications: Current Medications Acetaminophen (Tylenol) 650 mg PO Q6H PRN PRN Reason: Pain (Mild) Stop: 11/22/17 11:17 Last Admin: 09/24/17 04:23 Dose: 650 mg Amlodipine Besylate (Norvasc) 10 mg PO DAILY [facility] Stop: 11/23/17 15:29 Atenolol (Tenormin) 25 mg PO DAILY [facility] Stop: 11/23/17 08:59 Last Admin: 09/24/17 09:02 Dose: 25 mg Benztropine Mesylate (Cogentin) 2 mg PO BID [facility] Stop: 11/22/17 16:59 Last Admin: 09/24/17 09:00 Dose: 2 mg Bisacodyl (Dulcolax 5 Mg Ec Tab) 10 mg PO BID [facility] Stop: 11/22/17 16:59 Last Admin: 09/24/17 13:21 Dose: Not Given Buspirone HCl (Buspar) 5 mg PO BID [facility]; Protocol Stop: 11/22/17 16:59 Last Admin: 09/24/17 09:02 Dose: 5 mg Calcium/Vitamin D (Oscal W/Vitamin D) 1 tab PO DAILY [facility] Stop: 11/23/17 08:59 Last Admin: 09/24/17 09:01 Dose: 1 tab Divalproex Sodium (Depakote Dr) 250 mg PO BID [facility]; Protocol Stop: 11/22/17 16:59 Last Admin: 09/24/17 09:00 Dose: 250 mg Docusate Sodium (Colace) 100 mg PO BID [facility] Stop: 11/22/17 16:59 Last Admin: 09/24/17 13:22 Dose: Not Given Famotidine (Pepcid) 20 mg PO DAILY [facility] Stop: 11/23/17 08:59 Last Admin: 09/24/17 09:01 Dose: 20 mg Fludrocortisone Acetate (Florinef) 0.1 mg PO DAILY [facility] Stop: 11/23/17 08:59 Last Admin: 09/24/17 09:04 Dose: 0.1 mg Levetiracetam (Keppra) 1,500 mg PO BID [facility] Stop: 11/22/17 16:59 Last Admin: 09/24/17 08:58 Dose: 1,500 mg Levothyroxine Sodium (Synthroid) 0.05 mg PO QDAC JONATHAN Stop: 11/23/17 07:29 Last Admin: 09/24/17 06:38 Dose: 0.05 mg Magnesium Hydroxide (Milk Of Magnesia) 30 ml PO DAILY PRN PRN Reason: Constipation Stop: 11/22/17 13:41 Last Admin: 09/23/17 20:59 Dose: 30 ml Miscellaneous (Lurasidone Hcl [Latuda]) 40 mg PO HS JONATHAN Stop: 11/22/17 20:59 Pantoprazole Sodium (Protonix) 40 mg PO DAILY [facility] Stop: 11/23/17 08:59 Last Admin: 09/24/17 09:01 Dose: 40 mg Phenyleph/Shark Oil/Glycerin/Petrol (Preparation-H) 1 appl TP QID JONATHAN Stop: 11/22/17 16:59 Last Admin: 09/23/17 21:00 Dose: 1 appl Psyllium Hydrophilic Mucilloid (Metamucil) 1 pkt PO DAILY [facility] Stop: 11/23/17 08:59 Last Admin: 09/24/17 09:00 Dose: 1 pkt Sodium Chloride (Nacl Tab) 2 gm PO TID JONATHAN Stop: 11/23/17 13:59 Last Admin: 09/24/17 13:33 Dose: 2 gm Tamsulosin HCl (Flomax) 0.4 mg PO DAILY [facility] Stop: 11/23/17 08:59 Last Admin: 09/24/17 09:00 Dose: 0.4 mg General: Alert, No acute distress HEENT: Atraumatic, Mucous membr. moist/pink Neck: Supple, +2 carotid pulse wo bruit Cardiovascular: Regular rate, Normal S1, Normal S2 Lungs: Clear to auscultation Abdomen: Bowel sounds, Soft Extremities: no Edema Neurological: Sensation intact Skin: no Rash Psych/Mental Status: Other (confused) Assessment/Plan - Assessment Assessment: Chronic Hyponatremia Metab Enceph Hypothyroid Ess Htn Epilepsy Alzh Dementia Depression - Plan Plan: Lab - Result Diagrams 09/24/17 05:15 09/24/17 05:15 Current Medications Acetaminophen (Tylenol) 650 mg PO Q6H PRN PRN Reason: Pain (Mild) Stop: 11/22/17 11:17 Last Admin: 09/24/17 04:23 Dose: 650 mg Amlodipine Besylate (Norvasc) 10 mg PO DAILY [facility] Stop: 11/23/17 15:29 Atenolol (Tenormin) 25 mg PO DAILY [facility] Stop: 11/23/17 08:59 Last Admin: 09/24/17 09:02 Dose: 25 mg Benztropine Mesylate (Cogentin) 2 mg PO BID [facility] Stop: 11/22/17 16:59 Last Admin: 09/24/17 09:00 Dose: 2 mg Bisacodyl (Dulcolax 5 Mg Ec Tab) 10 mg PO BID [facility] Stop: 11/22/17 16:59 Last Admin: 09/24/17 13:21 Dose: Not Given Buspirone HCl (Buspar) 5 mg PO BID [facility]; Protocol Stop: 11/22/17 16:59 Last Admin: 09/24/17 09:02 Dose: 5 mg Calcium/Vitamin D (Oscal W/Vitamin D) 1 tab PO DAILY [facility] Stop: 11/23/17 08:59 Last Admin: 09/24/17 09:01 Dose: 1 tab Divalproex Sodium (Depakote Dr) 250 mg PO BID [facility]; Protocol Stop: 11/22/17 16:59 Last Admin: 09/24/17 09:00 Dose: 250 mg Docusate Sodium (Colace) 100 mg PO BID [facility] Stop: 11/22/17 16:59 Last Admin: 09/24/17 13:22 Dose: Not Given Famotidine (Pepcid) 20 mg PO DAILY [facility] Stop: 11/23/17 08:59 Last Admin: 09/24/17 09:01 Dose: 20 mg Fludrocortisone Acetate (Florinef) 0.1 mg PO DAILY [facility] Stop: 11/23/17 08:59 Last Admin: 09/24/17 09:04 Dose: 0.1 mg Levetiracetam (Keppra) 1,500 mg PO BID [facility] Stop: 11/22/17 16:59 Last Admin: 09/24/17 08:58 Dose: 1,500 mg Levothyroxine Sodium (Synthroid) 0.05 mg PO QDAC [facility] Stop: 11/23/17 07:29 Last Admin: 09/24/17 06:38 Dose: 0.05 mg Magnesium Hydroxide (Milk Of Magnesia) 30 ml PO DAILY PRN PRN Reason: Constipation Stop: 11/22/17 13:41 Last Admin: 09/23/17 20:59 Dose: 30 ml Miscellaneous (Lurasidone Hcl [Latuda]) 40 mg PO HS [facility] Stop: 11/22/17 20:59 Pantoprazole Sodium (Protonix) 40 mg PO DAILY [facility] Stop: 11/23/17 08:59 Last Admin: 09/24/17 09:01 Dose: 40 mg Phenyleph/Shark Oil/Glycerin/Petrol (Preparation-H) 1 appl TP QID [facility]ON[facility] Stop: 11/22/17 16:59 Last Admin: 09/23/17 21:00 Dose: 1 appl Psyllium Hydrophilic Mucilloid (Metamucil) 1 pkt PO DAILY [facility] Stop: 11/23/17 08:59 Last Admin: 09/24/17 09:00 Dose: 1 pkt Sodium Chloride (Nacl Tab) 2 gm PO TID [facility] Stop: 11/23/17 13:59 Last Admin: 09/24/17 13:33 Dose: 2 gm Tamsulosin HCl (Flomax) 0.4 mg PO DAILY [facility] Stop: 11/23/17 08:59 Last Admin: 09/24/17 09:00 Dose: 0.4 mg Lab - Result Diagrams 09/24/17 05:15 09/24/17 05:15 Na down to 129 will DC IVF for now f/u electrolytes
--- NOTE | 2017-09-24 16:03 | General Progress Note ---
Subjective - Review of Systems Subjective: patient is c/o's of weakness and malaise Objective - Results Result Diagrams: 09/24/17 05:15 09/24/17 05:15 Recent Labs: Laboratory Last Values WBC 12.4 Th/cmm (4.8-10.8) H D 09/24/17 05:15 RBC 4.86 Mil/cmm (4.30-5.70) 09/24/17 05:15 Hgb 16.1 gm/dL (12-16) 09/24/17 05:15 Hct 47.0 % (41.0-60) 09/24/17 05:15 MCV 96.7 fl (80-99) 09/24/17 05:15 MCH 33.1 pg (26.0-30.0) H 09/24/17 05:15 MCHC Differential 34.2 pg (28.0-36.0) 09/24/17 05:15 RDW 15.0 % (11.5-20.0) 09/24/17 05:15 Plt Count 107 Th/cmm (150-400) L 09/24/17 05:15 MPV 9.1 fl 09/24/17 05:15 Add Manual Diff YES 09/24/17 05:15 Neutrophils % 63.4 % (40.0-80.0) 09/22/17 10:45 Band Neutrophils % 1 % (0-10) 09/23/17 05:15 Lymphocytes % 23.7 % (20.0-50.0) 09/22/17 10:45 Monocytes % 12.1 % (2.0-10.0) H 09/22/17 10:45 Eosinophils % 0.5 % (0.0-5.0) 09/22/17 10:45 Basophils % 0.3 % (0.0-2.0) 09/22/17 10:45 Neutrophils (Manual) 55 % (40-80) 09/24/17 05:15 Lymphocytes 22 % (20-50) 09/24/17 05:15 Monocytes 23 % (2-10) H 09/24/17 05:15 Eosinophils 0 % (0-5) 09/23/17 05:15 Basophils 0 % (0-3) 09/23/17 05:15 Platelet Estimate DECREASED PLATELETS (NORMAL) 09/24/17 05:15 PT 10.6 SECONDS (9.5-11.5) 09/22/17 10:45 INR 1.02 (0.5-1.4) 09/22/17 10:45 PTT (Actin FS) 28.5 SECONDS (26.0-38.0) 09/22/17 10:45 Sodium 129 mEq/L (136-145) L 09/24/17 05:15 Potassium 3.8 mEq/L (3.5-5.1) 09/24/17 05:15 Chloride 99 mEq/L (98-107) 09/24/17 05:15 Carbon Dioxide 21.6 mEq/L (21.0-31.0) 09/24/17 05:15 Anion Gap 12.2 (7.0-16.0) 09/24/17 05:15 BUN 15 mg/dL (7-25) 09/24/17 05:15 Creatinine 1.0 mg/dL (0.7-1.3) 09/24/17 05:15 Est GFR ( Amer) > 60.0 ml/min (>90) 09/24/17 05:15 Est GFR (Non-Af Amer) > 60.0 ml/min 09/24/17 05:15 BUN/Creatinine Ratio 15.0 09/24/17 05:15 Glucose 88 mg/dL (70-105) 09/24/17 05:15 Whole Bld Lactic Acid 1.28 mmol/L (0.60-1.99) 09/22/17 10:45 Uric Acid 4.0 mg/dL (4.4-7.6) L 09/24/17 05:15 Calcium 9.5 mg/dL (8.6-10.3) 09/24/17 05:15 Total Bilirubin 0.7 mg/dL (0.3-1.0) 09/24/17 05:15 AST 40 U/L (13-39) H 09/24/17 05:15 ALT 15 U/L (7-52) 09/24/17 05:15 Alkaline Phosphatase 59 U/L (34-104) 09/24/17 05:15 Creatine Kinase 135 U/L (30-223) 09/22/17 10:45 Troponin I < 0.01 ng/mL (0.01-0.05) L 09/22/17 10:45 Total Protein 7.4 gm/dL (6.0-8.3) 09/24/17 05:15 Albumin 4.1 gm/dL (4.2-5.5) L 09/24/17 05:15 Globulin 3.3 gm/dL 09/24/17 05:15 Albumin/Globulin Ratio 1.2 (1.0-1.8) 09/24/17 05:15 TSH 2.74 uIU/ml (0.34-5.60) 09/24/17 05:15 Urine Source MIDSTREAM 09/22/17 11:50 Urine Color YELLOW 09/22/17 11:50 Urine Clarity CLEAR (CLEAR) 09/22/17 11:50 Urine pH 7.5 (4.6 - 8.0) 09/22/17 11:50 Ur Specific [place] 1.010 (1.005-1.030) 09/22/17 11:50 Urine Protein NEGATIVE mg/dL (NEGATIVE) 09/22/17 11:50 Urine Glucose (UA) NEGATIVE mg/dL (NEGATIVE) 09/22/17 11:50 Urine Ketones NEGATIVE mg/dL (NEGATIVE) 09/22/17 11:50 Urine Blood NEGATIVE (NEGATIVE) 09/22/17 11:50 Urine Nitrate NEGATIVE (NEGATIVE) 09/22/17 11:50 Urine Bilirubin NEGATIVE (NEGATIVE) 09/22/17 11:50 Urine Urobilinogen 0.2 E.U./dL (0.2 - 1.0) 09/22/17 11:50 Ur Leukocyte Esterase NEGATIVE (NEGATIVE) 09/22/17 11:50 - Physical Exam Vitals and I&O: Vital Signs Temp 98.1 F 09/24/17 11:36 Pulse 83 09/24/17 11:36 Resp 21 09/24/17 13:00 BP 133/89 09/24/17 11:36 Pulse Ox 95 09/24/17 11:36 Intake & Output 09/23/17 09/24/17 09/24/17 18:59 06:59 18:59 Intake Total 1000 1300 Output Total 2700 Balance 1000 -1400 Weight (lbs) 86.636 kg Intake: Intake, IV Amount 1000 1000 Sodium Chloride 0.9% 1, 1000 1000 000 ml @ 100 mls/hr IV . Q10H [facility] Rx#:[id number] Oral 300 Output: Urine 2700 Other: # Bowel Movements 2 Stool Characteristics Soft Liquid Weight Source Bedscale Active Medications: Current Medications Acetaminophen (Tylenol) 650 mg PO Q6H PRN PRN Reason: Pain (Mild) Stop: 11/22/17 11:17 Last Admin: 09/24/17 04:23 Dose: 650 mg Amlodipine Besylate (Norvasc) 10 mg PO DAILY [facility] Stop: 11/23/17 15:29 Atenolol (Tenormin) 25 mg PO DAILY [facility] Stop: 11/23/17 08:59 Last Admin: 09/24/17 09:02 Dose: 25 mg Benztropine Mesylate (Cogentin) 2 mg PO BID [facility] Stop: 11/22/17 16:59 Last Admin: 09/24/17 09:00 Dose: 2 mg Bisacodyl (Dulcolax 5 Mg Ec Tab) 10 mg PO BID [facility] Stop: 11/22/17 16:59 Last Admin: 09/24/17 13:21 Dose: Not Given Buspirone HCl (Buspar) 5 mg PO BID [facility]; Protocol Stop: 11/22/17 16:59 Last Admin: 09/24/17 09:02 Dose: 5 mg Calcium/Vitamin D (Oscal W/Vitamin D) 1 tab PO DAILY [facility] Stop: 11/23/17 08:59 Last Admin: 09/24/17 09:01 Dose: 1 tab Divalproex Sodium (Depakote Dr) 250 mg PO BID [facility]; Protocol Stop: 11/22/17 16:59 Last Admin: 09/24/17 09:00 Dose: 250 mg Docusate Sodium (Colace) 100 mg PO BID [facility] Stop: 11/22/17 16:59 Last Admin: 09/24/17 13:22 Dose: Not Given Famotidine (Pepcid) 20 mg PO DAILY [facility] Stop: 11/23/17 08:59 Last Admin: 09/24/17 09:01 Dose: 20 mg Fludrocortisone Acetate (Florinef) 0.1 mg PO DAILY [facility] Stop: 11/23/17 08:59 Last Admin: 09/24/17 09:04 Dose: 0.1 mg Levetiracetam (Keppra) 1,500 mg PO BID [facility] Stop: 11/22/17 16:59 Last Admin: 09/24/17 08:58 Dose: 1,500 mg Levothyroxine Sodium (Synthroid) 0.05 mg PO QDAC [facility] Stop: 11/23/17 07:29 Last Admin: 09/24/17 06:38 Dose: 0.05 mg Magnesium Hydroxide (Milk Of Magnesia) 30 ml PO DAILY PRN PRN Reason: Constipation Stop: 11/22/17 13:41 Last Admin: 09/23/17 20:59 Dose: 30 ml Miscellaneous (Lurasidone Hcl [Latuda]) 40 mg PO HS [facility] Stop: 11/22/17 20:59 Pantoprazole Sodium (Protonix) 40 mg PO DAILY [facility] Stop: 11/23/17 08:59 Last Admin: 09/24/17 09:01 Dose: 40 mg Phenyleph/Shark Oil/Glycerin/Petrol (Preparation-H) 1 appl TP QID [facility] Stop: 11/22/17 16:59 Last Admin: 09/23/17 21:00 Dose: 1 appl Psyllium Hydrophilic Mucilloid (Metamucil) 1 pkt PO DAILY [facility] Stop: 11/23/17 08:59 Last Admin: 09/24/17 09:00 Dose: 1 pkt Sodium Chloride (Nacl Tab) 2 gm PO TID [facility] Stop: 11/23/17 13:59 Last Admin: 09/24/17 13:33 Dose: 2 gm Tamsulosin HCl (Flomax) 0.4 mg PO DAILY [facility] Stop: 11/23/17 08:59 Last Admin: 09/24/17 09:00 Dose: 0.4 mg General: Alert, No acute distress HEENT: Atraumatic, Mucous membr. moist/pink Neck: Supple, +2 carotid pulse wo bruit Cardiovascular: Regular rate, Normal S1, Normal S2 Lungs: Clear to auscultation Abdomen: Bowel sounds, Soft Extremities: no Edema Neurological: Sensation intact Skin: no Rash Psych/Mental Status: Other (confused) Assessment/Plan - Assessment Assessment: hyponatremia seizure disorder HTN Alz Dementia Depression Hypothyroid metab Enceph - Plan Plan: cpm will monitor
[2017-09-25] MEDS: PHENYLEPHRINE TP SCH ×4 (02:45→17:12)
[2017-09-25 06:37] LABS: ANION GAP 9.6 (7.0-16.0); BUN - UREA NITROGEN 22 mg/dL (7-25); CALCIUM SERUM 8.9 mg/dL (8.6-10.3); CARBON DIOXIDE 23.3 mEq/L (21.0-31.0); CHLORIDE 104 mEq/L (98-107); GFR AFRICAN-AMERICAN > 60.0 ml/min (>90); GFR NON AFRICAN-AMERICAN > 60.0 ml/min; GLUCOSE 84 mg/dL (70-105); POTASSIUM SERUM 3.9 mEq/L (3.5-5.1); SODIUM SERUM 133 mEq/L (136-145)
[2017-09-25] MEDS: Levothyroxine 0.05 Mg Tab PO SCH (09:35)
[2017-09-25] MEDS: Pantoprazole 40 mg EC Tab PO SCH (09:36)
[2017-09-25] MEDS: Benztropine 1 MG TAB PO SCH ×2 (09:36→17:11)
[2017-09-25] MEDS: Calcium Carb/Vit D 500 mg/200 U Tab PO SCH (09:37)
[2017-09-25 13:38] LABS: ALB/GLOB RATIO 1.3 (1.0-1.8); ALBUMIN 3.7 gm/dL (4.2-5.5); ALKALINE PHOSPHATASE 49 U/L (34-104); ANION GAP 12.4 (7.0-16.0); BILIRUBIN,TOTAL 0.7 mg/dL (0.3-1.0); BUN - UREA NITROGEN 22 mg/dL (7-25); CALCIUM SERUM 8.9 mg/dL (8.6-10.3); CARBON DIOXIDE 21.4 mEq/L (21.0-31.0); CHLORIDE 104 mEq/L (98-107); GFR AFRICAN-AMERICAN > 60.0 ml/min (>90); GFR NON AFRICAN-AMERICAN > 60.0 ml/min; GLUCOSE 77 mg/dL (70-105); POTASSIUM SERUM 3.8 mEq/L (3.5-5.1); SGOT 40 U/L (13-39); SGPT/ALT 18 U/L (7-52); SODIUM SERUM 134 mEq/L (136-145); TOTAL PROTEIN,SERUM 6.5 gm/dL (6.0-8.3)
--- NOTE | 2017-09-25 14:04 | General Progress Note ---
Subjective - Review of Systems Service Date: 09/25/17 Subjective: awake, still verbal, confused Objective - Results Result Diagrams: 09/24/17 05:15 09/25/17 05:20 Recent Labs: Laboratory Last Values WBC 12.4 Th/cmm (4.8-10.8) H D 09/24/17 05:15 RBC 4.86 Mil/cmm (4.30-5.70) 09/24/17 05:15 Hgb 16.1 gm/dL (12-16) 09/24/17 05:15 Hct 47.0 % (41.0-60) 09/24/17 05:15 MCV 96.7 fl (80-99) 09/24/17 05:15 MCH 33.1 pg (26.0-30.0) H 09/24/17 05:15 MCHC Differential 34.2 pg (28.0-36.0) 09/24/17 05:15 RDW 15.0 % (11.5-20.0) 09/24/17 05:15 Plt Count 107 Th/cmm (150-400) L 09/24/17 05:15 MPV 9.1 fl 09/24/17 05:15 Add Manual Diff YES 09/24/17 05:15 Neutrophils % 63.4 % (40.0-80.0) 09/22/17 10:45 Band Neutrophils % 1 % (0-10) 09/23/17 05:15 Lymphocytes % 23.7 % (20.0-50.0) 09/22/17 10:45 Monocytes % 12.1 % (2.0-10.0) H 09/22/17 10:45 Eosinophils % 0.5 % (0.0-5.0) 09/22/17 10:45 Basophils % 0.3 % (0.0-2.0) 09/22/17 10:45 Neutrophils (Manual) 55 % (40-80) 09/24/17 05:15 Lymphocytes 22 % (20-50) 09/24/17 05:15 Monocytes 23 % (2-10) H 09/24/17 05:15 Eosinophils 0 % (0-5) 09/23/17 05:15 Basophils 0 % (0-3) 09/23/17 05:15 Platelet Estimate DECREASED PLATELETS (NORMAL) 09/24/17 05:15 PT 10.6 SECONDS (9.5-11.5) 09/22/17 10:45 INR 1.02 (0.5-1.4) 09/22/17 10:45 PTT (Actin FS) 28.5 SECONDS (26.0-38.0) 09/22/17 10:45 Sodium 133 mEq/L (136-145) L 09/25/17 05:20 Potassium 3.9 mEq/L (3.5-5.1) 09/25/17 05:20 Chloride 104 mEq/L (98-107) 09/25/17 05:20 Carbon Dioxide 23.3 mEq/L (21.0-31.0) 09/25/17 05:20 Anion Gap 9.6 (7.0-16.0) 09/25/17 05:20 BUN 22 mg/dL (7-25) 09/25/17 05:20 Creatinine 1.0 mg/dL (0.7-1.3) 09/25/17 05:20 Est GFR ( Amer) > 60.0 ml/min (>90) 09/25/17 05:20 Est GFR (Non-Af Amer) > 60.0 ml/min 09/25/17 05:20 BUN/Creatinine Ratio 22.0 09/25/17 05:20 Glucose 84 mg/dL (70-105) 09/25/17 05:20 Whole Bld Lactic Acid 1.28 mmol/L (0.60-1.99) 09/22/17 10:45 Uric Acid 4.0 mg/dL (4.4-7.6) L 09/24/17 05:15 Calcium 8.9 mg/dL (8.6-10.3) 09/25/17 05:20 Total Bilirubin 0.7 mg/dL (0.3-1.0) 09/24/17 05:15 AST 40 U/L (13-39) H 09/24/17 05:15 ALT 15 U/L (7-52) 09/24/17 05:15 Alkaline Phosphatase 59 U/L (34-104) 09/24/17 05:15 Creatine Kinase 135 U/L (30-223) 09/22/17 10:45 Troponin I < 0.01 ng/mL (0.01-0.05) L 09/22/17 10:45 Total Protein 7.4 gm/dL (6.0-8.3) 09/24/17 05:15 Albumin 4.1 gm/dL (4.2-5.5) L 09/24/17 05:15 Globulin 3.3 gm/dL 09/24/17 05:15 Albumin/Globulin Ratio 1.2 (1.0-1.8) 09/24/17 05:15 TSH 2.74 uIU/ml (0.34-5.60) 09/24/17 05:15 Urine Source MIDSTREAM 09/22/17 11:50 Urine Color YELLOW 09/22/17 11:50 Urine Clarity CLEAR (CLEAR) 09/22/17 11:50 Urine pH 7.5 (4.6 - 8.0) 09/22/17 11:50 Ur Specific [place] 1.010 (1.005-1.030) 09/22/17 11:50 Urine Protein NEGATIVE mg/dL (NEGATIVE) 09/22/17 11:50 Urine Glucose (UA) NEGATIVE mg/dL (NEGATIVE) 09/22/17 11:50 Urine Ketones NEGATIVE mg/dL (NEGATIVE) 09/22/17 11:50 Urine Blood NEGATIVE (NEGATIVE) 09/22/17 11:50 Urine Nitrate NEGATIVE (NEGATIVE) 09/22/17 11:50 Urine Bilirubin NEGATIVE (NEGATIVE) 09/22/17 11:50 Urine Urobilinogen 0.2 E.U./dL (0.2 - 1.0) 09/22/17 11:50 Ur Leukocyte Esterase NEGATIVE (NEGATIVE) 09/22/17 11:50 - Physical Exam Vitals and I&O: Vital Signs Temp 97.4 F 09/25/17 11:44 Pulse 73 09/25/17 11:44 Resp 17 09/25/17 11:44 BP 119/75 09/25/17 11:44 Pulse Ox 97 09/25/17 11:44 Intake & Output 09/24/17 09/25/17 09/25/17 18:59 06:59 18:59 Intake Total 900 Output Total 750 Balance 150 Weight (lbs) 86.636 kg Intake: Oral 900 Output: Urine 750 Other: # Voids 3 # Bowel Movements 0 Stool Characteristics Soft Liquid Weight Source Bedscale Active Medications: Current Medications Acetaminophen (Tylenol) 650 mg PO Q6H PRN PRN Reason: Pain (Mild) Stop: 11/22/17 11:17 Last Admin: 09/25/17 00:56 Dose: 650 mg Amlodipine Besylate (Norvasc) 10 mg PO DAILY [facility] Stop: 11/23/17 15:29 Last Admin: 09/25/17 09:38 Dose: 10 mg Atenolol (Tenormin) 25 mg PO DAILY [facility] Stop: 11/23/17 08:59 Last Admin: 09/25/17 09:36 Dose: 25 mg Benztropine Mesylate (Cogentin) 2 mg PO BID [facility] Stop: 11/22/17 16:59 Last Admin: 09/25/17 09:36 Dose: 2 mg Bisacodyl (Dulcolax 5 Mg Ec Tab) 10 mg PO BID [facility] Stop: 11/22/17 16:59 Last Admin: 09/25/17 09:36 Dose: 10 mg Buspirone HCl (Buspar) 5 mg PO BID [facility]; Protocol Stop: 11/22/17 16:59 Last Admin: 09/25/17 09:36 Dose: 5 mg Calcium/Vitamin D (Oscal W/Vitamin D) 1 tab PO DAILY [facility] Stop: 11/23/17 08:59 Last Admin: 09/25/17 09:37 Dose: 1 tab Divalproex Sodium (Depakote Dr) 250 mg PO BID [facility]; Protocol Stop: 11/22/17 16:59 Last Admin: 09/25/17 09:36 Dose: 250 mg Docusate Sodium (Colace) 100 mg PO BID [facility] Stop: 11/22/17 16:59 Last Admin: 09/25/17 09:36 Dose: 100 mg Famotidine (Pepcid) 20 mg PO DAILY [facility] Stop: 11/23/17 08:59 Last Admin: 09/25/17 09:35 Dose: 20 mg Fludrocortisone Acetate (Florinef) 0.1 mg PO DAILY [facility] Stop: 11/23/17 08:59 Last Admin: 09/25/17 09:38 Dose: 0.1 mg Levetiracetam (Keppra) 1,500 mg PO BID [facility] Stop: 11/22/17 16:59 Last Admin: 09/25/17 09:37 Dose: 1,500 mg Levothyroxine Sodium (Synthroid) 0.05 mg PO QDAC [facility] Stop: 11/23/17 07:29 Last Admin: 09/25/17 09:35 Dose: 0.05 mg Magnesium Hydroxide (Milk Of Magnesia) 30 ml PO DAILY PRN PRN Reason: Constipation Stop: 11/22/17 13:41 Last Admin: 09/23/17 20:59 Dose: 30 ml Miscellaneous (Lurasidone Hcl [Latuda]) 40 mg PO HS [facility] Stop: 11/22/17 20:59 Pantoprazole Sodium (Protonix) 40 mg PO DAILY [facility] Stop: 11/23/17 08:59 Last Admin: 09/25/17 09:36 Dose: 40 mg Phenyleph/Shark Oil/Glycerin/Petrol (Preparation-H) 1 appl TP QID [facility] Stop: 11/22/17 16:59 Last Admin: 09/25/17 09:45 Dose: 1 appl Psyllium Hydrophilic Mucilloid (Metamucil) 1 pkt PO DAILY [facility] Stop: 11/23/17 08:59 Last Admin: 09/25/17 09:39 Dose: 1 pkt Sodium Chloride (Nacl Tab) 2 gm PO TID [facility] Stop: 11/23/17 13:59 Last Admin: 09/25/17 13:57 Dose: 2 gm Tamsulosin HCl (Flomax) 0.4 mg PO DAILY [facility] Stop: 11/23/17 08:59 Last Admin: 09/25/17 09:38 Dose: 0.4 mg General: Alert, No acute distress HEENT: Atraumatic, Mucous membr. moist/pink Neck: Supple, +2 carotid pulse wo bruit Cardiovascular: Regular rate, Normal S1, Normal S2 Lungs: Clear to auscultation Abdomen: Bowel sounds, Soft Extremities: no Edema Neurological: Sensation intact Skin: no Rash Psych/Mental Status: Other (confused) Assessment/Plan - Assessment Assessment: Chronic Hyponatremia Metab Enceph Hypothyroid Ess Htn Epilepsy Alzh Dementia Depression - Plan Plan: Lab - Result Diagrams 09/24/17 05:15 09/24/17 05:15 Current Medications Acetaminophen (Tylenol) 650 mg PO Q6H PRN PRN Reason: Pain (Mild) Stop: 11/22/17 11:17 Last Admin: 09/24/17 04:23 Dose: 650 mg Amlodipine Besylate (Norvasc) 10 mg PO DAILY [facility] Stop: 11/23/17 15:29 Atenolol (Tenormin) 25 mg PO DAILY [facility] Stop: 11/23/17 08:59 Last Admin: 09/24/17 09:02 Dose: 25 mg Benztropine Mesylate (Cogentin) 2 mg PO BID [facility] Stop: 11/22/17 16:59 Last Admin: 09/24/17 09:00 Dose: 2 mg Bisacodyl (Dulcolax 5 Mg Ec Tab) 10 mg PO BID [facility] Stop: 11/22/17 16:59 Last Admin: 09/24/17 13:21 Dose: Not Given Buspirone HCl (Buspar) 5 mg PO BID [facility]; Protocol Stop: 11/22/17 16:59 Last Admin: 09/24/17 09:02 Dose: 5 mg Calcium/Vitamin D (Oscal W/Vitamin D) 1 tab PO DAILY [facility] Stop: 11/23/17 08:59 Last Admin: 09/24/17 09:01 Dose: 1 tab Divalproex Sodium (Depakote Dr) 250 mg PO BID [facility]; Protocol Stop: 11/22/17 16:59 Last Admin: 09/24/17 09:00 Dose: 250 mg Docusate Sodium (Colace) 100 mg PO BID [facility] Stop: 11/22/17 16:59 Last Admin: 09/24/17 13:22 Dose: Not Given Famotidine (Pepcid) 20 mg PO DAILY [facility] Stop: 11/23/17 08:59 Last Admin: 09/24/17 09:01 Dose: 20 mg Fludrocortisone Acetate (Florinef) 0.1 mg PO DAILY [facility] Stop: 11/23/17 08:59 Last Admin: 09/24/17 09:04 Dose: 0.1 mg Levetiracetam (Keppra) 1,500 mg PO BID [facility] Stop: 11/22/17 16:59 Last Admin: 09/24/17 08:58 Dose: 1,500 mg Levothyroxine Sodium (Synthroid) 0.05 mg PO QDAC [facility] Stop: 11/23/17 07:29 Last Admin: 09/24/17 06:38 Dose: 0.05 mg Magnesium Hydroxide (Milk Of Magnesia) 30 ml PO DAILY PRN PRN Reason: Constipation Stop: 11/22/17 13:41 Last Admin: 09/23/17 20:59 Dose: 30 ml Miscellaneous (Lurasidone Hcl [Latuda]) 40 mg PO HS [facility] Stop: 11/22/17 20:59 Pantoprazole Sodium (Protonix) 40 mg PO DAILY [facility] Stop: 11/23/17 08:59 Last Admin: 09/24/17 09:01 Dose: 40 mg Phenyleph/Shark Oil/Glycerin/Petrol (Preparation-H) 1 appl TP QID [facility] Stop: 11/22/17 16:59 Last Admin: 09/23/17 21:00 Dose: 1 appl Psyllium Hydrophilic Mucilloid (Metamucil) 1 pkt PO DAILY [facility] Stop: 11/23/17 08:59 Last Admin: 09/24/17 09:00 Dose: 1 pkt Sodium Chloride (Nacl Tab) 2 gm PO TID [facility] Stop: 11/23/17 13:59 Last Admin: 09/24/17 13:33 Dose: 2 gm Tamsulosin HCl (Flomax) 0.4 mg PO DAILY [facility] Stop: 11/23/17 08:59 Last Admin: 09/24/17 09:00 Dose: 0.4 mg Lab - Result Diagrams 09/24/17 05:15 09/25/17 05:20 Na up to 133 will DC IVF for now f/u electrolytes
--- NOTE | 2017-09-25 23:54 | Consultation ---
DATE OF CONSULTATION: 09/25/2017 NEUROLOGY CONSULT HISTORY OF PRESENT ILLNESS: The patient is 61-year-old admitted with complaints of altered mentation. The patient is more lethargic than usual. There is a question of possible having had a seizure. The patient is more awake, alert, now sitting up in bed, and eating. The patient is tremulous. He was noted to be weak, but is moving all extremities now. PAST MEDICAL HISTORY: 1. Chronic hyponatremia. 2. The patient with history of psychiatric illness. 3. Questionable seizures 4. Hypertension. 5. Dementia. MEDICATIONS: As per reconciliation. Here, the patient is on Cogentin, BuSpar, divalproex, fludrocortisone, Keppra 1500 mg b.i.d., Synthroid, and pantoprazole. REVIEW OF SYSTEMS: Twelve point negative except for above. PHYSICAL EXAMINATION: VITAL SIGNS: Temperature 97.8, blood pressure 130/80, and pulse is 102. NECK: Supple, no bruits. HEART: Sounds S1 and S2. LUNGS: Clear. NEUROLOGIC: The patient is now awake, eating. Speaks Gu[place]ian. He is very confused. Pupils react to light. Full eye movement, no nystagmus. No new facial weakness. Motor, he will lift both arms up. Lift both legs up. The patient has tremor. The patient has increased tone with some parkinsonian features. IMPRESSION: 1. Encephalopathy, improving. 2. Possible unwitnessed seizure. 3. The patient with hyponatremia. 4. Hypothyroidism. 5. Hypertension. 6. Dementia. 7. Depression. PLAN: Continue present treatment. CT scan of the head. JOB# [id number]
--- NOTE | 2017-09-26 09:44 | Diagnostic Imaging Report ---
CT scan of the brain without intravenous contrast HISTORY: ALOC Total DLP equals 809 CTDI equals 39.6 COMPARISON with 07/08/2017 Axial sections were obtained from the base of the skull to the vertex. There is prominence/enlargement of the ventricular system size. Associated enlargement of cerebral sulci and subarachnoid cisterns. Findings are consistent with changes of generalized cerebral atrophy. No acute parenchymal abnormalities. No acute cerebral hemorrhage. Hypodensity is seen within the supratentorial white matter regions without mass effect. The findings may be associated with chronic small vessel ischemic disease. No extra-axial masses or abnormal fluid collections. IMPRESSION: 1. No acute abnormalities 2. Cerebral atrophy 3. Supratentorial white matter changes that may reflect chronic small vessel ischemic disease
--- NOTE | 2017-10-13 20:59 | Discharge Summary ---
DATE OF DISCHARGE: 09/25/2017 HOSPITAL COURSE: The patient came to [facility] on 09/22/2017 and the patient was discharged on 09/25/2017 and the patient was discharged with [facility] placed. The patient was admitted because the patient was altered and the patient was complaining of weakness, found to have severe hyponatremia. The patient also has a history of epilepsy, postictal state, and history of hypertension. The patient was treated ____, clinically in stable condition. On 09/25/2017, the patient was discharged back to [facility] where I will be following the patient. CONDITION AT TIME OF DISCHARGE: Stable. MEDICATIONS: See the reconciliation sheet. ACTIVITY: As tolerated. JOB# [id number]
== END 2017-09-25 19:41 | DRG 426 ==
LOC: ER 10:20 → TELE 14:14
PROVIDERS: ADMIT Internal Medicine; ATTEND Internal Medicine
DX: E87.1 Hypo-osmolality and hyponatremia (principal); G92 Toxic encephalopathy; G30.9 Alzheimer's disease, unspecified; F02.80 Dementia in other diseases classified elsewhere, unspecified severity, without behavioral disturbance, psychotic disturbance, mood disturbance, and anxiety; E03.9 Hypothyroidism, unspecified; E86.0 Dehydration; G40.909 Epilepsy, unspecified, not intractable, without status epilepticus; I10 Essential (primary) hypertension; F31.9 Bipolar disorder, unspecified; Z82.49 Family history of ischemic heart disease and other diseases of the circulatory system; Z79.899 Other long term (current) drug therapy; Z79.1 Long term (current) use of non-steroidal anti-inflammatories (NSAID); Z79.2 Long term (current) use of antibiotics
CPT/HCPCS: 36415-UA; 70450-TC; 71045-TC; 80048-TC; 80053-TC; 81003-TC; 82088-90; 82533-90; 82550-TC; 83605; 83930-90; 84300-TC; 84443-TC; 84484-TC; 84550-TC; 85007-TC; 85025-TC; 85610-TC; 85730-TC; 93005; 96374; J2060; J7030; Z7610